=== PATIENT | female | born 1965 | race Caucasian/White ===

== ENCOUNTER 2019-01-26 13:10 | Emergency (ER) | payer OTHER ==
[~2019-01-26] VITALS: Ht 167.6 cm; Wt 56.7 kg
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
--- OUTSIDE RECORDS SUMMARY | ~2019-01-26 | XMS | Encounter Summary ---
Demographics + + + | Address | [address] | | | [place] [address] | + + + | Home Phone | | + + + | Preferred Language | Unknown | + + + | Marital Status | Single | + + + | Yarsani Affiliation | EPI | + + + | Race | White | + + + | Ethnic Group | Not or | + + + Author + + + | Author | [facility] | + + + | Organization | [facility] | + + + | Address | Unknown | + + + | Phone | Unavailable | + + + Support + + + + + | Name | Relationship | Address | Phone | + + + + + | Nurys Florse | ECON | [address] | | | | | [place], | | | | | [place] [address] | | + + + + + Care Team Providers + +------+ + | Care Press Technician Name | Role | Phone | + +------+ + | Juanjo Ro MD | PCP | | + +------+ + Encounter Details +--------+ + + + + | Date | Type | Department | Care Team | Description | +--------+ + + + + | 08/12/ | Document-Sc | UNKNOWN DEPARTMENT | Radiologist, | | | 2009 | anned | [address] | General Phillip | | | | | [address] | | | | | | [place], [place] | | | | | | [address] | | | +--------+ + + + + Social History + + [...] + + documented as of this encounter Plan of Treatment Not on filedocumented as of this encounter Visit Diagnoses Not on filedocumented in this encounter"
--- OUTSIDE RECORDS SUMMARY | ~2019-01-26 | XMS | Encounter Summary ---
Demographics + + + | Address | [address] | | | [place] [address] | + + + | Home Phone | | + + + | Preferred Language | Unknown | + + + | Marital Status | Single | + + + | Shinto Affiliation | EPI | + + + | Race | White | + + + | Ethnic Group | Not or | + + + Author + + + | Author | [facility] | + + + | Organization | [facility] | + + + | Address | Unknown | + + + | Phone | Unavailable | + + + Support + + + + + | Name | Relationship | Address | Phone | + + + + + | Nurys Flores | ECON | [address] | | | | | [place], | | | | | [place] [address] | | + + + + + Care Team Providers + +------+ + | Care Client Server Developer Name | Role | Phone | + +------+ + | Juanjo Ro MD | PCP | | + +------+ + Encounter Details +--------+ + + + + | Date | Type | Department | Care Team | Description | +--------+ + + + + | 01/20/ | Ancillary | Registration [id number] | Victor Mnauel Crowley MD | | | 2006 | Registratio | [address] | | | | | n | Alex Mailcode: [id number] | | | | | | [place], [place] | | | | | | [address] | | | | | | [phone] | | | +--------+ + + + [...]
--- OUTSIDE RECORDS SUMMARY | ~2019-01-26 | XMS | Encounter Summary ---
Demographics + + + | Address | [address] | | | [place] [address] | + + + | Home Phone | | + + + | Preferred Language | Unknown | + + + | Marital Status | Single | + + + | Advent Affiliation | EPI | + + + | Race | White | + + + | Ethnic Group | Not or | + + + Author + + + | Author | [facility] | + + + | Organization | [facility] | + + + | Address | Unknown | + + + | Phone | Unavailable | + + + Support + + + + + | Name | Relationship | Address | Phone | + + + + + | Nurys Flores | ECON | [address] | | | | | [place], | | | | | [place] [address] | | + + + + + Care Team Providers + +------+ + | Care Division Chair Name | Role | Phone | + +------+ + | Juanjo Ro MD | PCP | | + +------+ + Reason for Visit + + + | Reason | Comments | + + + | Pre-op evaluation | L clavicle | + + + Consult to [place] (Routine) +--------+--------+ + + + + | Status | Reason | Specialty | Diagnoses / | Referred By | Referred To | | | | | Procedures | Contact | Contact | +--------+--------+ + + + + | Closed | | Orthopedics | Diagnoses | Keo | [facility] | | | | | Other | MD Victor Manuel | [facility] [address] | | | | | complication | [address] | [address] | | | | | s due to | [address] | | | | | other | Rd | Mailcode: | | | | | internal | [place], [place] | [id number] | | | | | orthopedic | [address] | [facility] | | | | | device, | | [facility] | | | | | implant, and | | [place], [place] | | | | | graft s/p | | [address] | | | | | left | | Phone: | | | | | Artis | | [phone] | | | | | cc ligament | | Fax: | | | | | reconstructi | | [phone] | | | | | on | | | | | | | Painful | | | | | | | hardware | | | | | | | Procedures | | | | | | | AL REMOVAL | | | | | | | DEEP IMPLANT | | | | | | | hardware | | | | | | | removal left | | | | | | | clavicle | | | +--------+--------+ + + + + Encounter Details +--------+---------+ + + + | Date | Type | Department | Care Team | Description | +--------+---------+ + + + | 07/12/ | Office | Orthopaedics at | Victor Manuel Crowley MD | Other Specified | | 2008 | Visit | [facility] [address] | | Pre-Operative | | | | [address] | | Examination (Primary | | | | Mail[address]: [id number] | | Dx) | | | | [facility] | | | | | | [place], [place] | | | | | | [address] | | | | | | [phone] | | | +--------+---------+ + + + Social History [...] + + + | Blood Pressure | 106/79 | 07/12/2008 2:23 PM | | | | | PDT | | + + + + + | Pulse | 86 | 07/12/2008 2:23 PM | | | | | PDT | | + + + + + | Temperature | 36.9 C (98.4 F) | 07/12/2008 2:23 PM | | | | | PDT | | + + + + + | Respiratory Rate | 17 | 07/12/2008 2:23 PM | | | | | PDT | | + + + + + | Oxygen Saturation | - | - | | + + + + + | Inhaled Oxygen | - | - | | | Concentration | | | | + + + + + | Weight | - | - | | + + + + + | Height | - | - | | + + + + + | Body Mass Index | - | - | | + + + + + documented in this encounter Patient Instructions Patient Instructions Jacquelyn Milton - 06/29/2008 4:46 PM PDTRegistration Locations (please ch easton in at one of the following registration desks prior to surgery) For surgeries scheduled to take place on the [place] at the [facility]: Surgeries scheduled in the [facility] ([address] [place] [address]): registration is located on the 4th floor of [facility] (Day Surgery). Surgeries scheduled in the [facility]: registration is located on the 9th floor. Surgeries scheduled in [facility]: registration is located on the 6th floor. Surgeries scheduled in the [facility]: registration is located i n the [facility] on the first floor. For surgeries scheduled to take place at the [facility]: registration is l ocated on the 4th floor (Surgery Center). Important Information Due to the increased prevalence of pests in our community, we are asking patients to partne r with us to keep our hospital clean. If you have noticed bugs or other pests in your home, on your belongings or on your body, please contact your doctor's office prior to your admis trace. For your safety and protection, please limit what you bring to the hospital. All valuables should be left at home. This includes pillows, blankets, clothing, purses, wallets, money an d jewelry. Patients may not bring personal electronics into the hospital, including hairdry ers, electric eric, radios and CD players. If you use specialized medical equipment at [facility], please check with your provider before bringing it with you into the hospital. Registration Process for all Admissions/Surgeries Please bring your insurance card(s) with you and be prepared to pay any co-payment, co-insu naveen or deposit that may be required. Once you arrive at the registration desk, you will be interviewed by a Patient Access Servi ce Specialist (ASPEN). Demographics will be verified (example: name, date of , Social Se curity Number, address, insurance). You will be asked to sign some paperwork: Terms and Conditions of Service, Notice of Privac y Practices Acknowledgement and Genetic Testing Opt Out. You will be given some paperwork: copies of any forms signed by you, Patient Rights, Respon sibilities and Safety, Understanding Advance Directives, and Smoking Cessation Brochure. Registration Locations (please check in at one of the following registration desks prior to surgery) For surgeries scheduled to take place on the north [place] at the [facility]: Surgeries scheduled in the [facility] ( North): registration is located on the 4th floor of [facility] (Day Surgery). Surgeries scheduled in the [facility]: registration is located on the 9th floor. Surgeries scheduled in [facility]: registration is located on the 6th floor. Surgeries scheduled in the [facility]: registration is located i n the [facility] on the first floor. For surgeries scheduled to take place at the [facility]: registration is l ocated on the 4th floor (Surgery Center). Important Information Due to the increased prevalence of pests in our community, we are asking patients to partne r with us to keep our hospital clean. If you have noticed bugs or other pests in your home, on your belongings or on your body, please contact your doctor's office prior to your admis trace. For your safety and protection, please limit what you bring to the hospital. All valuables should be left at home. This includes pillows, blankets, clothing, purses, wallets, money an d jewelry. Patients may not bring personal electronics into the hospital, including hairdry ers, electric eric, radios and CD players. If you use specialized medical equipment at [facility], please check with your provider before bringing it with you into the hospital. Registration Process for all Admissions/Surgeries Please bring your insurance card(s) with you and be prepared to pay any co-payment, co-insu naveen or deposit that may be required. Once you arrive at the registration desk, you will be interviewed by a Patient Access Servi ce Specialist (ASPEN). Demographics will be verified (example: name, date of , Social Se curity Number, address, insurance). You will be asked to sign some paperwork: Terms and Conditions of Service, Notice of Privac y Practices Acknowledgement and Genetic Testing Opt Out. You will be given some paperwork: copies of any forms signed by you, Patient Rights, Respon sibilities and Safety, Understanding Advance Directives, and Smoking Cessation Brochure. documented in this encounter Progress Notes Victor Manuel Crowley MD - 07/12/2008 3:51 PM PDTI saw and evaluated the patient. I agree with the findings and the plan of care as documented in the resident s note. Victor Manuel Crowley M.D. Infection Control Specialist General Orthopaedics, Trauma oque Santana MD - 07/12/2008 2:48 PM PDT Neeta Leong presents today for preoperative evaluation Diagnosis: Encounter Diagnoses Code Name Primary? Qualifier V72.83 Other Specified Pre-Operative Examination Planned Procedure: Removal of L coracoclavicular screw History of Present Illness: S/p modified Serrano-Kwan procedure after trauma; now with L sh oulder pain after fall with relatively painless ROM. Indicated for removal of hardware. Incidentally, she has some intermittent numbness and tingling in bilateral hands; occurring with resting on elbow and with waking up at night needing to "wring out" hands No past medical history on file. Past Surgical History Procedure Date Hx tonsillectomy 1969 Hx tubal ligation 1996 Hx knee surgery Right Knee Allergies: Amoxicillin No family history on file. Current outpatient prescriptions Medication Sig Dispense Refill CALCIUM ORAL twice a day MULTIVITAMINS OR Take by mouth once daily. oxycodone (immediate release) 15 mg Oral Tablet 1 tab po q4-6 hr prn pain oxycodone (immediate release) 5 mg Oral Capsule Take 5 mg by mouth every six hours as n eeded STOOL SOFTENER OR Take by mouth once daily. VITAMIN D OR one pill in the morning Review of systems: Negative for shortness of breath, chest pain, abdominal pain, fevers or chills. Physical Examination: Gen: NAD No increased work of breathing; no wheezes RRR LUE: AROM/PROM FF110, Ab 160, IR T7, ER 80 SILT m/r/u distribution distally; decreased sensation over deltoid 5/5 delt/biceps/triceps/wrist flex/ex/fing abd/add Positive Daren's on R; bilateral mild Tinels at ulnar groove and carpal tunnel Slight 1st lumbrical wasting on R Imaging: Not done yet today Past films show slight screw lucency with elevation of head from clavicle without increased distraction of clavicle from coracoid After a PARQ conference was held, the patient freely signed the consent form. She will fol low up in clinic in approximately 1 week post-operatively. Should she have any questions o r concerns prior to her next visit, she will contact the clinic. Will discuss further tx of R shoulder and possible carpal tunnel vs ulnar neuropathy and wo rkup at next visit. documented in this en counter Plan of Treatment Not on filedocumented as of this encounter Visit Diagnoses + + | Diagnosis | + + | Other specified pre-operative examination - Primary | + + documented in this encounter
--- OUTSIDE RECORDS SUMMARY | ~2019-01-26 | XMS | Encounter Summary ---
Demographics + + + | Address | [address] | | | [place] [address] | + + + | Home Phone | | + + + | Preferred Language | Unknown | + + + | Marital Status | Single | + + + | Cheondoism Affiliation | EPI | + + + | Race | White | + + + | Ethnic Group | Not or | + + + Author + + + | Author | [facility] | + + + | Organization | [facility] | + + + | Address | Unknown | + + + | Phone | Unavailable | + + + Support + + + + + | Name | Relationship | Address | Phone | + + + + + | Nurys Flores | ECON | [address] | | | | | [place], | | | | | [place] [address] | | + + + + + Care Team Providers + +------+ + | Care Card Lacer Jacquard Name | Role | Phone | + +------+ + | Svetlana Cedillo | PCP | | | MD | | | + +------+ + Reason for Visit + + + | Reason | Comments | + + + | Pre-op evaluation | | + + + Encounter Details +--------+---------+ + + + | Date | Type | Department | Care Team | Description | +--------+---------+ + + + | 02/08/ | Office | Preoperative | Charo Spears, | Clavicle Fracture; | | 2007 | Visit | Medicine Clinic at | [facility] [address] [facility] [facility] | Closed Fracture of | | | | M[facility] 4th Floor Day | [address] | Proximal End of | | | | Stay [address] | [place], [place] | Humerus; Closed | | | | [address] | [address] | Fracture of Sacrum | | | | Mailcode: [id number] | [phone] | and Coccyx ([facility]); | | | | [facility] | | Other Specified | | | | [address] [place], [place] | | Pre-Operative | | | | [address] | | Examination | | | | [phone] | | | +--------+---------+ + + + [...] + + + | Blood Pressure | 108/72 | 02/09/2008 1:10 PM | | | | | PDT | | + + + + + | Pulse | 88 | 02/09/2008 1:10 PM | | | | | PDT | | + + + + + | Temperature | 36.3 C (97.3 F) | 02/09/2008 1:10 PM | | | | | PDT | | + + + + + | Respiratory Rate | 14 | 02/09/2008 1:10 PM | | | | | PDT | | + + + + + | Oxygen Saturation | 100% | 02/09/2008 1:10 PM | | | | | PDT | | + + + + + | Inhaled Oxygen | - | - | | | Concentration | | | | + + + + + | Weight | 59.9 kg (132 lb) | 02/09/2008 1:10 PM | | | | | PDT | | + + + + + | Height | 167.6 cm (5' 6") | 02/09/2008 1:10 PM | | | | | PDT | | + + + + + | Body Mass Index | 21.31 | 02/09/2008 1:10 PM | | | | | PDT | | + + + + + documented in this encounter Progress Charo Perla - 02/09/2008 1:34 PM PDTSee Scanned H&P. documented in this enco unter Plan of Treatment + + +--------+ + + | Name | Type | Priori | Associated Diagnoses | Order Schedule | | | | ty | | | + + +--------+ + + | MA COLLECTION VENOUS | Procedures | Routin | Clavicle Fracture | Ordered: 02/09/2008 | | BLOOD,VENIPUNCTURE | | e | Closed Fracture of | | | | | | Proximal End of | | | | | | Humerus Closed | | | | | | Fracture of Sacrum | | | | | | and Coccyx (HCC) | | | | | | Other Specified | | | | | | Pre-Operative | | | | | | Examination | | + + +--------+ + + documented as of this encounter Procedures + +--------+ + + + | Procedure Name | Priori | Date/Time | Associated Diagnosis | Comments | | | ty | | | | + +--------+ + + + | CAPILLARY BLOOD | Routin | 02/09/2008 | Clavicle Fracture | Results for this | | GLUCOSE (NO CHG), | e | 2:17 PM | Closed Fracture of | procedure are in the | | POC | | PDT | Proximal End of | results section. | | | | | Humerus Closed | | | | | | Fracture of Sacrum | | | | | | and Coccyx ([facility]) | | | | | | Other Specified | | | | | | Pre-Operative | | | | | | Examination | | + +--------+ + + + | TYPE AND SCREEN | Routin | 02/09/2008 | Clavicle Fracture | Results for this | | | e | 1:42 PM | Closed Fracture of | procedure are in the | | | | PDT | Proximal End of | results section. | | | | | Humerus Closed | | | | | | Fracture of Sacrum | | | | | | and Coccyx ([facility]) | | | | | | Other Specified | | | | | | Pre-Operative | | | | | | Examination | | + +--------+ + + + documented in this encounter Results CAPILLARY BLOOD GLUCOSE, POC (02/09/2008 2:17 PM PDT) + + + + + + | Component | Value | Ref Range | Performed | Pathologist | | | | | At | Signature | + + + + + + | BLOOD | 130 (A)Comment: fasting | 60 - 110 mg/dL | [facility] | | | GLUCOSE BY | | | OF CARE | | | MONITOR | | | TESTS | | + + + + + + + + + + + | Performing | Address | City/State/Zipcode | Phone Number | | Organization | | | | + + + + + | [facility] | [address] | [place], [place] | | | [facility] | [address] | [address] | | | TESTS | | | | + + + + + | [facility] | [address] | [place], [place] | | | TESTS | [address] | [address] | | + + + + + TYPE AND SCREEN (02/09/2008 1:42 PM PDT) + + + + + + | Component | Value | Ref Range | Performed | Pathologist | | | | | At | Signature | + + + + + + | ABO GROUP | A | | [facility] | | | | | | DEPARTMENT | | | | | | OF | | | | | | PATHOLOGY | | + + + + + + | RH TYPE | Positive | | [facility] | | | | | | DEPARTMENT | | | | | | OF | | | | | | PATHOLOGY | | + + + + + + | Antibody | Negative | | [facility] | | | Screen | | | DEPARTMENT | | | | | | OF | | | | | | PATHOLOGY | | + + + + + + + + | Specimen | + + | Blood - Blood | + + + + + + + | Performing | Address | City/State/Zipcode | Phone Number | | Organization | | | | + + + + + | [facility] DEPARTMENT [facility] | [address] | [place] [address] | | | PATHOLOGY | [address] | | | + + + + + | [facility] | [address] | [place] [address] | | | PATHOLOGY | [address] | | | + + + + + documented in this encounter Visit Diagnoses + + | Diagnosis | + + | Clavicle fracture Unspecified part of closed fracture of clavicle | + + | Closed fracture of proximal end of humerus Closed fracture of unspecified part of | | upper end of humerus | + + | Closed fracture of sacrum and coccyx (HCC) Closed fracture of sacrum and coccyx | | without mention of spinal cord injury | + + | Other specified pre-operative examination | + + documented in this encounter
--- OUTSIDE RECORDS SUMMARY | ~2019-01-26 | XMS | Encounter Summary ---
Demographics + + + | Address | [address] | | | [place] [address] | + + + | Home Phone | | + + + | Preferred Language | Unknown | + + + | Marital Status | Single | + + + | Confucianism Affiliation | EPI | + + + | Race | White | + + + | Ethnic Group | Not or | + + + Author + + + | Author | [facility] | + + + | Organization | [facility] | + + + | Address | Unknown | + + + | Phone | Unavailable | + + + Support + + + + + | Name | Relationship | Address | Phone | + + + + + | Nurys Flores | ECON | [address] | | | | | [place], | | | | | [place] [address] | | + + + + + Care Team Providers + +------+ + | Care Cloud Engagement Partner Name | Role | Phone | + [...] Description | +--------+---------+ + + + | 04/02/ | Office | Preoperative | Dinesh, | Preop Examination | | 2008 | Visit | Medicine Clinic at | [facility] | (Primary Dx) | | | | M[facility] 4th Day | | | | | | Stay [address] [facility] | | | | | | [address] | | | | | | Mailcode: [id number] | | | | | | Shira Jose | | | | | | [address] [place], [place] | | | | | | [address] | | | | | | [phone] | | | +--------+---------+ + + + [...] + + documented as of this encounter Progress Shelley Armstrong - 07/12/2008 3:15 PM PDTSee scanned phone visit documentation. documented in this e ncounter Plan of Treatment Not on filedocumented as of this encounter Visit Diagnoses + + | Diagnosis | + + | Preop examination - Primary Preoperative examination, unspecified | + + documented in this encounter"
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
--- OUTSIDE RECORDS SUMMARY | ~2019-01-26 | XMS | Encounter Summary ---
Demographics + + + | Address | [address] | | | [place] [address] | + + + | Home Phone | | + + + | Preferred Language | Unknown | + + + | Marital Status | Single | + + + | Sikhism Affiliation | EPI | + + + | Race | White | + + + | Ethnic Group | Not or | + + + Author + + + | Author | [facility] | + + + | Organization | [facility] | + + + | Address | Unknown | + + + | Phone | Unavailable | + + + Support + + + + + | Name | Relationship | Address | Phone | + + + + + | Nurys Flores | ECON | [address] | | | | | [place], | | | | | [place] [address] | | + + + + + Care Team Providers + +------+ + | Care Greeting Card Editor Name | Role | Phone | + [...] + + | 07/12/ | Office | Preoperative | [facility], [facility] [address] | Preop Examination | | 2008 | Visit | Medicine Clinic at | [address] | (Primary Dx) | | | | [facility] 4th Floor Day | [place] [address] | | | | | Stay [address] [facility] | | | | | | [address] | | | | | | Mailcode: [id number] | | | | | | [place] | | | | | | [address] [place], [place] | | | | | | [address] | | | | | | [phone] | | | +--------+---------+ + + + [...] this encounter Progress Shelley Armstrong - 07/12/2008 3:14 PM PDTSee scanned phone visit documentation. documented in this e ncounter Plan of Treatment Not on filedocumented as of this encounter Visit Diagnoses + + | Diagnosis | + + | Preop examination - Primary Preoperative examination, unspecified | + + documented in this encounter"
--- OUTSIDE RECORDS SUMMARY | ~2019-01-26 | XMS | Encounter Summary ---
Demographics + + + | Address | [address] | | | [place] [address] | + + + | Home Phone | | + + + | Preferred Language | Unknown | + + + | Marital Status | Single | + + + | Orthodoxy Affiliation | EPI | + + + | Race | White | + + + | Ethnic Group | Not or | + + + Author + + + | Author | [facility] | + + + | Organization | [facility] | + + + | Address | Unknown | + + + | Phone | Unavailable | + + + Support + + + + + | Name | Relationship | Address | Phone | + + + + + | Nurys Flores | ECON | [address] | | | | | [place], | | | | | [place] [address] | | + + + + + Care Team Providers + +------+ + | Care Fire Captain Name | Role | Phone | + +------+ + | Juanjo Ro MD | PCP | | + +------+ + Reason for Visit +--------+ + | Reason | Comments | +--------+ + | Other | | +--------+ + Encounter Details +--------+ + + + + | Date | Type | Department | Care Team | Description | +--------+ + + + + | 09/18/ | Telephone | Orthopaedics at | Victor Manuel Crowley MD | Other | | 2008 | | [facility] [address] | | | | | | [address] | | | | | | Mailcode: [id number] | | | | | | [place] | | | | | | [place], [place] | | | | | | [address] | | | | | | [phone] | | | +--------+ + + + [...] as of this encounter Plan of Treatment + +---------+--------+ + + | Name | Type | Priori | Associated Diagnoses | Order Schedule | | | | ty | | | + +---------+--------+ + + | X-RAY CLAVICLE | Imaging | Routin | Clavicle Fracture | Ordered: 09/22/2007 | | COMPLETE | | e | | | + +---------+--------+ + + documented as of this encounter Visit Diagnoses + + | Diagnosis | + + | Clavicle fracture Unspecified part of closed fracture of clavicle | + + | Closed fracture of proximal end of humerus Closed fracture of unspecified part of | | upper end of humerus | + + documented in this encounter"
--- OUTSIDE RECORDS SUMMARY | ~2019-01-26 | XMS | Encounter Summary ---
Demographics + + + | Address | [address] | | | [place] [address] | + + + | Home Phone | | + + + | Preferred Language | Unknown | + + + | Marital Status | Single | + + + | Judaism Affiliation | EPI | + + + | Race | White | + + + | Ethnic Group | Not or | + + + Author + + + | Author | [facility] | + + + | Organization | [facility] | + + + | Address | Unknown | + + + | Phone | Unavailable | + + + Support + + + + + | Name | Relationship | Address | Phone | + + + + + | Nurys Flores | ECON | [address] | | | | | [place], | | | | | [place] [address] | | + + + + + Care Team Providers + +------+ + | Care Art Class Model Name | Role | Phone | + [...] | | | | | Stay [address] [facility] | | | | | | [address] | | | | | | Mailcode: [id number] | | | | | | [place] | | | | | | [address] [place], [place] | | | | | | [address] | | | | | | [phone] | | | +--------+---------+ + + + [...]
--- OUTSIDE RECORDS SUMMARY | ~2019-01-26 | XMS | Encounter Summary ---
Demographics + + + | Address | [address] | | | [place] [address] | + + + | Home Phone | | + + + | Preferred Language | Unknown | + + + | Marital Status | Single | + + + | Scientologist Affiliation | EPI | + + + | Race | White | + + + | Ethnic Group | Not or | + + + Author + + + | Author | [facility] | + + + | Organization | [facility] | + + + | Address | Unknown | + + + | Phone | Unavailable | + + + Support + + + + + | Name | Relationship | Address | Phone | + + + + + | Nurys Flores | ECON | [address] | | | | | [place], | | | | | [place] [address] | | + + + + + Care Team Providers + +------+ + | Care University Controller Name | Role | Phone | + +------+ + PCP | Unavailable | + +------+ + Encounter Details +--------+ + + + + | Date | Type | Department | Care Team | Description | +--------+ + + + + | 12/10/ | Results | Registration 1 | Juancarlos, | | | 2006 | Only | [address] | Rm Moreno MD [place] | | | | | Alex Mail[address]: [id number] | [facility] | | | | | [place] [address] | | | | | [address] | [address] | | | | | [phone] | [place] [address] | | +--------+ + + + + Social History + +-------+ +--------+------+ | Tobacco Use | Types | Packs/Day | Years | Date | | | | | Used | | + +-------+ +--------+------+ | Never Assessed | | | | | + +-------+ +--------+------+ + + + | Sex Assigned at [...] Not on filedocumented as of this encounter Procedures + +--------+ + + + | Procedure Name | Priori | Date/Time | Associated Diagnosis | Comments | | | ty | | | | + +--------+ + + + | X-RAY ABDOMEN 1 VIEW | Routin | 12/10/2006 | | Results for this | | | e | 12:15 PM | | procedure are in the | | | | PDT | | results section. | + +--------+ + + + documented in this encounter Results ABDOMEN 1 VIEW (12/10/2006 12:15 PM PDT) + + + + + + | Component | Value | Ref Range | Performed | Pathologist | | | | | At | Signature | + + + + + + | ABDOMEN, 1 | Radiologist 1: TAMARA, | | | | | VIEW (JARED) | Fede TEJADAEXAM: AP | | | | | | view of lower chest and | | | | | | upper abdomen for | | | | | | feeding tube. | | | | | | COMPARISON: None | | | | | | FINDINGS: Feeding tube | | | | | | has been placed with | | | | | | tip projecting in | | | | | | thegastric body. | | | | | | Evaluation of lungs | | | | | | limited as technique | | | | | | wastailored for feeding | | | | | | tube | | | | | | placement.IMPRESSION: 1. | | | | | | Feeding tube tip | | | | | | projecting in the | | | | | | gastric body. | | | | + + + + + + + + | Specimen | + + | | + + + +---------+ + + | Performing | Address | City/State/Zipcode | Phone Number | | Organization | | | | + +---------+ + + | [facility] | | | | | RADIOLOGY | | | | + +---------+ + + documented in this encounter Visit Diagnoses Not on filedocumented in this encounter"
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
--- OUTSIDE RECORDS SUMMARY | ~2019-01-26 | XMS | Encounter Summary ---
Demographics + + + | Address | [address] | | | [place] [address] | + + + | Home Phone | | + + + | Preferred Language | Unknown | + + + | Marital Status | Single | + + + | Sikh Affiliation | EPI | + + + | Race | White | + + + | Ethnic Group | Not or | + + + Author + + + | Author | [facility] | + + + | Organization | [facility] | + + + | Address | Unknown | + + + | Phone | Unavailable | + + + Support + + + + + | Name | Relationship | Address | Phone | + + + + + | Nurys Flores | ECON | [address] | | | | | [place], | | | | | [place] [address] | | + + + + + Care Team Providers + +------+ + | Care Pump Room Operator Name | Role | Phone | + +------+ + PCP | Unavailable | + +------+ + Encounter Details +--------+ + + + + | Date | Type | Department | Care Team | Description | +--------+ + + + + | 12/09/ | Respiratory | Respiratory | Marilee Cuevas | | | 2006 | Therapy | Therapy [address] [facility] | [phone] | | | | | [address] | | | | | | Mailcode: [id number] | | | | | | [place], [place] | | | | | | [address] | | | | | | [phone] | | | +--------+ + + + [...] | + +--------+ + + + | RESP CARE THERAPY | Routin | 12/10/2006 | | Results for this | | | e | 1:45 AM | | procedure are in the | | | | PDT | | results section. | + +--------+ + + + | RESP CARE THERAPY | Routin | 12/09/2006 | | Results for this | | | e | 1:00 PM | | procedure are in the | | | | PDT | | results section. | + +--------+ + + + | RESP CARE THERAPY | Routin | 12/09/2006 | | Results for this | | | e | 2:33 AM | | procedure are in the | | | | PDT | | results section. | + +--------+ + + + documented in this encounter Results RESP CARE THERAPY (12/10/2006 1:45 AM PDT) + + + + + + | Component | Value | Ref Range | Performed | Pathologist | | | | | At | Signature | + + + + + + | RESPIRATORY | Pain Assessment:Patients | | [facility] | | | CARE | pain assessed and was a | | RESPIRATORY | | | | 0 on a scale of | | THERAPY | | | | 0-10.Interventions:Patie | | | | | | nt suctioned to | | | | | | facilitate secretion | | | | | | clearance.Assessment:Sharonda | | | | | | ath Sounds: rhonchi | | | | | | bilateral .Cough/Sputum: | | | | | | The patient required | | | | | | deep suction. Secretions | | | | | | obtained: thickyellow | | | | | | .Outcome after therapy: | | | | | | Patient's breath sounds | | | | | | improved after | | | | | | therapy.Treatment | | | | | | Plan:No changes in | | | | | | therapy are | | | | | | indicated.Nasal cannula | | | | | | at 3 LPM.Electronically | | | | | | Signed by: Salazar Morris, | | | | | | POULTRY HUSBANDRY TEACHER | | | | + + + + + + + + | Specimen | + + | | + + + + + | Narrative | Performed At | + + + | Ordered by an unspecified provider. | [facility] | | | RESPIRATORY | | | THERAPY | + + + + + + + + | Performing | Address | City/[facility]/Zipcode | Phone Number | | Organization | | | | + + + + + | [facility] | [address] | [place], [place] | | | THERAPY | [address] | [address] | | + + + + + | [facility] | [address] | [place], [place] | | | THERAPY | [address] | [address] | | + + + + + RESP CARE THERAPY (12/09/2006 1:00 PM PDT) + + + + + + | Component | Value | Ref Range | Performed | Pathologist | | | | | At | Signature | + + + + + + | RESPIRATORY | Pain Assessment:Patients | | [facility] | | | CARE | pain assessed and was a | | RESPIRATORY | | | | 0 on a scale of | | THERAPY | | | | 0-10.Interventions:Patie | | | | | | nt suctioned to | | | | | | facilitate secretion | | | | | | clearance.Assessment:Sharonda | | | | | | ath Sounds: rhonchi | | | | | | .Cough/Sputum: Patient | | | | | | had a productive cough. | | | | | | Secretions obtained: | | | | | | thinwhite .Outcome after | | | | | | therapy: Patient's | | | | | | breath sounds improved | | | | | | after therapy.Treatment | | | | | | Plan:No changes in | | | | | | therapy are | | | | | | indicated.Electronically | | | | | | Signed by: Alta | | | | | | Zainab, | | | | + + + + + + + + | Specimen | + + | | + + + + + | Narrative | Performed At | + + + | Ordered by an unspecified provider. | [facility] | | | RESPIRATORY | | | THERAPY | + + + + + + + + | Performing | Address | City/State/Zipcode | Phone Number | | Organization | | | | + + + + + | [facility] | [address] | [place], [place] | | | THERAPY | [address] | [address] | | + + + + + | [facility] | [address] | [place], [place] | | | THERAPY | [facility] | [address] | | + + + + + RESP CARE THERAPY (12/09/2006 2:33 AM PDT) + + + + + + | Component | Value | Ref Range | Performed | Pathologist | | | | | At | Signature | + + + + + + | RESPIRATORY | Nasal cannula at 3 | | [facility] | | | CARE | LPM.Electronically | | RESPIRATORY | | | | Signed by: Salazar Morris, | | THERAPY | | | | POULTRY HUSBANDRY TEACHER | | | | + + + + + + + + | Specimen | + + | | + + + + + | Narrative | Performed At | + + + | Ordered by an unspecified provider. | [facility] | | | RESPIRATORY | | | THERAPY | + + + + + + + + | Performing | Address | City/State/Zipcode | Phone Number | | Organization | | | | + + + + + | [facility] | [address] | [place], [place] | | | THERAPY | [address] | [address] | | + + + + + | [facility] | [address] | [place], [place] | | | THERAPY | [facility] | [address] | | + + + + + documented in this encounter Visit Diagnoses Not on filedocumented in this encounter"
--- OUTSIDE RECORDS SUMMARY | ~2019-01-26 | XMS | Encounter Summary ---
Demographics + + + | Address | [address] | | | [place] [address] | + + + | Home Phone | | + + + | Preferred Language | Unknown | + + + | Marital Status | Single | + + + | Taoist Affiliation | EPI | + + + [...] + | Nurys Flores | ECON | [address] | | | | | [place], | | | | | [place] [address] | | + + + + + Care Team Providers + +------+ + | Care Zipper Setter Lockstitch Name | Role | Phone | + +------+ + | Juanjo Ro MD | PCP | | + +------+ + Encounter Details +--------+ + + + + | Date | Type | Department | Care Team | Description | +--------+ + + + + | 07/12/ | Senior Account Executive | Orthopaedics at | Victor Manuel Crowley MD | Clavicle Fracture | | 2008 | | [facility] [address] | | (Primary Dx) | | | | [address] | | | | | | Mailcode: [id number] | | | | | | [facility] | | | | | | [place] | | | | | | [address] | | | | | | [phone] | | | +--------+ + + + [...] on filedocumented as of this encounter Results X-RAY CLAVICLE COMPLETE (07/12/2008 3:23 PM PDT) + + + + + + | Component | Value | Ref Range | Performed | Pathologist | | | | | At | Signature | + + + + + + | CLAVICLE | COMPLETE CLAVICLE: | | | | | BILAT | 07/12/2008 Dictated | | | | | | 07/12/2008COMPARISON: | | | | | | 05/03/2008.FINDINGS: | | | | | | There is | | | | | | redemonstration of | | | | | | resection of the distal | | | | | | leftclavicle. | | | | | | Coracoclavicular screw | | | | | | shows increased lucency | | | | | | around itsclavicular | | | | | | and acromial portions, | | | | | | with the lucency | | | | | | measuring up to 4mm. | | | | | | Up to 2 mm distance | | | | | | between the washer and | | | | | | adjacent clavicle | | | | | | isunchanged.The | | | | | | glenohumeral joint is | | | | | | maintained.IMPRESSION:In | | | | | | creased loosening around | | | | | | the coracoclavicular | | | | | | screw. No change | | | | | | inalignment.END | | | | | | IMPRESSIONI have | | | | | | personally viewed this | | | | | | procedure/exam and | | | | | | reviewed this | | | | | | report.Author: MARIA | | | | | | Fede BOTELLOReviewer: MARIA | | | | | | Fede BOTELLOSTATUS FINAL | | | | | | / Dr. MARIA PEREZ | | | | | | PRELIMINARY - UNSIGNED / | | | | | | Dr. MARIA BOTELLO | | | | + + + + + + + + | Specimen | + + | | + + + +---------+ + + | Performing | Address | City/State/Zipcode | Phone Number | | Organization | | | | + +---------+ + + | [facility] | | | | [facility] | | | | + +---------+ + + documented in this encounter Visit Diagnoses + + | Diagnosis | + + | Clavicle fracture - Primary Unspecified part of closed fracture of clavicle | + + documented in this encounter"
--- OUTSIDE RECORDS SUMMARY | ~2019-01-26 | XMS | Clinical Summary ---
Demographics + + + | Address | [address] | | | [place] [address] | + + + | Home Phone | | + + + | Preferred Language | Unknown | + + + | Marital Status | Single | + + + | Holiness Affiliation | EPI | + + + | Race | White | + + + | Ethnic Group | Not or | + + + Author + + + | Author | [facility] | + + + | Organization | [facility] | + + + | Address | Unknown | + + + | Phone | Unavailable | + + + Support + + + + + | Name | Relationship | Address | Phone | + + + + + | Nurys Flores | ECON | [phone] | | | | | [place], | | | | | [place] [address] | | + + + + + Care Team Providers + +------+ + | Care Sign Language Interpreter Name | Role | Phone | + +------+ + PCP | Unavailable | + +------+ + Source Comments ROSIE is fully live on both [facility] and [facility] Allergies + + + + + + | Active Allergy | Reactions | Severity | Noted | Comments | | | | | Date | | + + + + + + | Amoxicillin | Hives | | 12/18/19 | | | | | | 07 | | + + + + + + Medications + + + +---------+------+------+-------+ | Medication | Sig | Dispensed | Refills | Star | End | Statu | | | | | | t | Date | s | | | | | | Date | | | + + + +---------+------+------+-------+ | CALCIUM ORAL | twice a day | | 0 | | | Activ | | | | | | | | e | + + + +---------+------+------+-------+ | VITAMIN D OR | one pill in the | | 0 | | | Activ | | | morning | | | | | e | + + + +---------+------+------+-------+ | MULTIVITAMINS OR | Take by mouth once | | 0 | | | Activ | | | daily. | | | | | e | + + + +---------+------+------+-------+ | STOOL SOFTENER OR | Take by mouth once | | 0 | | | Activ | | | daily. | | | | | e | + + + +---------+------+------+-------+ | | Take 1 Tab by mouth | | 0 | | | Activ | | oxycodone-acetaminop | every four hours as | | | | | e | | hen 5-325 mg Oral | needed Not to exceed | | | | | | | Tablet | 12 tablets per any | | | | | | | | 24 hour period. | | | | | | + + + +---------+------+------+-------+ Active Problems + + + | Problem | Noted Date | + + + | Impingement syndrome of shoulder | 08/10/2008 | + + + | shoulder | 05/04/2008 | + + + | Clavicle fracture | 01/20/2007 | + + + | Closed fracture of proximal end of humerus | 01/20/2007 | + + + | Closed fracture of sacrum and coccyx | 01/20/2007 | + + + Social History + + [...] recent travel history available. | + + Last Filed Vital Signs + + + [...] + | Respiratory Rate | 16 | 07/13/2008 4:00 PM | | | | | PDT | | + + + + + | Oxygen Saturation | 97% | 07/13/2008 4:00 PM | | | | | PDT [...] | | + + + + + Plan of Treatment + + + + + | Health Maintenance | Due Date | Last Done | Comments | + + + + + | Pneumococcal | | | | | vaccination (1 of 1 | 0 | | | | - PPSV23) | | | | + + + + + | Influenza (Flu) | | | | | vaccination (#1) | 9 | | | + + + + + Results Not on filefrom Last 3 Months
--- OUTSIDE RECORDS SUMMARY | ~2019-01-26 | XMS | Encounter Summary ---
Demographics + + + | Address | [address] | | | [place] [address] | + + + | Home Phone [...] Author + + + | Author | [facility] | + + + | Organization | [facility] | + + + | Address | Unknown | + + + | Phone | Unavailable | + + + Support + + + + + | Name | Relationship | Address | Phone | + + + + + | Nurys Flores | ECON | [phone] | | | | | [place], | | | | | [place] [address] | | + + + + + Care Team Providers + +------+ + | Care Branch Library Clerk Name | Role | Phone | + [...] | Medicine Clinic at | [facility] [address] | Closed Fracture of | | | | [facility] 4th Floor Day | [address] | Proximal End of | | | | Stay [address] | [place], [place] | Humerus; Closed | | | | [address] | [address] | Fracture of Sacrum | | | | Mailcode: [id number] | [phone] | and Coccyx ([facility]); | | | | [facility] | | Other Specified | | | | [address], [place] | | Pre-Operative | | | | [address] | | Examination | | | | [phone] | | | +--------+---------+ + + + [...] | + + +--------+ + + | [place] COLLECTION VENOUS | Procedures | Routin | [...] | | | | | and Coccyx ([facility]) | | | | | | Other [...] | | | | | and Coccyx ([facility]) | | | | | | Other [...] [facility] | [address] | [place], [place] | | | [facility] | [address] | [address] | | | TESTS | | | | + + + + + | [facility] | [address] | [place], [place] | | | TESTS | [address] | [address] | | + + + + + [...] | + + + + + | [facility] | [address] | [place] [address] | | | PATHOLOGY | [address] | | | + + + + + | [facility] | [address] | [place] [address] | | | PATHOLOGY | [address] [...]
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
--- OUTSIDE RECORDS SUMMARY | ~2019-01-26 | XMS | Encounter Summary ---
Demographics + + + | Address | [address] | | | [place] [address] | + + + | Home Phone | | + + + | Preferred Language | Unknown | + + + | Marital Status | Single | + + + | Buddhism Affiliation | EPI | + + + | Race | White | + + + | Ethnic Group | Not or | + + + Author + + + | Author | [facility] | + + + | Organization | [facility] | + + + | Address | Unknown | + + + | Phone | Unavailable | + + + Support + + + + + | Name | Relationship | Address | Phone | + + + + + | Nurys Flores | ECON | [phone] | | | | | [place], | | | | | [place] [address] | | + + + + + Care Team Providers + +------+ + | Care Shake Backboard Notcher Name | Role | Phone | + [...] | | | | Sprain and | [address] | [address] | | | | | strain of | Rd | Mailcode: | | | | | other | [place], [place] | [id number] | | | | | specified | [address] | [facility]ician[facility] | | | | | sites of | | [facility] | | | | | shoulder and | | [place], [place] | | | | | upper arm | | [address] | | | | | left distal | | Phone: | | | | | clavicle | | [phone] | | | | | nonuion wiht | | Fax: | | | | | medial | | [phone] | | | | | coracoclavic | | | | | | | ular | | | | | | | ligament | | | | | | | rupture | | | | | | | Procedures | | | | | | | TX PART | | | | | | | EXCIS | | | | | | | CLAVICLE [place] | | | | | | | PARTIAL | | | | | | | REMOVAL, | | | | | | | CLA[place]LE [place] | | | | | | | [...] | | Fracture | | | | [place], [place] | | | | | | [address] | | | | | | [phone] | | | +--------+---------+ + + + [...] surgeries scheduled to take place on the andover at the [facility]: Surgeries scheduled in the [facility] ([address] [place] [address]): registration is located on the 4th floor of [facility] (Day Surgery). Surgeries scheduled in the [facility]: registration is located on the 9th floor. Surgeries scheduled in [facility]: registration is located on the 6th floor. Surgeries scheduled in the [facility]: registration is located i n the [facility] on the first floor. For surgeries scheduled to take place at the [facility]: registration is l ocated on the 4th [...]
--- OUTSIDE RECORDS SUMMARY | ~2019-01-26 | XMS | Encounter Summary ---
Demographics + + + | Address | [address] | | | [place] [address] | + + + | Home Phone | | + + + | Preferred Language | Unknown | + + + | Marital Status | Single | + + + | Yazdanism Affiliation | EPI | + + + | Race | White | + + + | Ethnic Group | Not or | + + + Author + + + | Author | [facility] | + + + | Organization | [facility] | + + + | Address | Unknown | + + + | Phone | Unavailable | + + + Support + + + + + | Name | Relationship | Address | Phone | + + + + + | Nurys Flores | ECON | [address] | | | | | [place], | | | | | [place] [address] | | + + + + + Care Team Providers + +------+ + | Care Supervisor [employer] Name | Role | Phone | + [...] | upper end | REFERRING | [address] [place], | | | | | of humerus | PROVIDER PER | [place] | | | | | Closed | PT | [address] | | | | | fracture of [...] End of Humerus; | | | | [place], [place] | | Impingement Syndrome | | | | [address] | | of Shoulder Region | | | | [phone] | | | +--------+---------+ + + + [...]
--- OUTSIDE RECORDS SUMMARY | ~2019-01-26 | XMS | Encounter Summary ---
Demographics + + + | Address | [address] | | | [place] [address] | + + + | Home Phone | | + + + | Preferred Language | Unknown | + + + | Marital Status | Single | + + + | [employer]aritan Affiliation | EPI | + + + | Race | White | + + + | Ethnic Group | Not or | + + + Author + + + | Author | [facility] | + + + | Organization | [facility] | + + + | Address | Unknown | + + + | Phone | Unavailable | + + + Support + + + + + | Name | Relationship | Address | Phone | + + + + + | Nurys Flores | ECON | [address] | | | | | [place], | | | | | [place] [address] | | + + + + + Care Team Providers + +------+ + | Care Receptionist Clerk Name | Role | Phone | + +------+ + | Juanjo Ro MD | PCP | | + +------+ + Encounter Details +--------+ + + + + | Date | Type | Department | Care Team | Description | +--------+ + + + + | 12/07/ | Hospital | Registration 3181 | Sam Mata MD | | | 2006 | Activity | [address] | [address] | | | | | Alex Mailcode: [id number] | [place], | | | | | [place], [place] | [place] [address] | | | | | [address] | [phone] | | | | | [phone] | | | +--------+ + + + [...] | + +--------+ + + + | AMMONIA, PLASMA | Routin | 12/13/2006 | | Results for this | | | e | 8:02 AM | | procedure are in the | | | | PDT | | results section. | + +--------+ + + + | COMPLETE METABOLIC | Routin | 12/12/2006 | | Results for this | | SET | e | 3:10 PM | | procedure are in the | | (NA,K,CL,CO2,BUN,CRE | | PDT | | results section. | | AT,GLUC,CA,AST,ALT,B | | | | | | JORDEN TOTAL,ALK | | | | | | PHOS,ALB,PROT TOTAL) | | | | | + +--------+ + + + | CBC ONLY | Routin | 12/12/2006 | | Results for this | | | e | 3:10 PM | | procedure are in the | | | | PDT | | results section. | + +--------+ + + + | AMMONIA, PLASMA | Routin | 12/12/2006 | | Results for this | | | e | 3:10 PM | | procedure are in the | | | | PDT | | results section. | + +--------+ + + + | BASIC METABOLIC SET | Routin | 12/11/2006 | | Results for this | | (NA, K, CL, TCO2, | e | 12:42 PM | | procedure are in the | | BUN, CR, GLU, CA) | | PDT | | results section. | + +--------+ + + + | CBC ONLY | Routin | 12/11/2006 | | Results for this | | | e | 12:42 PM | | procedure are in the | | | | PDT | | results section. | + +--------+ + + + | BASIC METABOLIC SET | Routin | 12/11/2006 | | Results for this | | (NA, K, CL, TCO2, | e | 8:50 AM | | procedure are in the | | BUN, CR, GLU, CA) | | PDT | | results section. | + +--------+ + + + | CBC ONLY | Routin | 12/11/2006 | | Results for this | | | e | 8:50 AM | | procedure are in the | | | | PDT | | results section. | + +--------+ + + + | PHOSPHORUS, PLASMA | Routin | 12/11/2006 | | Results for this | | | e | 8:50 AM | | procedure are in the | | | | PDT | | results section. | + +--------+ + + + | MAGNESIUM, PLASMA | Routin | 12/11/2006 | | Results for this | | | e | 8:50 AM | | procedure are in the | | | | PDT | | results section. | + +--------+ + + + | LIVER SET | Routin | 12/11/2006 | | Results for this | | (AST,ALT,BILI | e | 12:01 AM | | procedure are in the | | TOTAL,BILI | | PDT | | results section. | | DIRECT,ALK | | | | | | PHOS,ALB,PROT TOTAL) | | | | | + +--------+ + + + | DIFFERENTIAL | Urgent | 12/10/2006 | | Results for this | | | | 5:05 AM | | procedure are in the | | | | PDT | | results section. | + +--------+ + + + | CBC, WITH | Urgent | 12/10/2006 | | Results for this | | DIFFERENTIAL | | 5:05 AM | | procedure are in the | | | | PDT | | results section. | + +--------+ + + + | BASIC METABOLIC SET | Urgent | 12/10/2006 | | Results for this | | (NA, K, CL, TCO2, | | 5:05 AM | | procedure are in the | | BUN, CR, GLU, CA) | | PDT | | results section. | + +--------+ + + + | DIFFERENTIAL | Urgent | 12/10/2006 | | Results for this | | | | 4:45 AM | | procedure are in the | | | | PDT | | results section. | + +--------+ + + + | CBC, WITH | Urgent | 12/10/2006 | | Results for this | | DIFFERENTIAL | | 4:45 AM | | procedure are in the | | | | PDT | | results section. | + +--------+ + + + | BASIC METABOLIC SET | Urgent | 12/10/2006 | | Results for this | | (NA, K, CL, TCO2, | | 4:45 AM | | procedure are in the | | BUN, CR, GLU, CA) | | PDT | | results section. | + +--------+ + + + | INR | Urgent | 12/09/2006 | | Results for this | | | | 4:10 AM | | procedure are in the | | | | PDT | | results section. | + +--------+ + + + | BASIC METABOLIC SET | Urgent | 12/09/2006 | | Results for this | | (NA, K, CL, TCO2, | | 4:10 AM | | procedure are in the | | BUN, CR, GLU, CA) | | PDT | | results section. | + +--------+ + + + | CBC ONLY | Urgent | 12/09/2006 | | Results for this | | | | 4:10 AM | | procedure are in the | | | | PDT | | results section. | + +--------+ + + + | APTT (ACT. PART. | Urgent | 12/09/2006 | | Results for this | | THROMBO TIME) | | 4:10 AM | | procedure are in the | | | | PDT | | results section. | + +--------+ + + + | PHOSPHORUS, PLASMA | Urgent | 12/09/2006 | | Results for this | | | | 4:10 AM | | procedure are in the | | | | PDT | | results section. | + +--------+ + + + | MAGNESIUM, PLASMA | Urgent | 12/09/2006 | | Results for this | | | | 4:10 AM | | procedure are in the | | | | PDT | | results section. | + +--------+ + + + | BLOOD GASES, | Urgent | 12/08/2006 | | Results for this | | ARTERIAL - LAB | | 6:30 PM | | procedure are in the | | | | PDT | | results section. | + +--------+ + + + | HEMATOCRIT | Urgent | 12/08/2006 | | Results for this | | | | 11:30 AM | | procedure are in the | | | | PDT | | results section. | + +--------+ + + + | CALCIUM, IONIZED, | Urgent | 12/08/2006 | | Results for this | | WHOLE BLOOD | | 11:30 AM | | procedure are in the | | | | PDT | | results section. | + +--------+ + + + | INR | Urgent | 12/08/2006 | | Results for this | | | | 4:30 AM | | procedure are in the | | | | PDT | | results section. | + +--------+ + + + | BASIC METABOLIC SET | Urgent | 12/08/2006 | | Results for this | | (NA, K, CL, TCO2, | | 4:30 AM | | procedure are in the | | BUN, CR, GLU, CA) | | PDT | | results section. | + +--------+ + + + | CBC ONLY | Urgent | 12/08/2006 | | Results for this | | | | 4:30 AM | | procedure are in the | | | | PDT | | results section. | + +--------+ + + + | APTT (ACT. PART. | Urgent | 12/08/2006 | | Results for this | | THROMBO TIME) | | 4:30 AM | | procedure are in the | | | | PDT | | results section. | + +--------+ + + + | PHOSPHORUS, PLASMA | Urgent | 12/08/2006 | | Results for this | | | | 4:30 AM | | procedure are in the | | | | PDT | | results section. | + +--------+ + + + | MAGNESIUM, PLASMA | Urgent | 12/08/2006 | | Results for this | | | | 4:30 AM | | procedure are in the | | | | PDT | | results section. | + +--------+ + + + | CK, PLASMA | Urgent | 12/08/2006 | | Results for this | | | | 4:30 AM | | procedure are in the | | | | PDT | | results section. | + +--------+ + + + | BASIC METABOLIC SET | Urgent | 12/07/2006 | | Results for this | | (NA, K, CL, TCO2, | | 2:55 PM | | procedure are in the | | BUN, CR, GLU, CA) | | PDT | | results section. | + +--------+ + + + | CBC ONLY | Urgent | 12/07/2006 | | Results for this | | | | 2:55 PM | | procedure are in the | | | | PDT | | results section. | + +--------+ + + + | PHOSPHORUS, PLASMA | Urgent | 12/07/2006 | | Results for this | | | | 2:55 PM | | procedure are in the | | | | PDT | | results section. | + +--------+ + + + | MAGNESIUM, PLASMA | Urgent | 12/07/2006 | | Results for this | | | | 2:55 PM | | procedure are in the | | | | PDT | | results section. | + +--------+ + + + | CK, PLASMA | Urgent | 12/07/2006 | | Results for this | | | | 2:55 PM | | procedure are in the | | | | PDT | | results section. | + +--------+ + + + | BASIC METABOLIC SET | Urgent | 12/07/2006 | | Results for this | | (NA, K, CL, TCO2, | | 10:00 AM | | procedure are in the | | BUN, CR, GLU, CA) | | PDT | | results section. | + +--------+ + + + | PHOSPHORUS, PLASMA | Urgent | 12/07/2006 | | Results for this | | | | 10:00 AM | | procedure are in the | | | | PDT | | results section. | + +--------+ + + + | BLOOD GASES, | Urgent | 12/07/2006 | | Results for this | | ARTERIAL - LAB | | 10:00 AM | | procedure are in the | | | | PDT | | results section. | + +--------+ + + + | MAGNESIUM, PLASMA | Urgent | 12/07/2006 | | Results for this | | | | 10:00 AM | | procedure are in the | | | | PDT | | results section. | + +--------+ + + + | PHOSPHORUS, PLASMA | Urgent | 12/07/2006 | | Results for this | | | | 8:05 AM | | procedure are in the | | | | PDT | | results section. | + +--------+ + + + | MAGNESIUM, PLASMA | Urgent | 12/07/2006 | | Results for this | | | | 8:05 AM | | procedure are in the | | | | PDT | | results section. | + +--------+ + + + | 12 LEAD ECG | Routin | 12/07/2006 | | Results for this | | | e | 8:00 AM | | procedure are in the | | | | PDT | | results section. | + +--------+ + + + | INR | Urgent | 12/07/2006 | | Results for this | | | | 6:03 AM | | procedure are in the | | | | PDT | | results section. | + +--------+ + + + | TROPONIN I, PLASMA | Urgent | 12/07/2006 | | Results for this | | | | 6:03 AM | | procedure are in the | | | | PDT | | results section. | + +--------+ + + + | BASIC METABOLIC SET | Urgent | 12/07/2006 | | Results for this | | (NA, K, CL, TCO2, | | 6:03 AM | | procedure are in the | | BUN, CR, GLU, CA) | | PDT | | results section. | + +--------+ + + + | CBC ONLY | Urgent | 12/07/2006 | | Results for this | | | | 6:03 AM | | procedure are in the | | | | PDT | | results section. | + +--------+ + + + | APTT (ACT. PART. | Urgent | 12/07/2006 | | Results for this | | THROMBO TIME) | | 6:03 AM | | procedure are in the | | | | PDT | | results section. | + +--------+ + + + | ETHANOL (ALCOHOL), | Urgent | 12/07/2006 | | Results for this | | BLOOD | | 6:03 AM | | procedure are in the | | | | PDT | | results section. | + +--------+ + + + | CK, PLASMA | Urgent | 12/07/2006 | | Results for this | | | | 6:03 AM | | procedure are in the | | | | PDT | | results section. | + +--------+ + + + documented in this encounter Results AMMONIA (12/13/2006 8:02 AM PDT) + +--------+ + + + | Component | Value | Ref Range | Performed | Pathologist | | | | | At | Signature | + +--------+ + + + | AMMONIA | 39 (H) | 11 - 35 umol/L | [facility] | | | (LAB) | | | DEPARTMENT | | | | | | OF | | | | | | PATHOLOGY | | + +--------+ + + + + + | Specimen | + + | | + + + + + + + | Performing | Address | City/State/Zipcode | Phone Number | | Organization | | | | + + + + + | [facility] | [address] [place] [address] | [place] [address] | | | PATHOLOGY | [address] | | | + + + + + | [facility] | [address] [place] [address] | [place] [address] | | | PATHOLOGY | [address] | | | + + + + + CBC ONLY WITH PLATELET (12/12/2006 3:10 PM PDT) + + + + + + | Component | Value | Ref Range | Performed | Pathologist | | | | | At | Signature | + + + + + + | WHITE CELL | 3.5 (L) | 4.4 - 11.0 K/cu | [facility] | | | COUNT | | mm | DEPARTMENT | | | | | | OF | | | | | | PATHOLOGY | | + + + + + + | RED CELL | 2.43 (L) | 4.00 - 5.20 | [facility] | | | COUNT | | M/cu mm | DEPARTMENT | | | | | | OF | | | | | | PATHOLOGY | | + + + + + + | HEMOGLOBIN | 8.2 (L) | 12.0 - 16.0 | [facility] | | | | | g/dL | DEPARTMENT | | | | | | OF | | | | | | PATHOLOGY | | + + + + + + | HEMATOCRIT | 23.9 (L) | 36.0 - 46.0 % | [facility] | | | | | | DEPARTMENT | | | | | | OF | | | | | | PATHOLOGY | | + + + + + + | MCV | 98.3 (H) | 80.0 - 96.0 fL | [facility] | | | | | | DEPARTMENT | | | | | | OF | | | | | | PATHOLOGY | | + + + + + + | MCHC | 34.4 | 33.4 - 35.5 | [facility] | | | | | g/dL | DEPARTMENT | | | | | | OF | | | | | | PATHOLOGY | | + + + + + + | RDW | 13.8 | 11.5 - 15.0 % | [facility] | | | | | | DEPARTMENT | | | | | | OF | | | | | | PATHOLOGY | | + + + + + + | PLATELET | 338 | 150 - 400 K/cu | [facility] | | | COUNT | | mm | DEPARTMENT | | | | | [...] + | [facility] DEPARTMENT [facility] | [address] | [place] [address] | | | PATHOLOGY | [address] | | | + + + + + | [facility]MENT [facility] | [address] | [place] [address] | | | PATHOLOGY | [address] | | | + + + + + AMMONIA (12/12/2006 3:10 PM PDT) + +--------+ + + + | Component | Value | Ref Range | Performed | Pathologist | | | | | At | Signature | + +--------+ + + + | AMMONIA | 40 (H) | 11 - 35 umol/L | [facility] | | | (LAB) | | | DEPARTMENT | | | | | | OF | | | | | | PATHOLOGY | | + +--------+ + + + + + | Specimen | + + | | + + + + + + + | Performing | Address | City/State/Zipcode | Phone Number | | Organization | | | | + + + + + | [facility] DE[facility] | [address] | [place] [address] | | | PATHOLOGY | [address] | | | + + + + + | [facility] | [address] | [place] [address] | | | PATHOLOGY | [address] | | | + + + + + COMP METABOLIC SET (BASIC+ALB,ALKP,TBIL,AST,TPRO,ALT) (12/12/2006 3:10 PM PDT) + +---------+ + + + | Component | Value | Ref Range | Performed | Pathologist | | | | | At | Signature | + +---------+ + + + | GLUCOSE, | 135 (H) | 60 - 99 mg/dL | [facility] | | | PLASMA | | | DEPARTMENT | | | (LAB) | | | OF | | | | | | PATHOLOGY | | + +---------+ + + + | BUN, PLASMA | 7 | 6 - 20 mg/dL | [facility] | | | (LAB) | | | DEPARTMENT | | | | | | OF | | | | | | PATHOLOGY | | + +---------+ + + + | CREATININE | 0.6 | 0.6 - 1.1 mg/dL | [facility] | | | PLASMA | | | DEPARTMENT | | | (LAB) | | | OF | | | | | | PATHOLOGY | | + +---------+ + + + | TOTAL | 5.5 (L) | 6.1 - 7.9 g/dL | [facility] | | | PROTEIN, | | | DEPARTMENT | | | PLASMA | | | OF | | | (LAB) | | | PATHOLOGY | | + +---------+ + + + | ALBUMIN, | 2.3 (L) | 3.5 - 4.7 g/dL | [facility] | | | PLASMA | | | DEPARTMENT | | | (LAB) | | | OF | | | | | | PATHOLOGY | | + +---------+ + + + | CALCIUM, | 8.4 (L) | 8.5 - 10.5 | [facility] | | | PLASMA | | mg/dL | DEPARTMENT | | | (LAB) | | | OF | | | | | | PATHOLOGY | | + +---------+ + + + | BILIRUBIN | 0.7 | 0.3 - 1.2 mg/dL | [facility] | | | TOTAL | | | DEPARTMENT | | | | | | OF | | | | | | PATHOLOGY | | + +---------+ + + + | ALK PHOS | 49 | 42 - 98 U/L | [facility] | | | | | | DEPARTMENT | | | | | | OF | | | | | | PATHOLOGY | | + +---------+ + + + | AST(SGOT) | 34 | 15 - 41 U/L | [facility] | | | | | | DEPARTMENT | | | | | | OF | | | | | | PATHOLOGY | | + +---------+ + + + | SODIUM, | 138 | 136 - 145 | [facility] | | | PLASMA | | mmol/L | DEPARTMENT | | | (LAB) | | | OF | | | | | | PATHOLOGY | | + +---------+ + + + | POTASSIUM, | 3.6 | 3.5 - 5.1 | [facility] | | | PLASMA | | mmol/L | DEPARTMENT | | | (LAB) | | | OF | | | | | | PATHOLOGY | | + +---------+ + + + | CHLORIDE, | 104 | 98 - 107 mmol/L | [facility] | | | PLASMA | | | DEPARTMENT | | | (LAB) | | | OF | | | | | | PATHOLOGY | | + +---------+ + + + | TOTAL CO2, | 26 | 23 - 29 mmol/L | [facility] | | | PLASMA | | | DEPARTMENT | | | (LAB) | | | OF | | | | | | PATHOLOGY | | + +---------+ + + + | ALT (SGPT) | 23 | 13 - 48 U/L | [facility] | | | | | | DEPARTMENT | | | | | | OF | | | | | | PATHOLOGY | | + +---------+ + + + + + | Specimen | + + | | + + + + + + + | Performing | Address | City/State/Zipcode | Phone Number | | Organization | | | | + + + + + | [facility] DE[facility]MENT [facility] | [address] | [place] [address] | | | PATHOLOGY | [address] | | | + + + + + | [facility] | [address] | [place] [address] | | | PATHOLOGY | [address] | | | + + + + + BASIC METABOLIC SET (NA,K,CL,BUN,CR,GLU,CO2,CA) (12/11/2006 12:42 PM PDT) + +---------+ + + + | Component | Value | Ref Range | Performed | Pathologist | | | | | At | Signature | + +---------+ + + + | GLUCOSE, | 174 (H) | 60 - 99 mg/dL | [facility] | | | PLASMA | | | DEPARTMENT | | | (LAB) | | | OF | | | | | | PATHOLOGY | | + +---------+ + + + | BUN, PLASMA | 5 (L) | 6 - 20 mg/dL | [facility] | | | (LAB) | | | DEPARTMENT | | | | | | OF | | | | | | PATHOLOGY | | + +---------+ + + + | CREATININE | 0.6 | 0.6 - 1.1 mg/dL | [facility] | | | PLASMA | | | DEPARTMENT | | | (LAB) | | | OF | | | | | | PATHOLOGY | | + +---------+ + + + | SODIUM, | 132 (L) | 136 - 145 | [facility] | | | PLASMA | | mmol/L | DEPARTMENT | | | (LAB) | | | OF | | | | | | PATHOLOGY | | + +---------+ + + + | POTASSIUM, | 3.3 (L) | 3.5 - 5.1 | [facility] | | | PLASMA | | mmol/L | DEPARTMENT | | | (LAB) | | | OF | | | | | | PATHOLOGY | | + +---------+ + + + | CHLORIDE, | 99 | 98 - 107 mmol/L | [facility] | | | PLASMA | | | DEPARTMENT | | | (LAB) | | | OF | | | | | | PATHOLOGY | | + +---------+ + + + | TOTAL CO2, | 24 | 23 - 29 mmol/L | [facility] | | | PLASMA | | | DEPARTMENT | | | (LAB) | | | OF | | | | | | PATHOLOGY | | + +---------+ + + + | CALCIUM, | 8.0 (L) | 8.5 - 10.5 | [facility] | | | PLASMA | | mg/dL | DEPARTMENT | | | (LAB) | | | OF | | | | | | PATHOLOGY | | + +---------+ + + + + + | Specimen | + + | | + + + + + + + | Performing | Address | City/State/Zipcode | Phone Number | | Organization | | | | + + + + + | [facility] DE[facility]MENT [facility] | [address] | [place] [address] | | | PATHOLOGY | [address] | | | + + + + + | [facility]MENT [facility] | [address] | [place] [address] | | | PATHOLOGY | [address] | | | + + + + + CBC ONLY WITH PLATELET (12/11/2006 12:42 PM PDT) + + + + + + | Component | Value | Ref Range | Performed | Pathologist | | | | | At | Signature | + + + + + + | WHITE CELL | 5.0 | 4.4 - 11.0 K/cu | [facility] | | | COUNT | | mm | DEPARTMENT | | | | | | OF | | | | | | PATHOLOGY | | + + + + + + | RED CELL | 2.40 (L) | 4.00 - 5.20 | [facility] | | | COUNT | | M/cu mm | DEPARTMENT | | | | | | OF | | | | | | PATHOLOGY | | + + + + + + | HEMOGLOBIN | 8.1 (L) | 12.0 - 16.0 | [facility] | | | | | g/dL | DEPARTMENT | | | | | | OF | | | | | | PATHOLOGY | | + + + + + + | HEMATOCRIT | 22.9 (L) | 36.0 - 46.0 % | [facility] | | | | | | DEPARTMENT | | | | | | OF | | | | | | PATHOLOGY | | + + + + + + | MCV | 95.6 | 80.0 - 96.0 fL | [facility] | | | | | | DEPARTMENT | | | | | | OF | | | | | | PATHOLOGY | | + + + + + + | MCHC | 35.4 | 33.4 - 35.5 | [facility] | | | | | g/dL | DEPARTMENT | | | | | | OF | | | | | | PATHOLOGY | | + + + + + + | RDW | 13.6 | 11.5 - 15.0 % | [facility] | | | | | | DEPARTMENT | | | | | | OF | | | | | | PATHOLOGY | | + + + + + + | PLATELET | 279 | 150 - 400 K/cu | [facility] | | | COUNT | | mm | DEPARTMENT | | | | | | OF | | | | | | PATHOLOGY | | + + + + + + + + | Specimen | + + | | + + + + + + + | Performing | Address | City/State/Zipcode | Phone Number | | Organization | | | | + + + + + | [facility] | [address] | [place] [address] | | | PATHOLOGY | [address] | | | + + + + + | [facility] | [address] | [place] [address] | | | PATHOLOGY | [address] | | | + + + + + PHOSPHORUS, PLASMA (12/11/2006 8:50 AM PDT) + +-------+ + + + | Component | Value | Ref Range | Performed | Pathologist | | | | | At | Signature | + +-------+ + + + | PHOSPHORUS, | 3.1 | 2.4 - 4.7 mg/dL | [facility] | | | PLASMA | | | DEPARTMENT | | | (LAB) | | | OF | | | | | | PATHOLOGY | | + +-------+ + + + + + | Specimen | + + | | + + + + + + + | Performing | Address | City/State/Zipcode | Phone Number | | Organization | | | | + + + + + | [facility] DE[facility]MENT [facility] | [address] | [place] [address] | | | PATHOLOGY | [address] | | | + + + + + | [facility] | [address] | [place] [address] | | | PATHOLOGY | [address] | | | + + + + + MAGNESIUM, PLASMA (12/11/2006 8:50 AM PDT) + +---------+ + + + | Component | Value | Ref Range | Performed | Pathologist | | | | | At | Signature | + +---------+ + + + | MAGNESIUM,P | 1.7 (L) | 1.8 - 2.5 mg/dL | [facility] | | | LASMA | | | DEPARTMENT | | | | | | OF | | | | | | PATHOLOGY | | + +---------+ + + + + + | Specimen | + + | | + + + + + + + | Performing | Address | City/State/Zipcode | Phone Number | | Organization | | | | + + + + + | [facility] | [address] | [place] [address] | | | PATHOLOGY | [address] | | | + + + + + | [facility] | [address] | [place] [address] | | | PATHOLOGY | [address] | | | + + + + + CBC ONLY WITH PLATELET (12/11/2006 8:50 AM PDT) + + + + + + | Component | Value | Ref Range | Performed | Pathologist | | | | | At | Signature | + + + + + + | WHITE CELL | 3.5 (L) | 4.4 - 11.0 K/cu | [facility] | | | COUNT | | mm | DEPARTMENT | | | | | | OF | | | | | | PATHOLOGY | | + + + + + + | RED CELL | 2.42 (L) | 4.00 - 5.20 | [facility] | | | COUNT | | M/cu mm | DEPARTMENT | | | | | | OF | | | | | | PATHOLOGY | | + + + + + + | HEMOGLOBIN | 8.1 (L) | 12.0 - 16.0 | [facility] | | | | | g/dL | DEPARTMENT | | | | | | OF | | | | | | PATHOLOGY | | + + + + + + | HEMATOCRIT | 23.1 (L) | 36.0 - 46.0 % | [facility] | | | | | | DEPARTMENT | | | | | | OF | | | | | | PATHOLOGY | | + + + + + + | MCV | 95.6 | 80.0 - 96.0 fL | [facility] | | | | | | DEPARTMENT | | | | | | OF | | | | | | PATHOLOGY | | + + + + + + | MCHC | 35.2 | 33.4 - 35.5 | [facility] | | | | | g/dL | DEPARTMENT | | | | | | OF | | | | | | PATHOLOGY | | + + + + + + | RDW | 13.7 | 11.5 - 15.0 % | [facility] | | | | | | DEPARTMENT | | | | | | OF | | | | | | PATHOLOGY | | + + + + + + | PLATELET | 259 | 150 - 400 K/cu | [facility] | | | COUNT | | mm | DEPARTMENT | | | | | | OF | | | | | | PATHOLOGY | | + + + + + + + + | Specimen | + + | | + + + + + + + | Performing | Address | City/State/Zipcode | Phone Number | | Organization | | | | + + + + + | [facility] | [address] | [place] [address] | | | PATHOLOGY | [address] | | | + + + + + | [facility] | [address] | [place] [address] | | | PATHOLOGY | [address] | | | + + + + + BASIC METABOLIC SET (NA,K,CL,BUN,CR,GLU,CO2,CA) (12/11/2006 8:50 AM PDT) + +---------+ + + + | Component | Value | Ref Range | Performed | Pathologist | | | | | At | Signature | + +---------+ + + + | GLUCOSE, | 141 (H) | 60 - 99 mg/dL | [facility] | | | PLASMA | | | DEPARTMENT | | | (LAB) | | | OF | | | | | | PATHOLOGY | | + +---------+ + + + | BUN, PLASMA | 6 | 6 - 20 mg/dL | [facility] | | | (LAB) | | | DEPARTMENT | | | | | | OF | | | | | | PATHOLOGY | | + +---------+ + + + | CREATININE | 0.7 | 0.6 - 1.1 mg/dL | [facility] | | | PLASMA | | | DEPARTMENT | | | (LAB) | | | OF | | | | | | PATHOLOGY | | + +---------+ + + + | SODIUM, | 134 (L) | 136 - 145 | [facility] | | | PLASMA | | mmol/L | DEPARTMENT | | | (LAB) | | | OF | | | | | | PATHOLOGY | | + +---------+ + + + | POTASSIUM, | 3.6 | 3.5 - 5.1 | [facility] | | | PLASMA | | mmol/L | DEPARTMENT | | | (LAB) | | | OF | | | | | | PATHOLOGY | | + +---------+ + + + | CHLORIDE, | 103 | 98 - 107 mmol/L | [facility] | | | PLASMA | | | DEPARTMENT | | | (LAB) | | | OF | | | | | | PATHOLOGY | | + +---------+ + + + | TOTAL CO2, | 23 | 23 - 29 mmol/L | [facility] | | | PLASMA | | | DEPARTMENT | | | (LAB) | | | OF | | | | | | PATHOLOGY | | + +---------+ + + + | CALCIUM, | 8.0 (L) | 8.5 - 10.5 | [facility] | | | PLASMA | | mg/dL | DEPARTMENT | | | (LAB) | | | OF | | | | | | PATHOLOGY | | + +---------+ + + + + + | Specimen | + + | | + + + + + + + | Performing | Address | City/State/Zipcode | Phone Number | | Organization | | | | + + + + + | [facility] DEPARTMENT OF | [facility] | [place] [address] | | | PATHOLOGY | [address] | | | + + + + + | [facility] DEPARTMENT OF | [facility] | [place] [address] | | | PATHOLOGY | [address] | | | + + + + + LIVER SET (ALB,ALP,T-DBIL,AST,ALT,TPR) (12/11/2006 12:01 AM PDT) + +---------+ + + + | Component | Value | Ref Range | Performed | Pathologist | | | | | At | Signature | + +---------+ + + + | ALBUMIN, | 2.2 (L) | 3.5 - 4.7 g/dL | [facility] | | | PLASMA | | | DEPARTMENT | | | (LAB) | | | OF | | | | | | PATHOLOGY | | + +---------+ + + + | BILIRUBIN | 1.4 (H) | 0.3 - 1.2 mg/dL | [facility] | | | TOTAL | | | DEPARTMENT | | | | | | OF | | | | | | PATHOLOGY | | + +---------+ + + + | BILIRUBIN | 0.2 | <0.4 mg/dL | [facility] | | | DIRECT | | | DEPARTMENT | | | | | | OF | | | | | | PATHOLOGY | | + +---------+ + + + | ALK PHOS | 52 | 42 - 98 U/L | [facility] | | | | | | DEPARTMENT | | | | | | OF | | | | | | PATHOLOGY | | + +---------+ + + + | AST(SGOT) | 43 (H) | 15 - 41 U/L | [facility] | | | | | | DEPARTMENT | | | | | | OF | | | | | | PATHOLOGY | | + +---------+ + + + | ALT (SGPT) | 26 | 13 - 48 U/L | [facility] | | | | | | DEPARTMENT | | | | | | OF | | | | | | PATHOLOGY | | + +---------+ + + + | TOTAL | 5.3 (L) | 6.1 - 7.9 g/dL | [facility] | | | PROTEIN, | | | DEPARTMENT | | | PLASMA | | | OF | | | (LAB) | | | PATHOLOGY | | + +---------+ + + + + + | Specimen | + + | | + + + + + + + | Performing | Address | City/State/Zipcode | Phone Number | | Organization | | | | + + + + + | [facility] | [address] | [place] [address] | | | PATHOLOGY | [address] | | | + + + + + | [facility] | [address] | [place] [address] | | | PATHOLOGY | [address] | | | + + + + + BASIC METABOLIC SET (NA,K,CL,BUN,CR,GLU,CO2,CA) (12/10/2006 5:05 AM PDT) + +---------+ + + + | Component | Value | Ref Range | Performed | Pathologist | | | | | At | Signature | + +---------+ + + + | GLUCOSE, | 104 (H) | 60 - 99 mg/dL | [facility] | | | PLASMA | | | DEPARTMENT | | | (LAB) | | | OF | | | | | | PATHOLOGY | | + +---------+ + + + | BUN, PLASMA | 3 (L) | 6 - 20 mg/dL | [facility] | | | (LAB) | | | DEPARTMENT | | | | | | OF | | | | | | PATHOLOGY | | + +---------+ + + + | CREATININE | 0.7 | 0.6 - 1.1 mg/dL | [facility] | | | PLASMA | | | DEPARTMENT | | | (LAB) | | | OF | | | | | | PATHOLOGY | | + +---------+ + + + | SODIUM, | 136 | 136 - 145 | [facility] | | | PLASMA | | mmol/L | DEPARTMENT | | | (LAB) | | | OF | | | | | | PATHOLOGY | | + +---------+ + + + | POTASSIUM, | 3.8 | 3.5 - 5.1 | [facility] | | | PLASMA | | mmol/L | DEPARTMENT | | | (LAB) | | | OF | | | | | | PATHOLOGY | | + +---------+ + + + | CHLORIDE, | 102 | 98 - 107 mmol/L | [facility] | | | PLASMA | | | DEPARTMENT | | | (LAB) | | | OF | | | | | | PATHOLOGY | | + +---------+ + + + | TOTAL CO2, | 26 | 23 - 29 mmol/L | [facility] | | | PLASMA | | | DEPARTMENT | | | (LAB) | | | OF | | | | | | PATHOLOGY | | + +---------+ + + + | CALCIUM, | 8.0 (L) | 8.5 - 10.5 | [facility] | | | PLASMA | | mg/dL | DEPARTMENT | | | (LAB) | | | OF | | | | | | PATHOLOGY | | + +---------+ + + + + + | Specimen | + + | | + + + + + + + | Performing | Address | City/State/Zipcode | Phone Number | | Organization | | | | + + + + + | [facility] DE[facility]MENT [facility] | [address] | [place] [address] | | | PATHOLOGY | [address] | | | + + + + + | [facility] | [address] | [place] [address] | | | PATHOLOGY | [address] | | | + + + + + CBC, WITH DIFFERENTIAL (12/10/2006 5:05 AM PDT) + + + + + + | Component | Value | Ref Range | Performed | Pathologist | | | | | At | Signature | + + + + + + | WHITE CELL | 5.1 | 4.4 - 11.0 K/cu | [facility] | | | COUNT | | mm | DEPARTMENT | | | | | | OF | | | | | | PATHOLOGY | | + + + + + + | RED CELL | 2.68 (L) | 4.00 - 5.20 | [facility] | | | COUNT | | M/cu mm | DEPARTMENT | | | | | | OF | | | | | | PATHOLOGY | | + + + + + + | HEMOGLOBIN | 9.1 (L) | 12.0 - 16.0 | [facility] | | | | | g/dL | DEPARTMENT | | | | | | OF | | | | | | PATHOLOGY | | + + + + + + | HEMATOCRIT | 25.7 (L) | 36.0 - 46.0 % | [facility] | | | | | | DEPARTMENT | | | | | | OF | | | | | | PATHOLOGY | | + + + + + + | MCV | 95.7 | 80.0 - 96.0 fL | [facility] | | | | | | DEPARTMENT | | | | | | OF | | | | | | PATHOLOGY | | + + + + + + | MCHC | 35.5 | 33.4 - 35.5 | [facility] | | | | | g/dL | DEPARTMENT | | | | | | OF | | | | | | PATHOLOGY | | + + + + + + | RDW | 13.4 | 11.5 - 15.0 % | [facility] | | | | | | DEPARTMENT | | | | | | OF | | | | | | PATHOLOGY | | + + + + + + | PLATELET | 235 | 150 - 400 K/cu | [facility] | | | COUNT | | mm | DEPARTMENT | | | | | [...] + | [facility] DEPARTMENT OF | [address] | [place] [address] | | | PATHOLOGY | [address] | | | + + + + + | [facility] DE[facility]MENT [facility] | [address] | [place] [address] | | | PATHOLOGY | [address] | | | + + + + + DIFFERENTIAL (12/10/2006 5:05 AM PDT) + +---------+ + + + | Component | Value | Ref Range | Performed | Pathologist | | | | | At | Signature | + +---------+ + + + | NEUTROPHIL | 78 (H) | 50 - 70 % | [facility] | | | % | | | DEPARTMENT | | | | | | OF | | | | | | PATHOLOGY | | + +---------+ + + + | LYMPHOCYTE | 11 (L) | 18 - 42 % | [facility] | | | % | | | DEPARTMENT | | | | | | OF | | | | | | PATHOLOGY | | + +---------+ + + + | MONOCYTE % | 10 (H) | 2 - 8 % | [facility] | | | | | | DEPARTMENT | | | | | | OF | | | | | | PATHOLOGY | | + +---------+ + + + | EOS % | 1 | 1 - 3 % | [facility] | | | | | | DEPARTMENT | | | | | | OF | | | | | | PATHOLOGY | | + +---------+ + + + | BASO % | 0 | <3 % | [facility] | | | | | | DEPARTMENT | | | | | | OF | | | | | | PATHOLOGY | | + +---------+ + + + | NEUTROPHIL | 4.0 | 1.8 - 7.7 K/cu | [facility] | | | # | | mm | DEPARTMENT | | | | | | OF | | | | | | PATHOLOGY | | + +---------+ + + + | LYMPHOCYTE | 0.6 (L) | 1.0 - 4.8 K/cu | [facility] | | | # | | mm | DEPARTMENT | | | | | | OF | | | | | | PATHOLOGY | | + +---------+ + + + | MONOCYTE # | 0.5 | <0.9 K/cu mm | [facility] | | | | | | DEPARTMENT | | | | | | OF | | | | | | PATHOLOGY | | + +---------+ + + + | EOS # | 0.1 | <0.6 K/cu mm | [facility] | | | | | | DEPARTMENT | | | | | | OF | | | | | | PATHOLOGY | | + +---------+ + + + | BASO # | 0.0 | <0.3 | [facility] | | | | | | DEPARTMENT | | | | | | OF | | | | | | PATHOLOGY | | + +---------+ + + + + + | Specimen | + + | | + + + + + + + | Performing | Address | City/State/Zipcode | Phone Number | | Organization | | | | + + + + + | [facility] | [address] | [place] [address] | | | PATHOLOGY | [address] | | | + + + + + | [facility] | [address] | [place] [address] | | | PATHOLOGY | [address] | | | + + + + + BASIC METABOLIC SET (NA,K,CL,BUN,CR,GLU,CO2,CA) (12/10/2006 4:45 AM PDT) + + + + + + | Component | Value | Ref Range | Performed | Pathologist | | | | | At | Signature | + + + + + + | GLUCOSE, | Un/mislbl | 60 - 99 mg/dL | [facility] | | | PLASMA | | | DEPARTMENT | | | (LAB) | | | OF | | | | | | PATHOLOGY | | + + + + + + | BUN, PLASMA | Un/mislbl | 6 - 20 mg/dL | [facility] | | | (LAB) | | | DEPARTMENT | | | | | | OF | | | | | | PATHOLOGY | | + + + + + + | CREATININE | Un/mislbl | 0.6 - 1.1 mg/dL | [facility] | | | PLASMA | | | DEPARTMENT | | | (LAB) | | | OF | | | | | | PATHOLOGY | | + + + + + + | SODIUM, | Un/mislbl | 136 - 145 | [facility] | | | PLASMA | | mmol/L | DEPARTMENT | | | (LAB) | | | OF | | | | | | PATHOLOGY | | + + + + + + | POTASSIUM, | Un/mislbl | 3.5 - 5.1 | [facility] | | | PLASMA | | mmol/L | DEPARTMENT | | | (LAB) | | | OF | | | | | | PATHOLOGY | | + + + + + + | CHLORIDE, | Un/mislbl | 98 - 107 mmol/L | [facility] | | | PLASMA | | | DEPARTMENT | | | (LAB) | | | OF | | | | | | PATHOLOGY | | + + + + + + | TOTAL CO2, | Un/mislbl | 23 - 29 mmol/L | [facility] | | | PLASMA | | | DEPARTMENT | | | (LAB) | | | OF | | | | | | PATHOLOGY | | + + + + + + | CALCIUM, | Un/mislbl | 8.5 - 10.5 | [facility] | | | PLASMA | | mg/dL | DEPARTMENT | | | (LAB) | | | OF | | | | | | PATHOLOGY | | + + + + + + | POTASSIUM | Un/mislbl | | [facility] | | | CMNT | | | DEPARTMENT | | | [...] + | [facility] DEPARTMENT OF | [address] | [place] [address] | | | PATHOLOGY | [address] | | | + + + + + | [facility] DEPARTMENT OF | [address] | [place] [address] | | | PATHOLOGY | [address] | | | + + + + + CBC, WITH DIFFERENTIAL (12/10/2006 4:45 AM PDT) + + + + + + | Component | Value | Ref Range | Performed | Pathologist | | | | | At | Signature | + + + + + + | WHITE CELL | Un/mislbl | 4.4 - 11.0 K/cu | [facility] | | | COUNT | | mm | DEPARTMENT | | | | | | OF | | | | | | PATHOLOGY | | + + + + + + | RED CELL | Un/mislbl | 4.00 - 5.20 | [facility] | | | COUNT | | M/cu mm | DEPARTMENT | | | | | | OF | | | | | | PATHOLOGY | | + + + + + + | HEMOGLOBIN | Un/mislbl | 12.0 - 16.0 | [facility] | | | | | g/dL | DEPARTMENT | | | | | | OF | | | | | | PATHOLOGY | | + + + + + + | HEMATOCRIT | Un/mislbl | 36.0 - 46.0 % | [facility] | | | | | | DEPARTMENT | | | | | | OF | | | | | | PATHOLOGY | | + + + + + + | MCV | Un/mislbl | 80.0 - 96.0 fL | [facility] | | | | | | DEPARTMENT | | | | | | OF | | | | | | PATHOLOGY | | + + + + + + | MCHC | Un/mislbl | 33.4 - 35.5 | [facility] | | | | | g/dL | DEPARTMENT | | | | | | OF | | | | | | PATHOLOGY | | + + + + + + | RDW | Un/mislbl | 11.5 - 15.0 % | [facility] | | | | | | DEPARTMENT | | | | | | OF | | | | | | PATHOLOGY | | + + + + + + | PLATELET | Un/mislbl | 150 - 400 K/cu | [facility] | | | COUNT | | mm | DEPARTMENT | | | | | [...] + | [facility] DEPARTMENT OF | [address] | [place] [address] | | | PATHOLOGY | [address] | | | + + + + + | [facility] DEPARTMENT OF | [address] | [place] [address] | | | PATHOLOGY | [address] | | | + + + + + DIFFERENTIAL (12/10/2006 4:45 AM PDT) + + + + + + | Component | Value | Ref Range | Performed | Pathologist | | | | | At | Signature | + + + + + + | NEUTROPHIL | Un/mislbl | 50 - 70 % | [facility] | | | % | | | DEPARTMENT | | | | | | OF | | | | | | PATHOLOGY | | + + + + + + | LYMPHOCYTE | Un/mislbl | 18 - 42 % | [facility] | | | % | | | DEPARTMENT | | | | | | OF | | | | | | PATHOLOGY | | + + + + + + | MONOCYTE % | Un/mislbl | 2 - 8 % | [facility] | | | | | | DEPARTMENT | | | | | | OF | | | | | | PATHOLOGY | | + + + + + + | EOS % | Un/mislbl | 1 - 3 % | [facility] | | | | | | DEPARTMENT | | | | | | OF | | | | | | PATHOLOGY | | + + + + + + | BASO % | Un/mislbl | <3 % | [facility] | | | | | [...] | + + + + + | [facility] DEPARTMENT OF | [address] | [place] [address] | | | PATHOLOGY | [address] | | | + + + + + | [facility] | [address] | [place] [address] | | | PATHOLOGY | [address] | | | + + + + + MAGNESIUM, PLASMA (12/09/2006 4:10 AM PDT) + +-------+ + + + | Component | Value | Ref Range | Performed | Pathologist | | | | | At | Signature | + +-------+ + + + | MAGNESIUM,P | 2.2 | 1.8 - 2.5 mg/dL | [facility] | | | LASMA | | | DEPARTMENT | | | | | | OF | | | | | | PATHOLOGY | | + +-------+ + + + + + | Specimen | + + | | + + + + + + + | Performing | Address | City/State/Zipcode | Phone Number | | Organization | | | | + + + + + | [facility] DEPARTMENT OF | [address] | [place] [address] | | | PATHOLOGY | [address] | | | + + + + + | [facility] DEPARTMENT OF | [address] | [place] [address] | | | PATHOLOGY | [address] | | | + + + + + PHOSPHORUS, PLASMA (12/09/2006 4:10 AM PDT) + +-------+ + + + | Component | Value | Ref Range | Performed | Pathologist | | | | | At | Signature | + +-------+ + + + | PHOSPHORUS, | 2.4 | 2.4 - 4.7 mg/dL | [facility] | | | PLASMA | | | DEPARTMENT | | | (LAB) | | | OF | | | | | | PATHOLOGY | | + +-------+ + + + + + | Specimen | + + | | + + + + + + + | Performing | Address | City/State/Zipcode | Phone Number | | Organization | | | | + + + + + | [facility] | [address] | [place] [address] | | | PATHOLOGY | [address] | | | + + + + + | [facility] | [facility] | [place] [address] | | | PATHOLOGY | [address] | | | + + + + + BASIC METABOLIC SET (NA,K,CL,BUN,CR,GLU,CO2,CA) (12/09/2006 4:10 AM PDT) + +---------+ + + + | Component | Value | Ref Range | Performed | Pathologist | | | | | At | Signature | + +---------+ + + + | GLUCOSE, | 98 | 60 - 99 mg/dL | [facility] | | | PLASMA | | | DEPARTMENT | | | (LAB) | | | OF | | | | | | PATHOLOGY | | + +---------+ + + + | BUN, PLASMA | 2 (L) | 6 - 20 mg/dL | [facility] | | | (LAB) | | | DEPARTMENT | | | | | | OF | | | | | | PATHOLOGY | | + +---------+ + + + | CREATININE | 0.5 (L) | 0.6 - 1.1 mg/dL | [facility] | | | PLASMA | | | DEPARTMENT | | | (LAB) | | | OF | | | | | | PATHOLOGY | | + +---------+ + + + | SODIUM, | 139 | 136 - 145 | [facility] | | | PLASMA | | mmol/L | DEPARTMENT | | | (LAB) | | | OF | | | | | | PATHOLOGY | | + +---------+ + + + | POTASSIUM, | 4.9 | 3.5 - 5.1 | [facility] | | | PLASMA | | mmol/L | DEPARTMENT | | | (LAB) | | | OF | | | | | | PATHOLOGY | | + +---------+ + + + | CHLORIDE, | 112 (H) | 98 - 107 mmol/L | [facility] | | | PLASMA | | | DEPARTMENT | | | (LAB) | | | OF | | | | | | PATHOLOGY | | + +---------+ + + + | TOTAL CO2, | 27 | 23 - 29 mmol/L | [facility] | | | PLASMA | | | DEPARTMENT | | | (LAB) | | | OF | | | | | | PATHOLOGY | | + +---------+ + + + | CALCIUM, | 7.1 (L) | 8.5 - 10.5 | [facility] | | | PLASMA | | mg/dL | DEPARTMENT | | | (LAB) | | | OF | | | | | | PATHOLOGY | | + +---------+ + + + + + | Specimen | + + | | + + + + + + + | Performing | Address | City/State/Zipcode | Phone Number | | Organization | | | | + + + + + | [facility] DEPARTMENT OF | [address] | [place] [address] | | | PATHOLOGY | [address] | | | + + + + + | [facility] DEPARTMENT OF | [address] [place] [address] | [place] [address] | | | PATHOLOGY | [address] | | | + + + + + PROTHROMBIN TIME (12/09/2006 4:10 AM PDT) + + + + + + | Component | Value | Ref Range | Performed | Pathologist | | | | | At | Signature | + + + + + + | INR | 1.15Comment: | 0.90 - 1.20 INR | [facility] | | | | PT INR Therapeutic | | DEPARTMENT | | | | ranges for full | | OF | | | | anticoagulation: | | PATHOLOGY | | | | INR for | | | | | | Venous Thromboembolism | | | | | | | | | | | | (2.0-3.0)INR | | | | | | INR for most | | | | | | patients with mech. | | | | | | valves (2.5-3.5)INR | | | | + + + + + + + + | Specimen | + + | | + + + + + + + | Performing | Address | City/State/Zipcode | Phone Number | | Organization | | | | + + + + + | [facility] DEPARTMENT | [address] | [place] [address] | | | PATHOLOGY | [address] | | | + + + + + | [facility] | [address] | [place] [address] | | | PATHOLOGY | [address] | | | + + + + + CBC ONLY WITH PLATELET (12/09/2006 4:10 AM PDT) + + + + + + | Component | Value | Ref Range | Performed | Pathologist | | | | | At | Signature | + + + + + + | WHITE CELL | 3.7 (L) | 4.4 - 11.0 K/cu | [facility] | | | COUNT | | mm | DEPARTMENT | | | | | | OF | | | | | | PATHOLOGY | | + + + + + + | RED CELL | 2.32 (L) | 4.00 - 5.20 | [facility] | | | COUNT | | M/cu mm | DEPARTMENT | | | | | | OF | | | | | | PATHOLOGY | | + + + + + + | HEMOGLOBIN | 7.8 (L) | 12.0 - 16.0 | [facility] | | | | | g/dL | DEPARTMENT | | | | | | OF | | | | | | PATHOLOGY | | + + + + + + | HEMATOCRIT | 22.4 (L) | 36.0 - 46.0 % | [facility] | | | | | | DEPARTMENT | | | | | | OF | | | | | | PATHOLOGY | | + + + + + + | MCV | 96.5 (H) | 80.0 - 96.0 fL | [facility] | | | | | | DEPARTMENT | | | | | | OF | | | | | | PATHOLOGY | | + + + + + + | MCHC | 34.8 | 33.4 - 35.5 | [facility] | | | | | g/dL | DEPARTMENT | | | | | | OF | | | | | | PATHOLOGY | | + + + + + + | RDW | 14.3 | 11.5 - 15.0 % | [facility] | | | | | | DEPARTMENT | | | | | | OF | | | | | | PATHOLOGY | | + + + + + + | PLATELET | 152 | 150 - 400 K/cu | [facility] | | | COUNT | | mm | DEPARTMENT | | | | | | OF | | | | | | PATHOLOGY | | + + + + + + + + | Specimen | + + | | + + + + + + + | Performing | Address | City/State/Zipcode | Phone Number | | Organization | | | | + + + + + | [facility] DEPARTMENT | [address] | [place] [address] | | | PATHOLOGY | [address] | | | + + + + + | [facility] | [facility] | [place] [address] | | | PATHOLOGY | [address] | | | + + + + + APTT (ACT. PART. THROMBO TIME) (12/09/2006 4:10 AM PDT) + + + + + + | Component | Value | Ref Range | Performed | Pathologist | | | | | At | Signature | + + + + + + | APTT | 26.9Comment: | 26.0 - 36.0 | [facility] | | | | APTT Therapeutic Range | seconds | DEPARTMENT | | | | | | OF | | | | | | PATHOLOGY | | | | (75-120)sec | | | | | | Heparin levels | | | | | | of 0.35-0.7 U/mL | | | | + + + + + + + + | Specimen | + + | | + + + + + + + | Performing | Address | City/State/Zipcode | Phone Number | | Organization | | | | + + + + + | [facility] | [address] | [place] [address] | | | PATHOLOGY | [address] | | | + + + + + | [facility] DEPARTMENT OF | [address] | [place] [address] | | | PATHOLOGY | [address] | | | + + + + + BLOOD GASES, ARTERIAL (12/08/2006 6:30 PM PDT) + + + + + + | Component | Value | Ref Range | Performed | Pathologist | | | | | At | Signature | + + + + + + | PAT TEMP | 37.4 | Degree C | [facility] | | | ARTERIAL | | | DEPARTMENT | | | | | | OF | | | | | | PATHOLOGY | | + + + + + + | FIO2 | 0.35 | | [facility] | | | ARTERIAL | | | DEPARTMENT | | | | | | OF | | | | | | PATHOLOGY | | + + + + + + | PH ARTERIAL | 7.37 | 7.37 - 7.44 | [facility] | | | | | | DEPARTMENT | | | | | | OF | | | | | | PATHOLOGY | | + + + + + + | PCO2 | 48 (H) | 32 - 43 mmHg | [facility] | | | ARTERIAL | | | DEPARTMENT | | | | | | OF | | | | | | PATHOLOGY | | + + + + + + | PO2 | 109 (H) | 72 - 104 mmHg | [facility] | | | ARTERIAL | | | DEPARTMENT | | | | | | OF | | | | | | PATHOLOGY | | + + + + + + | BASE EXCESS | 2.0 | | [facility] | | | ARTERIAL | | | DEPARTMENT | | | | | | OF | | | | | | PATHOLOGY | | + + + + + + | HCO3 | 27 | 21 - 27 mmol/L | [facility] | | | ARTERIAL | | | DEPARTMENT | | | | | | OF | | | | | | PATHOLOGY | | + + + + + + | TOTAL CO2 | 29 (H) | 22 - 28 mmol/L | [facility] | | | ARTERIAL | | | DEPARTMENT | | | | | | OF | | | | | | PATHOLOGY | | + + + + + + | O2 SAT, | 98.5 (H) | 92.0 - 98.0 % | [facility] | | | ARTERIAL | | | DEPARTMENT | | | | | | OF | | | | | | PATHOLOGY | | + + + + + + + + | Specimen | + + | | + + + + + | Narrative | Performed At | + + + | Arterial Blood Gas | [facility] | | | DEPARTMENT OF | | | PATHOLOGY | + + + + + + + + | Performing | Address | City/State/Zipcode | Phone Number | | Organization | | | | + + + + + | [facility] | [facility] [facility] [address] [address] | [place] [address] | | | PATHOLOGY | [address] | | | + + + + + | [facility] | [address] | [place] [address] | | | PATHOLOGY | [address] | | | + + + + + HEMATOCRIT (12/08/2006 11:30 AM PDT) + + + + + + | Component | Value | Ref Range | Performed | Pathologist | | | | | At | Signature | + + + + + + | HEMATOCRIT | 24.5 (L) | 36.0 - 46.0 % | [facility] | | | | | [...] | + + + + + | [facility] | [address] | [place] [address] | | | PATHOLOGY | [address] | | | + + + + + | [facility] | [address] | [place] [address] | | | PATHOLOGY | [address] | | | + + + + + CALCIUM, IONIZED, WHOLE BLOOD (12/08/2006 11:30 AM PDT) + + + + + + | Component | Value | Ref Range | Performed | Pathologist | | | | | At | Signature | + + + + + + | MAYNOR ICA, | 1.11 (L) | 1.14 - 1.32 | [facility] | | | WHOLE BLD | | mmol/L | DEPARTMENT | | | | | | OF | | | | | | PATHOLOGY | | + + + + + + | PH, WHOLE | 7.37 | | [facility] | | | BLOOD | | | DEPARTMENT | | | | | | OF | | | | | | PATHOLOGY | | + + + + + + | CALC ICA, | 1.09 (L) | 1.14 - 1.28 | [facility] | | | WHOLE BLD | | mmol/L | DEPARTMENT | | | | | | OF | | | | | | PATHOLOGY | | + + + + + + + + | Specimen | + + | | + + + + + | Narrative | Performed At | + + + | Ionized Calcium, Whole Blood | [facility] | | | DEPARTMENT OF | | | PATHOLOGY | + + + + + + + + | Performing | Address | City/State/Zipcode | Phone Number | | Organization | | | | + + + + + | [facility] DEPARTMENT OF | [address] | [place] [address] | | | PATHOLOGY | [address] | | | + + + + + | [facility] | [address] | [place] [address] | | | PATHOLOGY | [address] | | | + + + + + MAGNESIUM, PLASMA (12/08/2006 4:30 AM PDT) + +-------+ + + + | Component | Value | Ref Range | Performed | Pathologist | | | | | At | Signature | + +-------+ + + + | MAGNESIUM,P | 2.5 | 1.8 - 2.5 mg/dL | [facility] | | | LASMA | | | DEPARTMENT | | | | | | OF | | | | | | PATHOLOGY | | + +-------+ + + + + + | Specimen | + + | | + + + + + | Narrative | Performed At | + + + | Phoned [employer]. | [facility] | | | DEPARTMENT OF | | | PATHOLOGY | + + + + + + + + | Performing | Address | City/State/Zipcode | Phone Number | | Organization | | | | + + + + + | [facility] DE[facility] | [address] | [place] [address] | | | PATHOLOGY | [address] | | | + + + + + | [facility] | [address] | [place] [address] | | | PATHOLOGY | [address] | | | + + + + + CK (12/08/2006 4:30 AM PDT) + + + + + + | Component | Value | Ref Range | Performed | Pathologist | | | | | At | Signature | + + + + + + | CK | 1657 (H) | 38 - 234 U/L | [facility] | | | | | | DEPARTMENT | | | | | | OF | | | | | | PATHOLOGY | | + + + + + + + + | Specimen | + + | | + + + + + | Narrative | Performed At | + + + | Phoned CAReadback. | [facility] | | | DEPARTMENT OF | | | PATHOLOGY | + + + + + + + + | Performing | Address | City/State/Zipcode | Phone Number | | Organization | | | | + + + + + | [facility] | [address] | [place] [address] | | | PATHOLOGY | [address] | | | + + + + + | [facility] | [address] | [place] [address] | | | PATHOLOGY | [address] | | | + + + + + PHOSPHORUS, PLASMA (12/08/2006 4:30 AM PDT) + +-------+ + + + | Component | Value | Ref Range | Performed | Pathologist | | | | | At | Signature | + +-------+ + + + | PHOSPHORUS, | 2.6 | 2.4 - 4.7 mg/dL | [facility] | | | PLASMA | | | DEPARTMENT | | | (LAB) | | | OF | | | | | | PATHOLOGY | | + +-------+ + + + + + | Specimen | + + | | + + + + + | Narrative | Performed At | + + + | Phoned CAReadback. | [facility] | | | DEPARTMENT OF | | | PATHOLOGY | + + + + + + + + | Performing | Address | City/State/Zipcode | Phone Number | | Organization | | | | + + + + + | [facility] DEPARTMENT OF | [address] | [place] [address] | | | PATHOLOGY | [address] | | | + + + + + | [facility] DEPARTMENT OF | [address] | [place] [address] | | | PATHOLOGY | [address] | | | + + + + + BASIC METABOLIC SET (NA,K,CL,BUN,CR,GLU,CO2,CA) (12/08/2006 4:30 AM PDT) + +---------+ + + + | Component | Value | Ref Range | Performed | Pathologist | | | | | At | Signature | + +---------+ + + + | GLUCOSE, | 97 | 60 - 99 mg/dL | [facility] | | | PLASMA | | | DEPARTMENT | | | (LAB) | | | OF | | | | | | PATHOLOGY | | + +---------+ + + + | BUN, PLASMA | 5 (L) | 6 - 20 mg/dL | [facility] | | | (LAB) | | | DEPARTMENT | | | | | | OF | | | | | | PATHOLOGY | | + +---------+ + + + | CREATININE | 0.6 | 0.6 - 1.1 mg/dL | [facility] | | | PLASMA | | | DEPARTMENT | | | (LAB) | | | OF | | | | | | PATHOLOGY | | + +---------+ + + + | SODIUM, | 139 | 136 - 145 | [facility] | | | PLASMA | | mmol/L | DEPARTMENT | | | (LAB) | | | OF | | | | | | PATHOLOGY | | + +---------+ + + + | POTASSIUM, | 5.0 | 3.5 - 5.1 | [facility] | | | PLASMA | | mmol/L | DEPARTMENT | | | (LAB) | | | OF | | | | | | PATHOLOGY | | + +---------+ + + + | CHLORIDE, | 109 (H) | 98 - 107 mmol/L | [facility] | | | PLASMA | | | DEPARTMENT | | | (LAB) | | | OF | | | | | | PATHOLOGY | | + +---------+ + + + | TOTAL CO2, | 28 | 23 - 29 mmol/L | [facility] | | | PLASMA | | | DEPARTMENT | | | (LAB) | | | OF | | | | | | PATHOLOGY | | + +---------+ + + + | CALCIUM, | 6.8 (*) | 8.5 - 10.5 | [facility] | | | PLASMA | | mg/dL | DEPARTMENT | | | (LAB) | | | OF | | | | | | PATHOLOGY | | + +---------+ + + + + + | Specimen | + + | | + + + + + | Narrative | Performed At | + + + | Phoned CAReadback. | [facility] | | | DEPARTMENT OF | | | PATHOLOGY | + + + + + + + + | Performing | Address | City/State/Zipcode | Phone Number | | Organization | | | | + + + + + | [facility] DEPARTMENT OF | [address] | [place] [address] | | | PATHOLOGY | [address] | | | + + + + + | [facility] DEPARTMENT OF | [facility] | [place] [address] | | | PATHOLOGY | [address] | | | + + + + + PROTHROMBIN TIME (12/08/2006 4:30 AM PDT) + + + + + + | Component | Value | Ref Range | Performed | Pathologist | | | | | At | Signature | + + + + + + | INR | 1.14Comment: | 0.90 - 1.20 INR | [facility] | | | | PT INR Therapeutic | | DEPARTMENT | | | | ranges for full | | OF | | | | anticoagulation: | | PATHOLOGY | | | | INR for | | | | | | Venous Thromboembolism | | | | | | | | | | | | (2.0-3.0)INR | | | | | | INR for most | | | | | | patients with mech. | | | | | | valves (2.5-3.5)INR | | | | + + + + + + + + | Specimen | + + | | + + + + + + + | Performing | Address | City/State/Zipcode | Phone Number | | Organization | | | | + + + + + | [facility] DEPARTMENT | [address] | [place] [address] | | | PATHOLOGY | [address] | | | + + + + + | [facility] | [address] | [place] [address] | | | PATHOLOGY | [address] | | | + + + + + CBC ONLY WITH PLATELET (12/08/2006 4:30 AM PDT) + + + + + + | Component | Value | Ref Range | Performed | Pathologist | | | | | At | Signature | + + + + + + | WHITE CELL | 4.3 (L) | 4.4 - 11.0 K/cu | [facility] | | | COUNT | | mm | DEPARTMENT | | | | | | OF | | | | | | PATHOLOGY | | + + + + + + | RED CELL | 1.96 (L) | 4.00 - 5.20 | [facility] | | | COUNT | | M/cu mm | DEPARTMENT | | | | | | OF | | | | | | PATHOLOGY | | + + + + + + | HEMOGLOBIN | 6.8 (L) | 12.0 - 16.0 | [facility] | | | | | g/dL | DEPARTMENT | | | | | | OF | | | | | | PATHOLOGY | | + + + + + + | HEMATOCRIT | 19.4 (*) | 36.0 - 46.0 % | [facility] | | | | | | DEPARTMENT | | | | | | OF | | | | | | PATHOLOGY | | + + + + + + | MCV | 98.8 (H) | 80.0 - 96.0 fL | [facility] | | | | | | DEPARTMENT | | | | | | OF | | | | | | PATHOLOGY | | + + + + + + | MCHC | 34.9 | 33.4 - 35.5 | [facility] | | | | | g/dL | DEPARTMENT | | | | | | OF | | | | | | PATHOLOGY | | + + + + + + | RDW | 13.6 | 11.5 - 15.0 % | [facility] | | | | | | DEPARTMENT | | | | | | OF | | | | | | PATHOLOGY | | + + + + + + | PLATELET | 140 (L) | 150 - 400 K/cu | [facility] | | | COUNT | | mm | DEPARTMENT | | | | | | OF | | | | | | PATHOLOGY | | + + + + + + | CBC | Hematocrit Phoned. | | [facility] | | | COMMENTS | Readback. | | DEPARTMENT | | | | | | OF | | | | | | PATHOLOGY | | + + + + + + + + | Specimen | + + | | + + + + + | Narrative | Performed At | + + + | * Corrected 12/09/06 06:34: DAVID ARDON, prev report: | [facility] | | Hematocrit Phoned. | DEPARTMENT OF | | | PATHOLOGY | + + + + + + + + | Performing | Address | City/State/Zipcode | Phone Number | | Organization | | | | + + + + + | [facility] | [address] [place] [address] | [place] [address] | | | PATHOLOGY | [address] | | | + + + + + | [facility] | [address] [place] [address] | [place] [address] | | | PATHOLOGY | [address] | | | + + + + + APTT (ACT. PART. THROMBO TIME) (12/08/2006 4:30 AM PDT) + + + + + + | Component | Value | Ref Range | Performed | Pathologist | | | | | At | Signature | + + + + + + | APTT | 24.7 (L)Comment: | 26.0 - 36.0 | [facility] | | | | APTT Therapeutic | seconds | DEPARTMENT | | | | Range | | OF | | | | | | PATHOLOGY | | | | (75-120)sec | | | | | | Heparin levels | | | | | | of 0.35-0.7 U/mL | | | | + + + + + + + + | Specimen | + + | | + + + + + + + | Performing | Address | City/State/Zipcode | Phone Number | | Organization | | | | + + + + + | [facility] | [address] | [place] [address] | | | PATHOLOGY | [address] | | | + + + + + | [facility] DE[facility]MENT [facility] | [address] | [place] [address] | | | PATHOLOGY | [address] | | | + + + + + PHOSPHORUS, PLASMA (12/07/2006 2:55 PM PDT) + +-------+ + + + | Component | Value | Ref Range | Performed | Pathologist | | | | | At | Signature | + +-------+ + + + | PHOSPHORUS, | 3.8 | 2.4 - 4.7 mg/dL | [facility] | | | PLASMA | | | DEPARTMENT | | | (LAB) | | | OF | | | | | | PATHOLOGY | | + +-------+ + + + + + | Specimen | + + | | + + + + + + + | Performing | Address | City/State/Zipcode | Phone Number | | Organization | | | | + + + + + | [facility] DEPARTMENT OF | [address] | [place] [address] | | | PATHOLOGY | [address] | | | + + + + + | [facility] DEPARTMENT OF | [address] | [place] [address] | | | PATHOLOGY | [address] | | | + + + + + CBC ONLY WITH PLATELET (12/07/2006 2:55 PM PDT) + + + + + + | Component | Value | Ref Range | Performed | Pathologist | | | | | At | Signature | + + + + + + | WHITE CELL | 5.4 | 4.4 - 11.0 K/cu | [facility] | | | COUNT | | mm | DEPARTMENT | | | | | | OF | | | | | | PATHOLOGY | | + + + + + + | RED CELL | 2.40 (L) | 4.00 - 5.20 | [facility] | | | COUNT | | M/cu mm | DEPARTMENT | | | | | | OF | | | | | | PATHOLOGY | | + + + + + + | HEMOGLOBIN | 8.1 (L) | 12.0 - 16.0 | [facility] | | | | | g/dL | DEPARTMENT | | | | | | OF | | | | | | PATHOLOGY | | + + + + + + | HEMATOCRIT | 23.4 (L) | 36.0 - 46.0 % | [facility] | | | | | | DEPARTMENT | | | | | | OF | | | | | | PATHOLOGY | | + + + + + + | MCV | 97.6 (H) | 80.0 - 96.0 fL | [facility] | | | | | | DEPARTMENT | | | | | | OF | | | | | | PATHOLOGY | | + + + + + + | MCHC | 34.8 | 33.4 - 35.5 | [facility] | | | | | g/dL | DEPARTMENT | | | | | | OF | | | | | | PATHOLOGY | | + + + + + + | RDW | 13.3 | 11.5 - 15.0 % | [facility] | | | | | | DEPARTMENT | | | | | | OF | | | | | | PATHOLOGY | | + + + + + + | PLATELET | 166 | 150 - 400 K/cu | [facility] | | | COUNT | | mm | DEPARTMENT | | | | | [...] + | [facility] DEPARTMENT OF | [address] | [place] [address] | | | PATHOLOGY | [address] | | | + + + + + | [facility] DEPARTMENT OF | [address] | [place] [address] | | | PATHOLOGY | [address] | | | + + + + + MAGNESIUM, PLASMA (12/07/2006 2:55 PM PDT) + +-------+ + + + | Component | Value | Ref Range | Performed | Pathologist | | | | | At | Signature | + +-------+ + + + | MAGNESIUM,P | 2.4 | 1.8 - 2.5 mg/dL | [facility] | | | LASMA | | | DEPARTMENT | | | | | | OF | | | | | | PATHOLOGY | | + +-------+ + + + + + | Specimen | + + | | + + + + + + + | Performing | Address | City/State/Zipcode | Phone Number | | Organization | | | | + + + + + | [facility] DEPARTMENT OF | [address] | [place] [address] | | | PATHOLOGY | [address] | | | + + + + + | [facility] DEPARTMENT OF | [address] | [place] [address] | | | PATHOLOGY | [address] | | | + + + + + CK (12/07/2006 2:55 PM PDT) + + + + + + | Component | Value | Ref Range | Performed | Pathologist | | | | | At | Signature | + + + + + + | CK | 2366 (H) | 38 - 234 U/L | [facility] | | | | | [...] + | [facility] DEPARTMENT OF | [address] | [place] [address] | | | PATHOLOGY | [address] | | | + + + + + | [facility] DEPARTMENT OF | [address] | [place] [address] | | | PATHOLOGY | [address] | | | + + + + + BASIC METABOLIC SET (NA,K,CL,BUN,CR,GLU,CO2,CA) (12/07/2006 2:55 PM PDT) + +---------+ + + + | Component | Value | Ref Range | Performed | Pathologist | | | | | At | Signature | + +---------+ + + + | GLUCOSE, | 112 (H) | 60 - 99 mg/dL | [facility] | | | PLASMA | | | DEPARTMENT | | | (LAB) | | | OF | | | | | | PATHOLOGY | | + +---------+ + + + | BUN, PLASMA | 6 | 6 - 20 mg/dL | [facility] | | | (LAB) | | | DEPARTMENT | | | | | | OF | | | | | | PATHOLOGY | | + +---------+ + + + | CREATININE | 0.6 | 0.6 - 1.1 mg/dL | [facility] | | | PLASMA | | | DEPARTMENT | | | (LAB) | | | OF | | | | | | PATHOLOGY | | + +---------+ + + + | SODIUM, | 132 (L) | 136 - 145 | [facility] | | | PLASMA | | mmol/L | DEPARTMENT | | | (LAB) | | | OF | | | | | | PATHOLOGY | | + +---------+ + + + | POTASSIUM, | 4.4 | 3.5 - 5.1 | [facility] | | | PLASMA | | mmol/L | DEPARTMENT | | | (LAB) | | | OF | | | | | | PATHOLOGY | | + +---------+ + + + | CHLORIDE, | 101 | 98 - 107 mmol/L | [facility] | | | PLASMA | | | DEPARTMENT | | | (LAB) | | | OF | | | | | | PATHOLOGY | | + +---------+ + + + | TOTAL CO2, | 26 | 23 - 29 mmol/L | [facility] | | | PLASMA | | | DEPARTMENT | | | (LAB) | | | OF | | | | | | PATHOLOGY | | + +---------+ + + + | CALCIUM, | 7.3 (L) | 8.5 - 10.5 | [facility] | | | PLASMA | | mg/dL | DEPARTMENT | | | (LAB) | | | OF | | | | | | PATHOLOGY | | + +---------+ + + + + + | Specimen | + + | | + + + + + + + | Performing | Address | City/State/Zipcode | Phone Number | | Organization | | | | + + + + + | [facility] DEPARTMENT OF | [address] | [place] [address] | | | PATHOLOGY | [address] | | | + + + + + | [facility] DEPARTMENT | [address] | [place] [address] | | | PATHOLOGY | [address] | | | + + + + + PHOSPHORUS, PLASMA (12/07/2006 10:00 AM PDT) + +-------+ + + + | Component | Value | Ref Range | Performed | Pathologist | | | | | At | Signature | + +-------+ + + + | PHOSPHORUS, | 4.0 | 2.4 - 4.7 mg/dL | [facility] | | | PLASMA | | | DEPARTMENT | | | (LAB) | | | OF | | | | | | PATHOLOGY | | + +-------+ + + + + + | Specimen | + + | | + + + + + | Narrative | Performed At | + + + | CALC Phoned Readback. | [facility] | | | DEPARTMENT OF | | | PATHOLOGY | + + + + + + + + | Performing | Address | City/State/Zipcode | Phone Number | | Organization | | | | + + + + + | [facility] DEPARTMENT OF | [address] | [place] [address] | | | PATHOLOGY | [address] | | | + + + + + | [facility] DEPARTMENT OF | [address] | [place] [address] | | | PATHOLOGY | [address] | | | + + + + + MAGNESIUM, PLASMA (12/07/2006 10:00 AM PDT) + +---------+ + + + | Component | Value | Ref Range | Performed | Pathologist | | | | | At | Signature | + +---------+ + + + | MAGNESIUM,P | 1.6 (L) | 1.8 - 2.5 mg/dL | [facility] | | | LASMA | | | DEPARTMENT | | | | | | OF | | | | | | PATHOLOGY | | + +---------+ + + + + + | Specimen | + + | | + + + + + | Narrative | Performed At | + + + | CALC Phoned Readback. | [facility] | | | DEPARTMENT OF | | | PATHOLOGY | + + + + + + + + | Performing | Address | City/State/Zipcode | Phone Number | | Organization | | | | + + + + + | [facility] DEPARTMENT OF | [address] | [place] [address] | | | PATHOLOGY | [address] | | | + + + + + | [facility] DEPARTMENT OF | [address] | [place] [address] | | | PATHOLOGY | [address] | | | + + + + + BLOOD GASES, ARTERIAL (12/07/2006 10:00 AM PDT) + + + + + + | Component | Value | Ref Range | Performed | Pathologist | | | | | At | Signature | + + + + + + | PAT TEMP | 36.8 | Degree C | [facility] | | | ARTERIAL | | | DEPARTMENT | | | | | | OF | | | | | | PATHOLOGY | | + + + + + + | FIO2 | 40 | | [facility] | | | ARTERIAL | | | DEPARTMENT | | | | | | OF | | | | | | PATHOLOGY | | + + + + + + | PH ARTERIAL | 7.34 (L) | 7.37 - 7.44 | [facility] | | | | | | DEPARTMENT | | | | | | OF | | | | | | PATHOLOGY | | + + + + + + | PCO2 | 44 (H) | 32 - 43 mmHg | [facility] | | | ARTERIAL | | | DEPARTMENT | | | | | | OF | | | | | | PATHOLOGY | | + + + + + + | PO2 | 146 (H) | 72 - 104 mmHg | [facility] | | | ARTERIAL | | | DEPARTMENT | | | | | | OF | | | | | | PATHOLOGY | | + + + + + + | BASE EXCESS | -2.0 | | [facility] | | | ARTERIAL | | | DEPARTMENT | | | | | | OF | | | | | | PATHOLOGY | | + + + + + + | HCO3 | 23 | 21 - 27 mmol/L | [facility] | | | ARTERIAL | | | DEPARTMENT | | | | | | OF | | | | | | PATHOLOGY | | + + + + + + | TOTAL CO2 | 25 | 22 - 28 mmol/L | [facility] | | | ARTERIAL | | | DEPARTMENT | | | | | | OF | | | | | | PATHOLOGY | | + + + + + + | O2 SAT, | 99.3 (H) | 92.0 - 98.0 % | [facility] | | | ARTERIAL | | | DEPARTMENT | | | | | | OF | | | | | | PATHOLOGY | | + + + + + + + + | Specimen | + + | | + + + + + | Narrative | Performed At | + + + | Arterial Blood Gas | [facility] | | | DEPARTMENT OF | | | PATHOLOGY | + + + + + + + + | Performing | Address | City/State/Zipcode | Phone Number | | Organization | | | | + + + + + | [facility] | [address] | [place] [address] | | | PATHOLOGY | [address] | | | + + + + + | [facility] | [address] | [place] [address] | | | PATHOLOGY | [address] | | | + + + + + BASIC METABOLIC SET (NA,K,CL,BUN,CR,GLU,CO2,CA) (12/07/2006 10:00 AM PDT) + +---------+ + + + | Component | Value | Ref Range | Performed | Pathologist | | | | | At | Signature | + +---------+ + + + | GLUCOSE, | 116 (H) | 60 - 99 mg/dL | [facility] | | | PLASMA | | | DEPARTMENT | | | (LAB) | | | OF | | | | | | PATHOLOGY | | + +---------+ + + + | BUN, PLASMA | 5 (L) | 6 - 20 mg/dL | [facility] | | | (LAB) | | | DEPARTMENT | | | | | | OF | | | | | | PATHOLOGY | | + +---------+ + + + | CREATININE | 0.6 | 0.6 - 1.1 mg/dL | [facility] | | | PLASMA | | | DEPARTMENT | | | (LAB) | | | OF | | | | | | PATHOLOGY | | + +---------+ + + + | SODIUM, | 128 (L) | 136 - 145 | [facility] | | | PLASMA | | mmol/L | DEPARTMENT | | | (LAB) | | | OF | | | | | | PATHOLOGY | | + +---------+ + + + | POTASSIUM, | 5.9 (H) | 3.5 - 5.1 | [facility] | | | PLASMA | | mmol/L | DEPARTMENT | | | (LAB) | | | OF | | | | | | PATHOLOGY | | + +---------+ + + + | CHLORIDE, | 99 | 98 - 107 mmol/L | [facility] | | | PLASMA | | | DEPARTMENT | | | (LAB) | | | OF | | | | | | PATHOLOGY | | + +---------+ + + + | TOTAL CO2, | 25 | 23 - 29 mmol/L | [facility] | | | PLASMA | | | DEPARTMENT | | | (LAB) | | | OF | | | | | | PATHOLOGY | | + +---------+ + + + | CALCIUM, | 7.0 (*) | 8.5 - 10.5 | [facility] | | | PLASMA | | mg/dL | DEPARTMENT | | | (LAB) | | | OF | | | | | | PATHOLOGY | | + +---------+ + + + + + | Specimen | + + | | + + + + + | Narrative | Performed At | + + + | CALC Phoned Readback. | [facility] | | | DEPARTMENT OF | | | PATHOLOGY | + + + + + + + + | Performing | Address | City/State/Zipcode | Phone Number | | Organization | | | | + + + + + | [facility] DEPARTMENT OF | [address] | [place] [address] | | | PATHOLOGY | [address] | | | + + + + + | [facility] DEPARTMENT OF | [address] | [place] [address] | | | PATHOLOGY | [address] | | | + + + + + PHOSPHORUS, PLASMA (12/07/2006 8:05 AM PDT) + + + + + + | Component | Value | Ref Range | Performed | Pathologist | | | | | At | Signature | + + + + + + | PHOSPHORUS, | 11.5 (H) | 2.4 - 4.7 mg/dL | [facility] | | | PLASMA | | | DEPARTMENT | | | (LAB) | | | OF | | | | | | PATHOLOGY | | + + + + + + + + | Specimen | + + | | + + + + + | Narrative | Performed At | + + + | Specimen lipemic; lipids removed by ultracentrifugation prior to | [facility] | | analysis. | DEPARTMENT OF | | | PATHOLOGY | + + + + + + + + | Performing | Address | City/State/Zipcode | Phone Number | | Organization | | | | + + + + + | [facility] DEPARTMENT OF | [address] | [place] [address] | | | PATHOLOGY | [address] | | | + + + + + | [facility] | [address] | [place] [address] | | | PATHOLOGY | [address] | | | + + + + + MAGNESIUM, PLASMA (12/07/2006 8:05 AM PDT) + +---------+ + + + | Component | Value | Ref Range | Performed | Pathologist | | | | | At | Signature | + +---------+ + + + | MAGNESIUM,P | 1.2 (L) | 1.8 - 2.5 mg/dL | [facility] | | | LASMA | | | DEPARTMENT | | | | | | OF | | | | | | PATHOLOGY | | + +---------+ + + + + + | Specimen | + + | | + + + + + | Narrative | Performed At | + + + | Specimen lipemic; lipids removed by ultracentrifugation prior to | [facility] | | analysis. | DEPARTMENT OF | | | PATHOLOGY | + + + + + + + + | Performing | Address | City/State/Zipcode | Phone Number | | Organization | | | | + + + + + | [facility] DEPARTMENT OF | [address] | [place] [address] | | | PATHOLOGY | [address] | | | + + + + + | [facility] DEPARTMENT OF | [address] | [place] [address] | | | PATHOLOGY | [address] | | | + + + + + 12 LEAD ECG (12/07/2006 8:00 AM PDT) + + + + + + | Component | Value | Ref Range | Performed | Pathologist | | | | | At | Signature | + + + + + + | VENTRICULAR | 80 | BPM | [facility] | | | RATE | | | OF | | | | | | CARDIOLOGY | | + + + + + + | ATRIAL RATE | 80 | BPM | [facility] | | | | | | OF | | | | | | CARDIOLOGY | | + + + + + + | P-R | 138 | ms | [facility] | | | INTERVAL | | | OF | | | | | | CARDIOLOGY | | + + + + + + | QRS | 70 | ms | [facility] | | | DURATION | | | OF | | | | | | CARDIOLOGY | | + + + + + + | QT | 410 | ms | [facility] | | | | | | OF | | | | | | CARDIOLOGY | | + + + + + + | QTC | 473 | ms | [facility] | | | | | | OF | | | | | | CARDIOLOGY | | + + + + + + | P AXIS | 79 | degrees | [facility] | | | | | | OF | | | | | | CARDIOLOGY | | + + + + + + | R AXIS | 72 | degrees | [facility] | | | | | | OF | | | | | | CARDIOLOGY | | + + + + + + | T AXIS | 75 | degrees | [facility] | | | | | | OF | | | | | | CARDIOLOGY | | + + + + + + | EKG | Normal sinus | | [facility] | | | DIAGNOSIS | rhythmNormal ECG"I have | | OF | | | | personally interpreted | | CARDIOLOGY | | | | this report, either | | | | | | alone or with a | | | | | | trainee."Confirmed by | | | | | | SARABJIT OCONNELL ([id number]) on | | | | | | 07-Dec-2006 11:56:43 | | | | + + + + + + | LINK TO | | | [facility] | | | [facility] | | | OF | | | (ECG | | | CARDIOLOGY | | | VIEWER) | | | | | + + + + + + + + | Specimen | + + | | + + + + + | Narrative | Performed At | + + + | | | + + + + + + + + | Performing | Address | City/State/Zipcode | Phone Number | | Organization | | | | + + + + + | [facility] | [address] | [place], [place] | | | CARDIOLOGY | [address] | [address] | | + + + + + | [facility] | [address] | [place], [place] | | | CARDIOLOGY | [address] | [address] | | + + + + + BASIC METABOLIC SET (NA,K,CL,BUN,CR,GLU,CO2,CA) (12/07/2006 6:03 AM PDT) + +---------+ + + + | Component | Value | Ref Range | Performed | Pathologist | | | | | At | Signature | + +---------+ + + + | GLUCOSE, | 116 (H) | 60 - 99 mg/dL | [facility] | | | PLASMA | | | DEPARTMENT | | | (LAB) | | | OF | | | | | | PATHOLOGY | | + +---------+ + + + | BUN, PLASMA | 7 | 6 - 20 mg/dL | [facility] | | | (LAB) | | | DEPARTMENT | | | | | | OF | | | | | | PATHOLOGY | | + +---------+ + + + | CREATININE | 0.6 | 0.6 - 1.1 mg/dL | [facility] | | | PLASMA | | | DEPARTMENT | | | (LAB) | | | OF | | | | | | PATHOLOGY | | + +---------+ + + + | SODIUM, | 128 (L) | 136 - 145 | [facility] | | | PLASMA | | mmol/L | DEPARTMENT | | | (LAB) | | | OF | | | | | | PATHOLOGY | | + +---------+ + + + | POTASSIUM, | 3.5 | 3.5 - 5.1 | [facility] | | | PLASMA | | mmol/L | DEPARTMENT | | | (LAB) | | | OF | | | | | | PATHOLOGY | | + +---------+ + + + | CHLORIDE, | 99 | 98 - 107 mmol/L | [facility] | | | PLASMA | | | DEPARTMENT | | | (LAB) | | | OF | | | | | | PATHOLOGY | | + +---------+ + + + | TOTAL CO2, | 22 (L) | 23 - 29 mmol/L | [facility] | | | PLASMA | | | DEPARTMENT | | | (LAB) | | | OF | | | | | | PATHOLOGY | | + +---------+ + + + | CALCIUM, | 7.2 (L) | 8.5 - 10.5 | [facility] | | | PLASMA | | mg/dL | DEPARTMENT | | | (LAB) | | | OF | | | | | | PATHOLOGY | | + +---------+ + + + + + | Specimen | + + | | + + + + + | Narrative | Performed At | + + + | Ordered by an unspecified provider. | [facility] | | | DEPARTMENT OF | | | PATHOLOGY | + + + + + + + + | Performing | Address | City/State/Zipcode | Phone Number | | Organization | | | | + + + + + | [facility] DEPARTMENT OF | [address] | [place] [address] | | | PATHOLOGY | [address] | | | + + + + + | [facility] DE[facility]MENT OF | [address] | [place] [address] | | | PATHOLOGY | [address] | | | + + + + + CK (12/07/2006 6:03 AM PDT) + + + + + + | Component | Value | Ref Range | Performed | Pathologist | | | | | At | Signature | + + + + + + | CK | 2513 (H) | 38 - 234 U/L | [facility] | | | | | [...] unspecified provider. | [facility] | | | DEPARTMENT OF | | | PATHOLOGY | + + + + + + + + | Performing | Address | City/State/Zipcode | Phone Number | | Organization | | | | + + + + + | [facility] DEPARTMENT OF | [address] | [place] [address] | | | PATHOLOGY | [address] | | | + + + + + | [facility] DEPARTMENT | [address] | [place] [address] | | | PATHOLOGY | [address] | | | + + + + + TROPONIN I (12/07/2006 6:03 AM PDT) + +--------+ + + + | Component | Value | Ref Range | Performed | Pathologist | | | | | At | Signature | + +--------+ + + + | TROPONIN I | < 0.01 | <0.50 ng/mL | [facility] | | | | | | DEPARTMENT | | | | | | OF | | | | | | PATHOLOGY | | + +--------+ + + + + + | Specimen | + + | | + + + + + | Narrative | Performed At | + + + | Ordered by an unspecified provider. | [facility] | | | DEPARTMENT OF | | | PATHOLOGY | + + + + + + + + | Performing | Address | City/State/Zipcode | Phone Number | | Organization | | | | + + + + + | [facility] DEPARTMENT OF | [address] | [place] [address] | | | PATHOLOGY | [address] | | | + + + + + | [facility] DEPARTMENT OF | [address] | [place] [address] | | | PATHOLOGY | [address] | | | + + + + + PROTHROMBIN TIME (12/07/2006 6:03 AM PDT) + + + + + + | Component | Value | Ref Range | Performed | Pathologist | | | | | At | Signature | + + + + + + | INR | 1.27 (H)Comment: | 0.90 - 1.20 INR | [facility] | | | | PT INR Therapeutic | | DEPARTMENT | | | | ranges for full | | OF | | | | anticoagulation: | | PATHOLOGY | | | | INR for | | | | | | Venous Thromboembolism | | | | | | | | | | | | (2.0-3.0)INR | | | | | | INR for most | | | | | | patients with mech. | | | | | | valves (2.5-3.5)INR | | | | + + + + + + + + | Specimen | + + | | + + + + + | Narrative | Performed At | + + + | Ordered by an unspecified provider. | [facility] | | | DEPARTMENT OF | | | PATHOLOGY | + + + + + + + + | Performing | Address | City/State/Zipcode | Phone Number | | Organization | | | | + + + + + | [facility] DEPARTMENT OF | [address] | [place] [address] | | | PATHOLOGY | [address] | | | + + + + + | [facility] DEPARTMENT OF | [address] | [place] [address] | | | PATHOLOGY | [address] | | | + + + + + CBC ONLY WITH PLATELET (12/07/2006 6:03 AM PDT) + + + + + + | Component | Value | Ref Range | Performed | Pathologist | | | | | At | Signature | + + + + + + | WHITE CELL | 8.5 | 4.4 - 11.0 K/cu | [facility] | | | COUNT | | mm | DEPARTMENT | | | | | | OF | | | | | | PATHOLOGY | | + + + + + + | RED CELL | 2.93 (L) | 4.00 - 5.20 | [facility] | | | COUNT | | M/cu mm | DEPARTMENT | | | | | | OF | | | | | | PATHOLOGY | | + + + + + + | HEMOGLOBIN | 9.8 (L) | 12.0 - 16.0 | [facility] | | | | | g/dL | DEPARTMENT | | | | | | OF | | | | | | PATHOLOGY | | + + + + + + | HEMATOCRIT | 28.6 (L) | 36.0 - 46.0 % | [facility] | | | | | | DEPARTMENT | | | | | | OF | | | | | | PATHOLOGY | | + + + + + + | MCV | 97.6 (H) | 80.0 - 96.0 fL | [facility] | | | | | | DEPARTMENT | | | | | | OF | | | | | | PATHOLOGY | | + + + + + + | MCHC | 34.2 | 33.4 - 35.5 | [facility] | | | | | g/dL | DEPARTMENT | | | | | | OF | | | | | | PATHOLOGY | | + + + + + + | RDW | 13.7 | 11.5 - 15.0 % | [facility] | | | | | | DEPARTMENT | | | | | | OF | | | | | | PATHOLOGY | | + + + + + + | PLATELET | 196 | 150 - 400 K/cu | [facility] | | | COUNT | | mm | DEPARTMENT | | | | | | OF | | | | | | PATHOLOGY | | + + + + + + + + | Specimen | + + | | + + + + + | Narrative | Performed At | + + + | Ordered by an unspecified provider. | [facility] | | | DEPARTMENT OF | | | PATHOLOGY | + + + + + + + + | Performing | Address | City/State/Zipcode | Phone Number | | Organization | | | | + + + + + | [facility] | [facility] | [place] [address] | | | PATHOLOGY | [address] | | | + + + + + | [facility] | [address] | [place] [address] | | | PATHOLOGY | [address] | | | + + + + + APTT (ACT. PART. THROMBO TIME) (12/07/2006 6:03 AM PDT) + + + + + + | Component | Value | Ref Range | Performed | Pathologist | | | | | At | Signature | + + + + + + | APTT | 28.0Comment: | 26.0 - 36.0 | [facility] | | | | APTT Therapeutic Range | seconds | DEPARTMENT | | | | | | OF | | | | | | PATHOLOGY | | | | (75-120)sec | | | | | | Heparin levels | | | | | | of 0.35-0.7 U/mL | | | | + + + + + + + + | Specimen | + + | | + + + + + | Narrative | Performed At | + + + | Ordered by an unspecified provider. | [facility] | | | DEPARTMENT OF | | | PATHOLOGY | + + + + + + + + | Performing | Address | City/State/Zipcode | Phone Number | | Organization | | | | + + + + + | [facility] | [address] [place] [address] | [place] [address] | | | PATHOLOGY | [address] | | | + + + + + | [facility] | [address] [facility] | [place] [address] | | | PATHOLOGY | [address] | | | + + + + + ALCOHOL SCRN, SERUM (12/07/2006 6:03 AM PDT) + +-------+ + + + | Component | Value | Ref Range | Performed | Pathologist | | | | | At | Signature | + +-------+ + + + | ETHANOL | 44 | mg/dL | [facility] | | | (ALCOHOL) | | | DEPARTMENT | | | | | | OF | | | | | | PATHOLOGY | | + +-------+ + + + + + | Specimen | + + | | + + + + + | Narrative | Performed At | + + + | Ordered by an unspecified provider. | [facility] | | | DEPARTMENT OF | | | PATHOLOGY | + + + + + + + + | Performing | Address | City/State/Zipcode | Phone Number | | Organization | | | | + + + + + | [facility] | [address] | [place] [address] | | | PATHOLOGY | [address] | | | + + + + + | [facility] | [address] | [place] [address] | | | PATHOLOGY | [address] | | | + + + + + documented in this encounter Visit Diagnoses Not on filedocumented in this encounter
--- OUTSIDE RECORDS SUMMARY | ~2019-01-26 | XMS | Encounter Summary ---
Demographics + + + | Address | [address] | | | [place] [address] | + + + | Home Phone | | + + + | Preferred Language | Unknown | + + + | Marital Status | Single | + + + | Catholic Affiliation | EPI | + + + | Race | White | + + + | Ethnic Group | Not or | + + + Author + + + | Author | [facility] | + + + | Organization | [facility] | + + + | Address | Unknown | + + + | Phone | Unavailable | + + + Support + + + + + | Name | Relationship | Address | Phone | + + + + + | Nurys Flores | ECON | [address] | | | | | [place], | | | | | [place] [address] | | + + + + + Care Team Providers + +------+ + | Care Bleacher Lard Name | Role | Phone | + +------+ + | Svetlana Cedillo | PCP | | | MD | | | + +------+ + Encounter Details +--------+ + + + + | Date | Type | Department | Care Team | Description | +--------+ + + + + | 01/03/ | Physical Therapy Nurse | Orthopaedics at | Victor Manuel Crowley MD | Clavicle Fracture | | 2007 | | [facility] [address] | | (Primary Dx) | | | | Rosemary Mailcode: CH12A | | | | | | [facility] | | | | | | and Healing, | | | | | | [facility] | | | | | | Floor [place], [place] | | | | | | [address] | | | | | | [phone] | | | +--------+ + + + [...] + +--------+ + + + | X-RAY CLAVICLE | Routin | 01/05/2008 | Clavicle Fracture | Results for this | | BILATERAL | e | 11:33 AM | | procedure are in the | | | | PDT | | results section. | + +--------+ + + + documented in this encounter Results X-RAY CLAVICLE COMPLETE (01/05/2008 11:33 AM PDT) + + + + + + | Component | Value | Ref Range | Performed | Pathologist | | | | | At | Signature | + + + + + + | CLAVICLE | STUDY: CLAVICLE COMPLETE | | | | | BILAT | 01/05/08 | | | | | | 12:11:00HISTORY: | | | | | | Follow-up clavicle | | | | | | fractureCOMPARISON: | | | | | | 06/09/07FINDINGS:Comminut | | | | | | ed distal left clavicle | | | | | | fracture is again | | | | | | demonstrated.There is | | | | | | new superior | | | | | | displacement of the | | | | | | proximal fragment | | | | | | withincreased | | | | | | coracoclavicular | | | | | | interval, measuring 1.7 | | | | | | cm. There is | | | | | | nobridging ossification | | | | | | of the fracture. The | | | | | | clavicular | | | | | | andglenohumeral | | | | | | relationships are | | | | | | maintained. No new | | | | | | fractures areidentified. | | | | | | No soft tissue | | | | | | abnormality | | | | | | seen.IMPRESSION:Ununited | | | | | | distal clavicle | | | | | | fracture with new | | | | | | superior displacement | | | | | | ofthe proximal shaft.I | | | | | | have personally viewed | | | | | | this procedure/exam and | | | | | | reviewed this | | | | | | report.STATUS FINAL / | | | | | | Dr. AYAN INFANTE | | | | | | PENDING FINAL APPROVAL / | | | | | | Dr. NOAM Cooper | | | | | | [facility] | | | | | | - UNSIGNED / Dr. SANTACRUZ | | | | | | G NOÉ | | | | + + + + + + + + | Specimen | + + | | + + + +---------+ + + | Performing | Address | City/State/Zipcode | Phone Number | | Organization | | | | + +---------+ + + | [facility] | | | | | RADIOLOGY | | | | + +---------+ + + documented in this encounter Visit Diagnoses + + | Diagnosis | + + | Clavicle fracture - Primary Unspecified part of closed fracture of clavicle | + + documented in this encounter"
--- OUTSIDE RECORDS SUMMARY | ~2019-01-26 | XMS | Encounter Summary ---
Demographics + + + | Address | [address] | | | [place] [address] | + + + | Home Phone [...] + | Nurys Flores | ECON | [address] | | | | | [place], | | | | | [place] [address] | | + + + + + Care Team Providers + +------+ + | Care Trust Manager Name | Role | Phone | + +------+ + PCP | Unavailable | + +------+ + Encounter Details +--------+ + + + + | Date | Type | Department | Care Team | Description | +--------+ + + + + | 12/07/ | Results | Registration [id number] | Delores Hung MD | | | 2006 | Only | [address] | | | | | | Alex Mailcode: [id number] | | | | | | [place], [place] | | | | | | [address] | | | | | | [phone] | | | +--------+ + + + [...] + +--------+ + + + | X-RAY CHEST 1 VIEW | Routin | 12/11/2006 | | Results for this | | | e | 7:20 AM | | procedure are in the | | | | PDT | | results section. | + +--------+ + + + | X-RAY HAND 3 VIEWS | Routin | 12/07/2006 | | Results for this | | RIGHT | e | 11:59 AM | | procedure are in the | | | | PDT | | results section. | + +--------+ + + + documented in this encounter Results CHEST 1 VIEW (12/11/2006 7:20 AM PDT) + + + + + + | Component | Value | Ref Range | Performed | Pathologist | | | | | At | Signature | + + + + + + | CHEST, 1 | Radiologist 1: SHMUEL, | | | | | VIEW | Fede SINHAEXAM: AP | | | | | | chest. COMPARISON: | | | | | | Yesterday FINDINGS: | | | | | | Left chest tube remains | | | | | | in place. Aeration of | | | | | | theleft lung base | | | | | | continues to improve. | | | | | | There is no | | | | | | pneumothorax. Asmall | | | | | | residual left | | | | | | extrapleural hematoma | | | | | | remains present. | | | | | | Theright lung is | | | | | | clear. Bilateral rib | | | | | | fractures, left | | | | | | clavicularfracture and | | | | | | comminuted right humeral | | | | | | neck fracture are | | | | | | againnoted.IMPRESSION: | | | | | | 1. Continued improvement | | | | | | in aeration of the left | | | | | | lung. Stablesmall | | | | | | left extrapleural | | | | | | hematoma. | | | | + + + + + + + + | Specimen | + + | | + + + +---------+ + + | Performing | Address | City/State/Zipcode | Phone Number | | Organization | | | | + +---------+ + + | [facility] DEPARTMENT OF | | | | | RADIOLOGY | | | | + +---------+ + + HAND 3 VIEWS RIGHT (12/07/2006 11:59 AM PDT) + + + + + + | Component | Value | Ref Range | Performed | Pathologist | | | | | At | Signature | + + + + + + | HAND 3 | Radiologist 1: KARLA, | | | | | VIEWS RIGHT | NADIRA ROSENTHAL HAND, | | | | | | THREE VIEWS: | | | | | | 12/07/2006 Dictated | | | | | | 12/07/2006 COMPARISON: | | | | | | None. FINDINGS: | | | | | | There is no acute | | | | | | fracture or focal | | | | | | osseousdestruction.Soft | | | | | | tissue swelling is noted | | | | | | over the dorsum of the | | | | | | hand at thelevelof the | | | | | | metatarsophalangeal | | | | | | joints. There is mild | | | | | | negative | | | | | | ulnarvariance.IMPRESSION | | | | | | : 1. No acute | | | | | | fracture. 2. Soft | | | | | | tissue swelling over | | | | | | dorsum of hand. 3. | | | | | | Mild negative ulnar | | | | | | variance. END | | | | | | IMPRESSION: | | | | | | | | | | | | | | | | + + + + + + + + | Specimen | + + | | + + + +---------+ + + | Performing | Address | City/State/Zipcode | Phone Number | | Organization | | | | + +---------+ + + | [facility] DEPARTMENT OF | | | | | RADIOLOGY | | | | + +---------+ + + documented in this encounter Visit Diagnoses Not on filedocumented in this encounter"
--- OUTSIDE RECORDS SUMMARY | ~2019-01-26 | XMS | Encounter Summary ---
Demographics + + + | Address | [address] | | | [place] [address] | + + + | Home Phone [...] + | Nurys Flores | ECON | [address] | | | | | [place], | | | | | [place] [address] | | + + + + + Care Team Providers + +------+ + | Care K [employer] Professional Name | Role | Phone | + +------+ + PCP | Unavailable | + +------+ + Encounter Details +--------+ + + + + | Date | Type | Department | Care Team | Description | +--------+ + + + + | 12/11/ | Respiratory | Respiratory | Marilee Cuevas | | | 2006 | Therapy | Therapy [address] [facility] | [phone] | | | | | [address] | | | | | | Mailcode: UHS13 | | | | | | [place], [place] | | | | | | [address] | | | | | | [phone] | | | +--------+ + + + [...] | RESP CARE THERAPY | Routin | 12/12/2006 | | Results for this | | | e | 5:26 AM | | procedure are in the | | | | PDT | | results section. | + +--------+ + + + | RESP CARE THERAPY | Routin | 12/11/2006 | | Results for this | | | e | 6:00 PM | | procedure are in the | | | | PDT | | results section. | + +--------+ + + + | RESP CARE THERAPY | Routin | 12/11/2006 | | Results for this | | | e | 1:00 AM | | procedure are in the | | | | PDT | | results section. | + +--------+ + + + documented in this encounter Results RESP CARE THERAPY (12/12/2006 5:26 AM PDT) + + + + + + | Component | Value | Ref Range | Performed | Pathologist | | | | | At | Signature | + + + + + + | RESPIRATORY | Nasal cannula at 1 | | [facility] | | | CARE | LPM.Electronically | | RESPIRATORY | | | | Signed by: Anu Martinez, | | THERAPY | | | | SALES INSPECTOR | | | | + + + [...] + + | [facility] RES[facility] | [address] | [place], [place] | | | THERAPY | [facility] | [address] | | + + + + + | [facility] | [address] | [place], [place] | | | THERAPY | [facility] | [address] | | + + + + + RESP CARE THERAPY (12/11/2006 6:00 PM PDT) + + + + + + | Component | Value | Ref Range | Performed | Pathologist | | | | | At | Signature | + + + + + + | RESPIRATORY | Order_O2 Hourly NC day | | [facility] | | | CARE | reminder only therapy | | RESPIRATORY | | | | omitted.Reason : | | THERAPY | | | | Aerosol supply exchange | | | | | | complete. - Time | | | | | | due:Electronically | | | | | | Signed by: Diane Damian, | | | | | | SALES INSPECTOR | | | | + + + [...] + + | [facility] RES[facility] | [address] [facility] | [place], [place] | | | THERAPY | [address] | [address] | | + + + + + | [facility] RES[facility] | [address] [facility] | [place], [place] | | | THERAPY | [address] | [address] | | + + + + + RESP CARE THERAPY (12/11/2006 1:00 AM PDT) + + + + + + | Component | Value | Ref Range | Performed | Pathologist | | | | | At | Signature | + + + + + + | RESPIRATORY | : History and | | [facility] | | | CARE | Assessment: MULTIPLE | | RESPIRATORY | | | | TRAUMA,FRACTURED | | THERAPY | | | | THORPulmonary problems: | | | | | | Current problems | | | | | | include, none .Smoking | | | | | | history: The patient is | | | | | | a non-smoker.Results of | | | | | | recent Chest X-ray: | | | | | | were not available. No | | | | | | CXR has been takenwithin | | | | | | the last 72 hours.Pain: | | | | | | Patients pain assessed | | | | | | and was a 3 on a scale | | | | | | of 0-10.Oxygen | | | | | | requirement: 3 LPM with | | | | | | an oxygen saturation of | | | | | | 96 %.Heart rate: 114 | | | | | | beats per | | | | | | minuteRespiratory rate: | | | | | | 26 breaths per | | | | | | minuteTemperature: 37.2 | | | | | | ? | | | | | | C.Breathsounds:crackles | | | | | | diminished .Cough and | | | | | | sputum | | | | | | production:Patient had | | | | | | no cough at this | | | | | | time.Treatments GivenNo | | | | | | therapy indicated at | | | | | | this time.Respiratory | | | | | | Acuity and Protocol | | | | | | PlanA respiratory | | | | | | evaluation has been | | | | | | completed. Based on this | | | | | | assesment Notherapy is | | | | | | indicated the protocol | | | | | | is | | | | | | discontinued.Electronica | | | | | | lly Signed by: Anu | | | | | | MAK Martinez | | | | + + + [...] [facility] | [address] | [place], [place] | | | THERAPY | [address] | [address] | | + + + + + | [facility] | [address] | [place], [place] | | | THERAPY | [address] | [address] | | + + + + + documented in this encounter Visit Diagnoses Not on filedocumented in this encounter"
--- OUTSIDE RECORDS SUMMARY | ~2019-01-26 | XMS | Encounter Summary ---
Demographics + + + | Address | [address] | | | [place] [address] | + + + | Home Phone | | + + + | Preferred Language | Unknown | + + + | Marital Status | Single | + + + | Congregational Affiliation | EPI | + + + | Race | White | + + + | Ethnic Group | Not or | + + + Author + + + | Author | [facility] | + + + | Organization | [facility] | + + + | Address | Unknown | + + + | Phone | Unavailable | + + + Support + + + + + | Name | Relationship | Address | Phone | + + + + + | Nurys Flores | ECON | [address] | | | | | [place], | | | | | [place] [address] | | + + + + + Care Team Providers + +------+ + | Care Beer Runner Name | Role | Phone | + [...] | +--------+ + + + + | 03/20/ | Telephone | Orthopaedics at | Herzberg, Victor Manuel, MD | Other | | 2007 | | [facility] [address] [facility] | | | | | | [address] | | | | | | Mailcode: [address] | | | | | | Physicianmanny Garcia | | | | | | [place], [place] | | | | | | [address] | | | | | | [phone] | | | +--------+ + + + [...]
--- OUTSIDE RECORDS SUMMARY | ~2019-01-26 | XMS | Encounter Summary ---
Demographics + + + | Address | [address] | | | [place] [address] | + + + | Home Phone | | + + + | Preferred Language | Unknown | + + + | Marital Status | Single | + + + | Episcopalian Affiliation | EPI | + + + | Race | White | + + + | Ethnic Group | Not or | + + + Author + + + | Author | [facility] | + + + | Organization | [facility] | + + + | Address | Unknown | + + + | Phone | Unavailable | + + + Support + + + + + | Name | Relationship | Address | Phone | + + + + + | Nurys Flores | ECON | [address] | | | | | [place], | | | | | [place] [address] | | + + + + + Care Team Providers + +------+ + | Care Sample Color Maker Name | Role | Phone | + +------+ + PCP | Unavailable | + +------+ + Encounter Details +--------+ + + + + | Date | Type | Department | Care Team | Description | +--------+ + + + + | 12/08/ | Results | Registration [address] | Stephanie Hart MD | | | 2006 | Only | [address] | [address] | | | | | [place] Mailcode: [id number] | [place], | | | | | [place], [place] | [place] [address] | | | | | [address] | | | | | | [phone] | | | +--------+ + + + [...] + | X-RAY CHEST 1 VIEW | Specif | 12/08/2006 | | Results for this | | | ic | 6:23 AM | | procedure are in the | | | (Rad | PDT | | results section. | | | orders | | | | | | only) | | | | + +--------+ + + + documented in this encounter Results CHEST 1 VIEW (12/08/2006 6:23 AM PDT) + + + + + + | Component | Value | Ref Range | Performed | Pathologist | | | | | At | Signature | + + + + + + | CHEST, 1 | Radiologist 1: SUMMER, | | | | | ALEJANDRINA | KAY Vela, | | | | | | M.D.-Radiologist 2: | | | | | | Shon GRANGER, | | | | | | M.D.EXAM: AP chest. | | | | | | COMPARISON: Yesterday | | | | | | HISTORY: Trauma | | | | | | FINDINGS: Support | | | | | | equipment is unchanged. | | | | | | Left distal | | | | | | displacedclavicular | | | | | | fracture, right proximal | | | | | | humeral metaphysis | | | | | | comminutedfracture, and | | | | | | bilateral rib fractures | | | | | | as previously noted. | | | | | | Leftapical fluid | | | | | | collection unchanged. | | | | | | The cardiac silhouette | | | | | | isnormal. Increased | | | | | | intravascular volume is | | | | | | present. | | | | | | Mediastinalcontour and | | | | | | density along the | | | | | | aortic arch is slightly | | | | | | improved,but does remain | | | | | | greater than | | | | | | normal.Mediastinal | | | | | | hematoma in the region | | | | | | of the aortic arch | | | | | | remains apossibility. | | | | | | Mild scattered | | | | | | atelectasis are present | | | | | | within thelower | | | | | | lobes.IMPRESSION: Mild | | | | | | worsening of bilateral | | | | | | dependent atelectasis. | | | | | | Possiblemediastinal | | | | | | hematoma in the region | | | | | | of the aortic arch. | | | | + + + + + + + + | Specimen | + + | | + + + +---------+ + + | Performing | Address | City/State/Zipcode | Phone Number | | Organization | | | | + +---------+ + + | [facility] DEPARTMENT OF | | | | | RADIOLOGY | | | | + +---------+ + + documented in this encounter Visit Diagnoses Not on filedocumented in this encounter"
--- OUTSIDE RECORDS SUMMARY | ~2019-01-26 | XMS | Encounter Summary ---
Demographics + + + | Address | [address] | | | [place] [address] | + + + | Home Phone | | + + + | Preferred Language | Unknown | + + + | Marital Status | Single | + + + | Latter Day Affiliation | EPI | + + + | Race | White | + + + | Ethnic Group | Not or | + + + Author + + + | Author | [facility] | + + + | Organization | [facility] | + + + | Address | Unknown | + + + | Phone | Unavailable | + + + Support + + + + + | Name | Relationship | Address | Phone | + + + + + | Nurys Flores | ECON | [address] | | | | | [place], | | | | | [place] [address] | | + + + + + Care Team Providers + +------+ + | Care Adult Basic Education Instructor Name | Role | Phone | + [...] | | | | | internal | [place], [place] | [address] | | | | | orthopedic | [address] | Physician's | | | | | device, | | Pavilion | | | | | implant, and | | [place], [place] | | | | | graft s/p | | [phone] | | | | | left | | Phone: | | | | | Artis | | [phone] | | | | | cc ligament | | Fax: | | | | | reconstructi | | [phone] | | | | | on | | | | | | | Painful | | | | | | | hardware | | | | | | | Procedures | | | | | | | MT REMOVAL | | | | | | [...] Seren[place] | | | | | | [place], [place] | | | | | | [address] | | | | | | [phone] | | | +--------+---------+ + + + [...] surgeries scheduled to take place on the [place] at the [facility]: Surgeries scheduled in the [facility] ([address] [place] [address]): registration is located on the 4th floor of [facility] (Day Surgery). Surgeries scheduled in the [facility]: registration is located on the 9th floor. Surgeries scheduled in [facility]: registration is located on the 6th floor. Surgeries scheduled in the [facility]: registration is located i n the [facility] on the first floor. For surgeries scheduled to take place at the [facility]: registration is l [...] If you use specialized medical equipment at [facility], please check with your provider before bringing [...] surgeries scheduled to take place on the [place] at the [facility]: Surgeries scheduled in the [facility] ( North): registration is located on the 4th floor of [facility] (Day Surgery). Surgeries scheduled in the [facility]: registration is located on the 9th floor. Surgeries scheduled in [facility]: registration is located on the 6th floor. Surgeries scheduled in the [facility]: registration is located i n the [facility] on the first floor. For surgeries scheduled to take place at the [facility]: registration is l [...] If you use specialized medical equipment at [facility], please check with your provider before bringing [...] resident s note. Victor Manuel Crowley M.D. [facility], Trauma oque Santana MD - [...]
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
--- OUTSIDE RECORDS SUMMARY | ~2019-01-26 | XMS | Encounter Summary ---
Demographics + + + | Address | [address] | | | [place] [address] | + + + | Home Phone | | + + + | Preferred Language | Unknown | + + + | Marital Status | Single | + + + | Tenriism Affiliation | EPI | + + + | Race | White | + + + | Ethnic Group | Not or | + + + Author + + + | Author | [facility] | + + + | Organization | [facility] | + + + | Address | Unknown | + + + | Phone | Unavailable | + + + Support + + + + + | Name | Relationship | Address | Phone | + + + + + | Nurys Flores | ECON | [address] | | | | | [place], | | | | | [place] [address] | | + + + + + Care Team Providers + +------+ + | Care Street Railway Line Installer Name | Role | Phone | + [...] | | | | | other | [place], [place] | [address] | | | | | specified | [address] | Physician's | | | | | sites of | | [facility] | | | | | shoulder and | | [place], [place] | | | | | upper arm | | [address] | | | | | left distal | | Phone: | | | | | clavicle | | [phone] | | | | | nonuion wiht | | Fax: | | | | | medial | | [phone] | | | | | coracoclavic | | | | | | | ular | | | | | | | ligament | | | | | | | rupture | | | | | | | Procedures | | | | | | | ND PART | | | | | | | EXCIS | | | | | | | CLAVICLE [place] | | | | | | | PARTIAL | | | | | | | REMOVAL, | | | | | | | CLAVICLE [place] | | | | | | | [...] Jose | | | | | | [place], [place] | | | | | | [address] | | | | | | [phone] | | | +--------+---------+ + + + [...] pack of cigarettes day and no melania rosanne on Chantix. She also sustained a 4 [...] injury. She is engaed and lives in [place]. Physical Examination: Patient is alert and oriented [...] + + | Performing | Address | City/State/[facility] | Phone Number | | Organization | | | | + +---------+ + + | [facility] DEPARTMENT OF | | | | | RADIOLOGY | | | | + +---------+ + + documented in this encounter Visit Diagnoses + + | Diagnosis | + + | Clavicle fracture - Primary Unspecified part of closed fracture of clavicle | + + documented in this encounter
--- OUTSIDE RECORDS SUMMARY | ~2019-01-26 | XMS | Encounter Summary ---
Demographics + + + | Address | [address] | | | [place] [address] | + + + | Home Phone | | + + + | Preferred Language | Unknown | + + + | Marital Status | Single | + + + | Yazidi Affiliation | EPI | + + + | Race | White | + + + | Ethnic Group | Not or | + + + Author + + + | Author | [facility] | + + + | Organization | [facility] | + + + | Address | Unknown | + + + | Phone | Unavailable | + + + Support + + + + + | Name | Relationship | Address | Phone | + + + + + | Nurys Flores | ECON | [phone] | | | | | [place], | | | | | [place] [address] | | + + + + + Care Team Providers + +------+ + | Care Management Analyst Name | Role | Phone | + +------+ + PCP | Unavailable | + +------+ + Encounter Details +--------+ + + + + | Date | Type | Department | Care Team | Description | +--------+ + + + + | 12/07/ | Results | Registration [id number] | Wilton Phelps MD | | | 2006 | Only | [address] | [address] | | | | | Alex Mailcode: [id number] | [address] | | | | | [place], [place] | [place] [address] | | | | | [address] | | | | | | [phone] | | | +--------+ + + + [...] X-RAY CHEST 1 VIEW | Routin | 12/07/2006 | | Results for this | | | e | 5:38 AM | | procedure are in the | | | | PDT | | results section. | + +--------+ + + + documented in this encounter Results CHEST 1 VIEW (12/07/2006 5:38 AM PDT) + + + + + + | Component | Value | Ref Range | Performed | Pathologist | | | | | At | Signature | + + + + + + | CHEST, 1 | Radiologist 1: JEFERSON, | | | | | VIEW | LOUANN Cruz M.D.ONE-VIEW | | | | | | CHEST: 12/07/2006, | | | | | | 0534 HOURS Dictated | | | | | | 12/07/2006 FINDINGS: | | | | | | AP portable | | | | | | examination without | | | | | | comparison shows | | | | | | alarge-bore tube in the | | | | | | left pleural space. | | | | | | There is widening of | | | | | | theupper mediastinum to | | | | | | the left with an | | | | | | epipleural cap | | | | | | suggestingsuperior | | | | | | mediastinal hemorrhage, | | | | | | probably venous. I | | | | | | cannot detect | | | | | | anypneumothorax. There | | | | | | is a minimal amount of | | | | | | air in the left | | | | | | lateralchest wall. An | | | | | | endotracheal tube | | | | | | extends to within 6 cm | | | | | | of the jose manuel. | | | | | | Anasogastric tube ends | | | | | | in the gastric fundus. | | | | | | The diaphragms are | | | | | | unremarkable. No | | | | | | displaced fractures of | | | | | | the left rib cage are | | | | | | identified, but thereare | | | | | | slightly displaced | | | | | | posterior fractures of | | | | | | the right 3rd and | | | | | | 4thribs. A comminuted | | | | | | fracture involves the | | | | | | very proximal right | | | | | | humerus, andthere is | | | | | | suggestion of comminuted | | | | | | fracturing of the outer | | | | | | leftclavicle. | | | | | | IMPRESSION: 1. Left | | | | | | upper mediastinal | | | | | | hemorrhage. 2. Support | | | | | | devices as described. | | | | | | 3. No demonstrable | | | | | | pneumothorax. 4. Right | | | | | | rib fractures and | | | | | | fracturing of the left | | | | | | clavicle and | | | | | | righthumerus as | | | | | | described. END | | | | | | IMPRESSION: | | | | + + + + + + + + | Specimen | + + | | + + + +---------+ + + | Performing | Address | City/State/Zipcode | Phone Number | | Organization | | | | + +---------+ + + | [facility] DEPARTMENT OF | | | | | RADIOLOGY | | | | + +---------+ + + documented in this encounter Visit Diagnoses Not on filedocumented in this encounter"
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
--- OUTSIDE RECORDS SUMMARY | ~2019-01-26 | XMS | Clinical Summary ---
Demographics + + + | Address | [address] | | | [place] [address] | + + + | Home Phone [...] + | Nurys Flores | ECON | [phone] | | | | | [place], | | | | | [place] [address] | | + + + + + Care Team Providers + +------+ + | Care Form Tamping Machine Operator Name | Role | Phone | + +------+ + PCP | Unavailable | + +------+ + Source Comments ROSIE is fully live on both [facility] Ambulatory and [facility] InPatient.[facility] Allergies + + + + + + [...]
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
--- OUTSIDE RECORDS SUMMARY | ~2019-01-26 | XMS | Encounter Summary ---
Demographics + + + | Address | [address] | | | [place] [address] | + + + | Home Phone | | + + + | Preferred Language | Unknown | + + + | Marital Status | Single | + + + | Jew Affiliation | EPI | + + + | Race | White | + + + | Ethnic Group | Not or | + + + Author + + + | Author | [facility] | + + + | Organization | [facility] | + + + | Address | Unknown | + + + | Phone | Unavailable | + + + Support + + + + + | Name | Relationship | Address | Phone | + + + + + | Nurys Flores | ECON | [address] | | | | | [place], | | | | | [place] [address] | | + + + + + Care Team Providers + +------+ + | Care Electronic Pagination System Operator Name | Role | Phone | + +------+ + PCP | Unavailable | + +------+ + Encounter Details +--------+ + + + + | Date | Type | Department | Care Team | Description | +--------+ + + + + | 12/10/ | Results | Registration 1 | Juancarlos, | | | 2006 | Only | [address] | Rm Moreno MD [place] | | | | | [address] Mailcode: [id number] | [facility] | | | | | [place] [address] | | | | | [address] | [address] | | | | | [phone] | [place] [address] | | +--------+ + + + + [...]
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
--- OUTSIDE RECORDS SUMMARY | ~2019-01-26 | XMS | Encounter Summary ---
Demographics + + + | Address | [address] | | | [place] [address] | + + + | Home Phone | | + + + | Preferred Language | Unknown | + + + | Marital Status | Single | + + + | Anabaptism Affiliation | EPI | + + + [...] + | Nurys Flores | ECON | [address] | | | | | [place], | | | | | [place] [address] | | + + + + + Care Team Providers + +------+ + | Care Clinical Nutritionist Name | Role | Phone | + [...] [address] | | | | | | [place], [place] | | | | | | [address] | | | | | | [phone] | | | +--------+ + + + [...]
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
--- OUTSIDE RECORDS SUMMARY | ~2019-01-26 | XMS | Encounter Summary ---
Demographics + + + | Address | [address] | | | [place] [address] | + + + | Home Phone [...] Author + + + | Author | [facility] | + + + | Organization | [facility] | + + + | Address | Unknown | + + + | Phone | Unavailable | + + + Support + + + + + | Name | Relationship | Address | Phone | + + + + + | Nurys Flores | ECON | [phone] | | | | | [place], | | | | | [place] [address] | | + + + + + Care Team Providers + +------+ + | Care Computer Game Programmer Name | Role | Phone | + +------+ + | Juanjo Ro MD | PCP | | + +------+ + Encounter Details +--------+ + + + + | Date | Type | Department | Care Team | Description | +--------+ + + + + | 08/02/ | Hospital | Diagnostic | | | | 2008 | Encounter | [facility] at [facility] | | | | | | [address] | | | | | | [place] Mailcode: | | | | | | [address] | | | | | | [place], | | | | | | [place] [address] | | | | | | [phone] | | | +--------+ + + + [...] + + documented as of this encounter Medications at Time of Discharge + + + +---------+--------+ + | Medication | Sig | Dispensed | Refills | Start | End Date | | | | | | Date | | + + + +---------+--------+ + | CALCIUM ORAL | twice a day | | 0 | | | + + + +---------+--------+ + | MULTIVITAMINS OR | Take by mouth once | | 0 | | | | | daily. | | | | | + + + +---------+--------+ + | | Take 1 Tab by mouth | | 0 | | | | oxycodone-acetaminop | every four hours as | | | | | | hen 5-325 mg Oral | needed Not to exceed | | | | | | Tablet | 12 tablets per any | | | | | | | 24 hour period. | | | | | + + + +---------+--------+ + | STOOL SOFTENER OR | Take by mouth once | | 0 | | | | | daily. | | | | | + + + +---------+--------+ + | VITAMIN D OR | one pill in the | | 0 | | | | | morning | | | | | + + + +---------+--------+ + documented as of this encounter Plan of Treatment Not on filedocumented as of this encounter Procedures + +--------+ + + + | Procedure Name | Priori | Date/Time | Associated Diagnosis | Comments | | | ty | | | | + +--------+ + + + | X-RAY SHOULDER 3+ | Routin | 08/02/2008 | Closed Fracture of | Results for this | | VIEWS RIGHT | e | 3:51 PM | Proximal End of | procedure are in the | | | | PDT | Humerus | results section. | + +--------+ + + + documented in this encounter Results X-RAY SHOULDER 3+ VIEWS RIGHT (08/02/2008 3:51 PM PDT) + + + + + + | Component | Value | Ref Range | Performed | Pathologist | | | | | At | Signature | + + + + + + | SHOULDER 3+ | Med Rec No: [id number] | | | | | VIEWS | Name: | | | | | RIGHT | FORTUNATO LEONG | | | | | | Birthday: 1965 | | | | | | Sex: F | | | | | | Alias:Patient Location: | | | | | | [id number]: Outpatient | | | | | | ActiveOrdering | | | | | | Physician: THOMAS | | | | | | Fede [id number] | | | | | | SHOULDER 3 VIEWS RIGHT | | | | | | completed on 08/02/2008 | | | | | | 3:51 PMAccession # | | | | | | [id number]:RIGHT | | | | | | SHOULDER, [...] ARCE | | | | | | SCHMABARRETTSTATUS | | | | | | PRELIMINARY [...] | | + +---------+ + + | [facility] DEPARTMENT OF | | | [...]
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
--- OUTSIDE RECORDS SUMMARY | ~2019-01-26 | XMS | Encounter Summary ---
Demographics + + + | Address | [address] | | | [place] [address] | + + + | Home Phone [...] Author + + + | Author | [facility] | + + + | Organization | [facility] | + + + | Address | Unknown | + + + | Phone | Unavailable | + + + Support + + + + + | Name | Relationship | Address | Phone | + + + + + | Nurys Flores | ECON | [id number] | | | | | [place], | | | | | [place] [address] | | + + + + + Care Team Providers + +------+ + | Care Finishing Range Operator Name | Role | Phone | + +------+ + PCP | Unavailable | + +------+ + Reason for Visit + + + | Reason | Comments | + + + | Erroneous Encounter | | | - Disregard | | + + + Encounter Details +--------+---------+ + + + | Date | Type | Department | Care Team | Description | +--------+---------+ + + + | 09/20/ | Office | Orthopaedics at | Victor Manuel Crowley MD | Shoulder Pain | | 2006 | Visit | [facility] [address] | | (Primary Dx); NO | | | | [address] | | DIAGNOSIS RECEIVED | | | | Mailcode: [id number] | | | | | | [facility] | | | | | | [place], [place] | | | | | | [address] | | | | | | [phone] | | | +--------+---------+ + + + Social History + + + +--------+ + | Tobacco Use | Types | Packs/Day | Years | Date | | | | | Used | | + + + +--------+ + | Former Smoker | Cigarettes | 1 | 25 | Quit: 12/09/2006 | + + + +--------+ + + + +---------+ + | Alcohol Use [...] + + documented as of this encounter Victor Manuel Noel - 12/31/2006 11:44 AM PDTThis encounter was opened in error. Please disrega rd this note. documented i n this encounter Plan of Treatment Not on filedocumented as of this encounter Visit Diagnoses + + | Diagnosis | + + | Shoulder pain - Primary Pain in joint, shoulder region | + + | NO DIAGNOSIS RECEIVED | + + documented in this encounter"
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
--- OUTSIDE RECORDS SUMMARY | ~2019-01-26 | XMS | Encounter Summary ---
Demographics + + + | Address | [address] | | | [place] [address] | + + + | Home Phone | | + + + | Preferred Language | Unknown | + + + | Marital Status | Single | + + + | Pentecostal Affiliation | EPI | + + + | Race | White | + + + | Ethnic Group | Not or | + + + Author + + + | Author | [facility] | + + + | Organization | [facility] | + + + | Address | Unknown | + + + | Phone | Unavailable | + + + Support + + + + + | Name | Relationship | Address | Phone | + + + + + | Nurys Flores | ECON | [id number] | | | | | [place], | | | | | [place] [address] | | + + + + + Care Team Providers + +------+ + | Care Short Piece Handler Name | Role | Phone | + +------+ + | Svetlana Cedillo | PCP | | | MD | | | + +------+ + Encounter Details +--------+ + + + + | Date | Type | Department | Care Team | Description | +--------+ + + + + | 05/02/ | Child Support Specialist | Orthopaedics at | Victor Manuel Crowley MD | Clavicle Fracture | | 2008 | | [facility] [address] | | (Primary Dx) | | | | [address] | | | | | | Mailcode: [id number] | | | | | | [facility] | | | | | | [place], [place] | | | | | | [address] | | | | | | [phone] | | | +--------+ + + + [...] + | X-RAY CLAVICLE | Routin | 05/03/2008 | Clavicle Fracture | Results for this | | BILATERAL | e | 1:10 PM | | procedure are in the | | | | PST | | results section. | + +--------+ + + + documented in this encounter Results X-RAY CLAVICLE COMPLETE (05/03/2008 1:10 PM PST) + + + + + + | Component | Value | Ref Range | Performed | Pathologist | | | | | At | Signature | + + + + + + | CLAVICLE | EXAM: AP | | | | | BILAT | clavicle.Comparison: | | | | | | 03/22/08.FINDINGS:Increa | | | | | | se the distal left | | | | | | clavicular fracture | | | | | | fragment | | | | | | andcoracoclavicular | | | | | | screw fixation is | | | | | | redemonstrated. There | | | | | | is up to 3mm lucency the | | | | | | coracoid around the | | | | | | threaded portion of the | | | | | | screw.The | | | | | | coracoclavicular | | | | | | distance remains | | | | | | unchanged. The 2 mm | | | | | | distancebetween the | | | | | | screw washer and | | | | | | adjacent clavicular | | | | | | cortex is unchanged. No | | | | | | hardware failure is | | | | | | identified. | | | | | | Visualized portions of | | | | | | thelungs are clear. | | | | | | Healed left anterior | | | | | | rib fractures are | | | | | | noted.IMPRESSION:Mild | | | | | | loosening around the | | | | | | threaded portion of the | | | | | | coracoclavicularfixation | | | | | | screw without change in | | | | | | alignment.I have | | | | | | personally viewed this | | | | | | procedure/exam and | | | | | | reviewed this | | | | | | report.Author: | | | | | | Fede JEANReviewer: | | | | | | MARIA BOTELLO M.D.STATUS | | | | | | FINAL / Dr. SIFUENTES | | | | | | AYANSTATUS PENDING FINAL | | | | | | APPROVAL / Dr. LEWIS | | | | | | MANDY PRELIMINARY - | | | | | | UNSIGNED / Dr. DEBBIE MARTINI | | | | + + + [...]
--- OUTSIDE RECORDS SUMMARY | ~2019-01-26 | XMS | Encounter Summary ---
Demographics + + + | Address | [address] | | | [place] [address] | + + + | Home Phone [...] + | Nurys Flores | ECON | [id number] | | | | | [place], | | | | | [place] [address] | | + + + + + Care Team Providers + +------+ + | Care Relationship Banker Name | Role | Phone | + [...] [address] | | | | | | [place], [place] | | | | | | [address] | | | +--------+ + + + [...]
--- OUTSIDE RECORDS SUMMARY | ~2019-01-26 | XMS | Encounter Summary ---
Demographics + + + | Address | [address] | | | [place] [address] | + + + | Home Phone [...] + + + | Author | [facility] | + + + | Organization | [facility] | + + + | Address | Unknown | + + + | Phone | Unavailable | + + + Support + + + + + | Name | Relationship | Address | Phone | + + + + + | Nurys Flores | ECON | [address] | | | | | [place], | | | | | [place] [address] | | + + + + + Care Team Providers + +------+ + | Care Purchase Request Editor Name | Role | Phone | + +------+ + PCP | Unavailable | + +------+ + Encounter Details +--------+ + + + + | Date | Type | Department | Care Team | Description | +--------+ + + + + | 12/07/ | Results | [facility] | Sandra Reddy MD | | | 2006 | Only | [facility] [address] | [address] | | | | | [address] | [address] | | | | | Mailcode: Center | [place], [place] | | | | | [facility] and | [address] | | | | | [facility] | [phone] | | | | | [place], [place] | | | | | | [address] | | | | | | [phone] | | | +--------+ + + + [...] + | X-RAY CHEST 1 VIEW | Priori | 12/12/2006 | | Results for this | | | ty | 6:40 AM | | procedure are in the | | | | PDT | | results section. | + +--------+ + + + | X-RAY CHEST 1 VIEW | Routin | 12/11/2006 | | Results for this | | | e | 9:58 PM | | procedure are in the | | | | PDT | | results section. | + +--------+ + + + | CTA CHEST WWO | Urgent | 12/09/2006 | | Results for this | | CONTRAST | | 5:05 PM | | procedure are in the | | | | PDT | | results section. | + +--------+ + + + | X-RAY CHEST 1 VIEW | Urgent | 12/09/2006 | | Results for this | | | | 6:10 AM | | procedure are in the | | | | PDT | | results section. | + +--------+ + + + | X-RAY CHEST 1 VIEW | Specif | 12/08/2006 | | Results for this | | | ic | 4:36 PM | | procedure are in the | | | (Rad | PDT | | results section. | | | orders | | | | | | only) | | | | + +--------+ + + + | X-RAY CHEST 1 VIEW | Specif | 12/08/2006 | | Results for this | | | ic | 9:02 AM | | procedure are in the | | | (Rad | PDT | | results section. | | | orders | | | | | | only) | | | | + +--------+ + + + | BLOOD BANK HOLD TUBE | Routin | 12/07/2006 | | Results for this | | - DON | e | 8:38 AM | | procedure are in the | | | | PDT | | results section. | | T PROCESS | | | | | + +--------+ + + + documented in this encounter Results CHEST 1 VIEW (12/12/2006 6:40 AM PDT) + + + + + [...] | | | | | | The lateral basilar | | | | | | portion of the left | | | | | | pneumothoraxis no longer | | | | | | visualized. There is | | | | | | a persistent small left | | | | | | apicalcomponent of the | | | | | | pneumothorax. Left | | | | | | apical pleural | | | | | | thickening oreffusion is | | | | | | unchanged. Bibasilar | | | | | | atelectasis is improved. | | | | | | Thereis no edema. | | | | | | Cardiac and | | | | | | mediastinal contours | | | | | | remain withinnormal | | | | | | limits. Left-sided rib | | | | | | fractures, left | | | | | | clavicular fractureand | | | | | | right humeral neck | | | | | | fracture are again | | | | | | noted.IMPRESSION: 1. | | | | | | Decrease in size of the | | | | | | left pneumothorax with a | | | | | | tiny apicalcomponent | | | | | | remaining. 2. | | | | | | Improving aeration of | | | | | | bilateral lung bases. | | | | | | | [...] | | | + +---------+ + + CHEST 1 VIEW (12/11/2006 9:58 PM PDT) + + + + + [...] COMPARISON: | | | | | | Earlier today FINDINGS: | | | | | | The left apical and | | | | | | lateral basilar | | | | | | pneumothorax isunchanged | | | | | | in size. Bibasilar | | | | | | atelectasis is | | | | | | unchanged. There areno | | | | | | new or developing areas | | | | | | of consolidation. | | | | | | There is no | | | | | | edema.Cardiac and | | | | | | mediastinal contours are | | | | | | stable. Multiple | | | | | | left-sidedrib fractures | | | | | | are again | | | | | | noted.IMPRESSION: 1. | | | | | | Stable left apical and | | | | | | lateral basilar | | | | | | pneumothorax. | | | | + + + + + + + + | Specimen | + + | | + + + +---------+ + + | Performing | Address | City/State/Zipcode | Phone Number | | Organization | | | | + +---------+ + + | [facility] OF | | | | | RADIOLOGY | | | | + +---------+ + + CT CTA CHEST WWO CONTRAST (12/09/2006 5:05 PM PDT) + + + + + + | Component | Value | Ref Range | Performed | Pathologist | | | | | At | Signature | + + + + + + | CT CTA | Radiologist 1: SUMMER, | | | | | CHEST WWO | KAY Vela | | | | | CONTRAST | M.DKaia-Radiologist 2: | | | | | | Shon GRANGER, | | | | | | M.DKaiaCOMPUTED TOMOGRAPHY | | | | | | ANGIOGRAPHY CHEST | | | | | | 12/09/06 INDICATION: | | | | | | Evaluate aortic injury, | | | | | | history of trauma. | | | | | | COMPARISON: Plain film | | | | | | same day TECHNIQUE: | | | | | | Overlapping 2 mm thick | | | | | | axial images were | | | | | | obtained fromthe | | | | | | thoracic inlet through | | | | | | the upper abdomen | | | | | | following the | | | | | | rapidintravenous bolus | | | | | | of contrast (100 mL | | | | | | Omnipaque). Imaging | | | | | | wastimed using bolus | | | | | | tracking for optimal | | | | | | enhancement of the | | | | | | aorta.Reconstructions | | | | | | were generated on an | | | | | | independent workstation | | | | | | andinterpreted as well. | | | | | | FINDINGS:There is no | | | | | | significant axillary, | | | | | | mediastinal, or | | | | | | hilarlymphadenopathy. | | | | | | The heart is normal in | | | | | | size. The aortic arch | | | | | | isleft-sided. There are | | | | | | bilateral pleural | | | | | | effusions right | | | | | | greaterthan left that | | | | | | measures zero [place] | | | | | | units. A left-sided | | | | | | chesttube is in place | | | | | | with the tip at the left | | | | | | apex, and there | | | | | | isassociated free air in | | | | | | the soft tissues. A | | | | | | tiny | | | | | | anteriorpneumothorax is | | | | | | present on the left as | | | | | | well. There | | | | | | areconsolidative | | | | | | opacities in the | | | | | | dependent areas of the | | | | | | left lungconsistent with | | | | | | atelectasis and | | | | | | contusion. There is | | | | | | nopericardial effusion. | | | | | | The pulmonary arteries | | | | | | are well-enhanced,and | | | | | | no filling defects are | | | | | | present to suggest | | | | | | pulmonary embolus.There | | | | | | are no irregularities of | | | | | | the visualized portions | | | | | | of thegreat vessels. | | | | | | There is a displaced | | | | | | fracture splitting the | | | | | | manubrium with theright | | | | | | half of the manubrium | | | | | | mildly displaced | | | | | | posteriorly. Thereis a | | | | | | sternal fracture is | | | | | | well that is | | | | | | nondisplaced. Left | | | | | | distalclavicular | | | | | | fracture is noted. | | | | | | There are multiple rib | | | | | | fracturesincluding: The | | | | | | right-sided posterior | | | | | | third and fourth, | | | | | | andleft-sided lateral | | | | | | the second, third, | | | | | | fourth and fifth. The | | | | | | firstleft rib has a | | | | | | complete fracture of the | | | | | | anterior portion and | | | | | | isdisplaced posteriorly | | | | | | very near the left | | | | | | subclavian artery. | | | | | | Thereis no free | | | | | | extravasation of | | | | | | contrast in the | | | | | | proximity of | | | | | | thesefractures, but | | | | | | there is a small | | | | | | superior mediastinum | | | | | | hematoma inrelation to | | | | | | these fractures which | | | | | | likely represents venous | | | | | | bloodas the great | | | | | | vessels are intact and | | | | | | there is no | | | | | | extravasation | | | | | | ofcontrast. There are | | | | | | no fractures noted | | | | | | within the thoracic | | | | | | andlumbar spine. Images | | | | | | of the upper abdomen | | | | | | were obtained in early | | | | | | arteriel phasebut show | | | | | | no abnormality of the | | | | | | visualized portions of | | | | | | the liver,spleen, or | | | | | | pancreas. The superior | | | | | | renal poles | | | | | | demonstratesymmetric | | | | | | cortical | | | | | | enhancement.IMPRESSION: | | | | | | 1. Multiple trauma | | | | | | related fractures as | | | | | | described. Proximity | | | | | | ofthe left first rib | | | | | | anterior fracture, | | | | | | manubrial fracture, | | | | | | andsuperior mediastinal | | | | | | hematoma are concerning | | | | | | for injury of theleft | | | | | | brachiocephalic | | | | | | vein/subclavian vein. | | | | | | No activeextravasation | | | | | | of contrast is | | | | | | appreciated. | | | | | | Left-sided chest | | | | | | tubeis in place. 2. | | | | | | Simple layering | | | | | | pleural fluid on the | | | | | | right. | | | | | | Dependent,enhancing | | | | | | left-sided pulmonary | | | | | | consolidation consistent | | | | | | withatelectasis. | | | | | | Results were reported to | | | | | | the [facility] resident on | | | | | | call at 9:14 a.m. | | | | + + + + + + + + | Specimen | + + | | + + + +---------+ + + | Performing | Address | City/State/Zipcode | Phone Number | | Organization | | | | + +---------+ + + | [facility] | | | | | RADIOLOGY | | | | + +---------+ + + CHEST 1 VIEW (12/09/2006 6:10 AM PDT) + + + + + + | Component | Value | Ref Range | Performed | Pathologist | | | | | At | Signature | + + + + + + | CHEST, 1 | Radiologist 1: DEEPALI, | | | | | VIEW | Fede WADDELL-Radiologist | | | | | | 2: ERNESTINE MI | | | | | | FedeEXAM: AP chest. | | | | | | COMPARISON: Yesterday | | | | | | FINDINGS: There is a | | | | | | new large collection of | | | | | | pleural fluid alongthe | | | | | | lateral costal pleura | | | | | | extending to the apex. | | | | | | The mediastinumappears | | | | | | widened and dense. | | | | | | Multiple left-sided | | | | | | rib fractures | | | | | | arepresent. There is | | | | | | minimal atelectasis in | | | | | | the right | | | | | | lung.IMPRESSION: Widened | | | | | | and dense mediastinum | | | | | | with new large pleural | | | | | | fluidcollection, likely | | | | | | hematoma. Concern is | | | | | | for mediastinal | | | | | | hematomaand pleural | | | | | | hematoma. Recommend CT | | | | | | for further evaluation. | | | | | | Thesefindings were | | | | | | called to the resident | | | | | | caring for the patient | | | | | | at thetime of dictation. | | | | | | | | | | + + + + + + + + | Specimen | + + | | + + + +---------+ + + | Performing | Address | City/State/Zipcode | Phone Number | | Organization | | | | + +---------+ + + | [facility] | | | | | RADIOLOGY | | | | + +---------+ + + CHEST 1 VIEW (12/08/2006 4:36 PM PDT) + + + + + + | Component | Value | Ref Range | Performed | Pathologist | | | | | At | Signature | + + + + + + | CHEST, 1 | Radiologist 1: SUMMER, | | | | | ALEJANDRINA | KAY Vela | | | | | | MGina-Radiologist 2: | | | | | | ERNESTINE MI, | | | | | | M.ZionEXAM: AP chest. | | | | | | COMPARISON: Earlier | | | | | | today FINDINGS: | | | | | | Life-support apparatus | | | | | | is unchanged. There | | | | | | isincreased atelectasis | | | | | | at bilateral lung bases. | | | | | | Cardiac | | | | | | andmediastinal contours | | | | | | remain within normal | | | | | | limits. There is | | | | | | noedema or pneumothorax. | | | | | | Left chest tube has | | | | | | been removed.IMPRESSION: | | | | | | 1. Increased | | | | | | atelectasis at bilateral | | | | | | lung bases. | | | | + + + + + + + + | Specimen | + + | | + + + +---------+ + + | Performing | Address | City/State/Zipcode | Phone Number | | Organization | | | | + +---------+ + + | [facility] | | | | | RADIOLOGY | | | | + +---------+ + + CHEST 1 VIEW (12/08/2006 9:02 AM PDT) + + + + + + | Component | Value | Ref Range | Performed | Pathologist | | | | | At | Signature | + + + + + + | CHEST, 1 | Radiologist 1: SUMMER, | | | | | VIEW | KAY Vela M.D.EXAM: AP | | | | | | chest. COMPARISON: | | | | | | 12/08/06 6 a.m. | | | | | | INDICATION: Trauma | | | | | | FINDINGS: The | | | | | | position of the | | | | | | patient's tubes and | | | | | | lines areunchanged. | | | | | | Cardiac silhouette is | | | | | | normal. Mediastinal | | | | | | structuredemonstrates | | | | | | decreasing density | | | | | | around the aortic arch | | | | | | as well isdecreasing | | | | | | intravascular fluid | | | | | | volume. Pleural | | | | | | effusion isdecreased on | | | | | | the left side. | | | | | | Atelectasis has | | | | | | improved. There isno | | | | | | pulmonary edema. | | | | | | Multiple right-sided | | | | | | rib fractures and | | | | | | rightcomminuted humeral | | | | | | fracture is again noted. | | | | | | There is | | | | | | nopneumothorax on the | | | | | | left side. Left-sided | | | | | | chest tube | | | | | | isunchanged.IMPRESSION: | | | | | | No recurrent | | | | | | pneumothorax on the | | | | | | left. Improved lung | | | | | | aeration. | | | | + + + + + + + + | Specimen | + + | | + + + +---------+ + + | Performing | Address | City/State/Zipcode | Phone Number | | Organization | | | | + +---------+ + + | [facility]MENT OF | | | | | RADIOLOGY | | | | + +---------+ + + SPECIMEN COLLECTED, HELD (12/07/2006 8:38 AM PDT) + + + + + + | Component | Value | Ref Range | Performed | Pathologist | | | | | At | Signature | + + + + + + | SPECIMEN | Sample received with | | [facility] | | | COLLECTED, | adeq label/volume to | | DEPARTMENT | | | HELD | process | | OF | | | | | | PATHOLOGY | | + + + + + + + + | Specimen | + + | | + + + + + + + | Performing | Address | City/State/Zipcode | Phone Number | | Organization | | | | + + + + + | [facility] | [address] | [place] [address] | | | PATHOLOGY | [address] | | | + + + + + | [facility] | [address] | [place] [address] | | | PATHOLOGY | [address] | | | + + + + + documented in this encounter Visit Diagnoses Not on filedocumented in this encounter"
--- OUTSIDE RECORDS SUMMARY | ~2019-01-26 | XMS | Encounter Summary ---
Demographics + + + | Address | [address] | | | [place] [address] | + + + | Home Phone [...] Author + + + | Author | [facility] | + + + | Organization | [facility] | + + + | Address | Unknown | + + + | Phone | Unavailable | + + + Support + + + + + | Name | Relationship | Address | Phone | + + + + + | Nurys Flores | ECON | [address] | | | | | [place], | | | | | [place] [address] | | + + + + + Care Team Providers + +------+ + | Care Re Examiner Name | Role | Phone | + +------+ + PCP | Unavailable | + +------+ + Encounter Details +--------+ + + + + | Date | Type | Department | Care Team | Description | +--------+ + + + + | 12/11/ | Results | Registration [id number] | Tosha Jensen MD | | | 2006 | Only | [address] | [address] | | | | | [address] Mailcode: [id number] | [address] | | | | | [place], [place] | [place] [address] | | | | | [address] | [phone] | | | | | [phone] | | | +--------+ + + + [...] | + +--------+ + + + | CT HEAD WO CONTRAST | Routin | 12/12/2006 | | Results for this | | | e | 5:15 PM | | procedure are in the | | | | PDT | | results section. | + +--------+ + + + | X-RAY CHEST 1 VIEW | Routin | 12/11/2006 | | Results for this | | | e | 6:05 PM | | procedure are in the | | | | PDT | | results section. | + +--------+ + + + documented in this encounter Results CT HEAD WO CONTRAST (12/12/2006 5:15 PM PDT) + + + + + + | Component | Value | Ref Range | Performed | Pathologist | | | | | At | Signature | + + + + + + | CT HEAD WO | Radiologist 1: | | | | | CONTRAST | NIMA LONG. | | | | | | M.DKaia-Radiologist 2: | | | | | | Cedric ABDALLA, | | | | | | M.ZionEXAM: Noncontrast CT | | | | | | Head HISTORY: Scalp | | | | | | laceration TECHNIQUE: | | | | | | Noncontrast enhanced | | | | | | axial CT of the head was | | | | | | obtained. COMPARISON: | | | | | | None. FINDINGS: Multiple | | | | | | surgical ld are | | | | | | identified overlying the | | | | | | rightparietal soft | | | | | | tissues. The ventricular | | | | | | system, basilar | | | | | | cisternsand sulci have a | | | | | | normal appearance. No | | | | | | acute territorial | | | | | | infarctis appreciated. | | | | | | No evidence of a | | | | | | midline shift, mass | | | | | | effect,intra or extra | | | | | | axial hemorrhage. No | | | | | | focal | | | | | | parenchymalabnormalities | | | | | | identified. Air-fluid | | | | | | levels are identified | | | | | | within the sphenoid | | | | | | sinus andscattered | | | | | | ethmoid air cells. The | | | | | | mastoid air cells are | | | | | | wellpneumatized. The | | | | | | globes, orbits, regional | | | | | | soft tissues | | | | | | andcalvarium are | | | | | | unremarkable.IMPRESSION: | | | | | | 1. Air-fluid levels in | | | | | | the sphenoid and | | | | | | scattered | | | | | | ethmoidsinuses.2. No | | | | | | acute intracranial | | | | | | abnormalities. END OF | | | | | | IMPRESSION | | | | + + + + + + + + | Specimen | + + | | + + + +---------+ + + | Performing | Address | City/State/Zipcode | Phone Number | | Organization | | | | + +---------+ + + | [facility] DEPARTMENT OF | | | | | RADIOLOGY | | | | + +---------+ + + CHEST 1 VIEW (12/11/2006 6:05 PM PDT) + + + + + + | Component | Value | Ref Range | Performed | Pathologist | | | | | At | Signature | + + + + + + | CHEST, 1 | Radiologist 1: SHMUEL | | | | | VIEW | Fede SINHAEXAM: AP | | | | | | chest. COMPARISON: | | | | | | Earlier today FINDINGS: | | | | | | The left chest tube | | | | | | has been removed. | | | | | | There is asmall apical | | | | | | and lateral basilar | | | | | | pneumothorax. Left | | | | | | basilaratelectasis is | | | | | | stable. Cardiac and | | | | | | mediastinal contours | | | | | | remainnormal. Numerous | | | | | | left-sided rib | | | | | | fractures are again | | | | | | noted.IMPRESSION: 1. | | | | | | Small left | | | | | | pneumothorax after chest | | | | | | tube removal. | | | | | | Thesefindings were | | | | | | called to the patient's | | | | | | nurse at the time | | | | | | ofdictation. | | | | + + + [...]
--- OUTSIDE RECORDS SUMMARY | ~2019-01-26 | XMS | Encounter Summary ---
Demographics + + + | Address | [address] | | | [place] [address] | + + + | Home Phone | | + + + | Preferred Language | Unknown | + + + | Marital Status | Single | + + + | Christianity Affiliation | EPI | + + + | Race | White | + + + | Ethnic Group | Not or | + + + Author + + + | Author | [facility] | + + + | Organization | [facility] | + + + | Address | Unknown | + + + | Phone | Unavailable | + + + Support + + + + + | Name | Relationship | Address | Phone | + + + + + | Nurys Flores | ECON | [address] | | | | | [place], | | | | | [place] [address] | | + + + + + Care Team Providers + +------+ + | Care Manufacturer Name | Role | Phone | + +------+ + | Juanjo Ro MD | PCP | | + +------+ + Encounter Details +--------+ + + + + | Date | Type | Department | Care Team | Description | +--------+ + + + + | 12/30/ | Results | Orthopaedics at | Victor Manuel Crowley MD | | | 2006 | Only | [facility] [address] | | | | | | [address] | | | | | | Mailcode: [id number] | | | | | | Physician's Jose | | | | | | [place], [place] | | | | | | [address] | | | | | | [phone] | | | +--------+ + + + [...] | | + +---------+--------+ + + | GENERAL OUTSIDE | Imaging | Routin | | 12/30/2006 12:00 AM | | FILMS | | e | | PDT | + +---------+--------+ + + | GENERAL OUTSIDE | Imaging | Routin | | 12/30/2006 12:00 AM | | FILMS | | e | | PDT | + +---------+--------+ + + | GENERAL OUTSIDE | Imaging | Routin | | 12/30/2006 12:00 AM | | FILMS | | e | | PDT | + +---------+--------+ + + | GENERAL OUTSIDE | Imaging | Routin | | 12/30/2006 12:00 AM | | FILMS | | e | | PDT | + +---------+--------+ + + | GENERAL OUTSIDE | Imaging | Routin | | 12/30/2006 12:00 AM | | FILMS | | e | | PDT | + +---------+--------+ + + | GENERAL OUTSIDE | Imaging | Routin | | 12/30/2006 12:00 AM | | FILMS | | e | | PDT | + +---------+--------+ + + | GENERAL OUTSIDE | Imaging | Routin | | 01/03/2007 12:00 AM | | FILMS | | e | | PDT | + +---------+--------+ + + | GENERAL OUTSIDE | Imaging | Routin | | 01/03/2007 12:00 AM | | FILMS | | e | | PDT | + +---------+--------+ + + documented as of this encounter Visit Diagnoses Not on filedocumented in this encounter"
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
--- OUTSIDE RECORDS SUMMARY | ~2019-01-26 | XMS | Encounter Summary ---
Demographics + + + | Address | [address] | | | [place] [address] | + + + | Home Phone [...] + | Nurys Flores | ECON | [id number] | | | | | [place], | | | | | [place] [address] | | + + + + + Care Team Providers + +------+ + | Care End Polisher Name | Role | Phone | + +------+ + PCP | Unavailable | + +------+ + Encounter Details +--------+ + + + + | Date | Type | Department | Care Team | Description | +--------+ + + + + | 12/07/ | ED Progress | UNKNOWN DEPARTMENT | Report, Emergency | ED Progress Note | | 2006 | | [address] | Services | | | | Note-Bijan | [address] | | | | | kitty | [place], [place] | | | | | | [address] | | | +--------+ + + + [...]
--- OUTSIDE RECORDS SUMMARY | ~2019-01-26 | XMS | Encounter Summary ---
Demographics + + + | Address | [address] | | | [place] [address] | + + + | Home Phone [...] + | Nurys Flores | ECON | [address] | | | | | [place], | | | | | [place] [address] | | + + + + + Care Team Providers + +------+ + | Care Pediatric Speech Therapist Name | Role | Phone | + +------+ + | Juanjo Ro MD | PCP | | + +------+ + Encounter Details +--------+ + + + + | Date | Type | Department | Care Team | Description | +--------+ + + + + | 01/20/ | Ancillary | Registration [id number] | Victor Manuel Crowley MD | | | 2006 | Registratio | [address] | | | | | n | Alex Mailcode: [id number] | | | | | | [place], [place] | | | | | | [address] | | | | | | [phone] | | | +--------+ + + + [...]
--- OUTSIDE RECORDS SUMMARY | ~2019-01-26 | XMS | Encounter Summary ---
Demographics + + + | Address | [address] | | | [place] [address] | + + + | Home Phone [...] + + + | Author | [facility] | + + + | Organization | [facility] | + + + | Address | Unknown | + + + | Phone | Unavailable | + + + Support + + + + + | Name | Relationship | Address | Phone | + + + + + | Nurys Flores | ECON | [id number] | | | | | [place], | | | | | [place] [address] | | + + + + + Care Team Providers + +------+ + | Care Supervising Deputy Name | Role | Phone | + +------+ + PCP | Unavailable | + +------+ + Encounter Details +--------+ + + + + | Date | Type | Department | Care Team | Description | +--------+ + + + + | 12/09/ | Respiratory | Respiratory | Marilee Cuevas | | | 2006 | Therapy | Therapy [address] [facility] | [phone] | | | | | [address] | | | | | | Mailcode: [id number] | | | | | | [place], [place] | | | | | | [address] | | | | | | [phone] | | | +--------+ + + + [...] Morris, | | | | | | FLOOR MECHANIC | | | | + + + + + + + + | Specimen | + + | | + + + + + | Narrative | Performed At | + + + | Ordered by an unspecified provider. | [facility] | | | RESPIRAT[facility] | | | THERAPY | + + + + + + + + | Performing | Address | City/[facility]/Zipcode | Phone Number | | Organization | | | | + + + + + | [facility] | [address] | [place], [place] | | | THERAPY | [address] | [address] | | + + + + + | [facility] | [address] | [place], [place] | | | THERAPY | [address] | [address] | | + + + + + [...] [facility] | [address] | [place], [place] | | | THERAPY | [address] | [address] | | + + + + + | [facility] | [address] | [place], [place] | | | THERAPY | [facility] | [address] | | + + + + + [...] | | THERAPY | | | | FLOOR MECHANIC | | | | + + + [...] [facility] | [address] | [place], [place] | | | THERAPY | [address] | [address] | | + + + + + | [facility] | [address] | [place], [place] | | | THERAPY | [facility] | [address] | | + + + + + documented in this encounter Visit Diagnoses Not on filedocumented in this encounter"
--- OUTSIDE RECORDS SUMMARY | ~2019-01-26 | XMS | Encounter Summary ---
Demographics + + + | Address | [address] | | | [place] [address] | + + + | Home Phone | | + + + | Preferred Language | Unknown | + + + | Marital Status | Single | + + + | Religion Affiliation | EPI | + + + [...] + | Nurys Flores | ECON | [address] | | | | | [place], | | | | | [place] [address] | | + + + + + Care Team Providers + +------+ + | Care Miter Sawyer Name | Role | Phone | + +------+ + PCP | Unavailable | + +------+ + Encounter Details +--------+ + + + + | Date | Type | Department | Care Team | Description | +--------+ + + + + | 12/11/ | Respiratory | Respiratory | Marilee Cuevas | | | 2006 | Therapy | Therapy [address] [facility] | [phone] | | | | | [address] | | | | | | Mailcode: [id number] | | | | | | [place], [place] | | | | | | [address] | | | | | | [phone] | | | +--------+ + + + [...] | | THERAPY | | | | TRAVEL AGENCY MANAGER | | | | + + + [...] [facility] | [address] | [place], [place] | | | THERAPY | [facility] | [address] | | + + + + + | [facility] | [address] | [place], [place] | | | THERAPY | [facility] | [address] | | + + + + + [...] Damian, | | | | | | TRAVEL AGENCY MANAGER | | | | + + + [...] + + | [facility] | [address] [facility] | [place], [place] | | | THERAPY | [address] | [address] | | + + + + + | [facility] | [address] [facility] | [place], [place] | | | THERAPY | [address] | [address] | | + + + + + [...] [facility] | [address] | [place], [place] | | | THERAPY | [address] | [address] | | + + + + + | [facility] | [address] | [place], [place] | | | THERAPY | [address] | [address] | | + + + + + documented in this encounter Visit Diagnoses Not on filedocumented in this encounter"
--- OUTSIDE RECORDS SUMMARY | ~2019-01-26 | XMS | Encounter Summary ---
Demographics + + + | Address | [address] | | | [place] [address] | + + + | Home Phone [...] + + + | Author | [facility] | + + + | Organization | [facility] | + + + | Address | Unknown | + + + | Phone | Unavailable | + + + Support + + + + + | Name | Relationship | Address | Phone | + + + + + | Nurys Flores | ECON | [address] | | | | | [place], | | | | | [place] [address] | | + + + + + Care Team Providers + +------+ + | Care Tier Lift Truck Operator Name | Role | Phone | [...] | | 2007 | | [facility] [address] [facility] | | | | | | [address] | | | | | | Mailcode: [id number] | | | | | | Physicianmanny Garcia | | | | | | [place], [place] | | | | | | [address] | | | | | | [phone] | | | +--------+ + + + [...]
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
--- OUTSIDE RECORDS SUMMARY | ~2019-01-26 | XMS | Encounter Summary ---
Demographics + + + | Address | [address] | | | [place] [address] | + + + | Home Phone | | + + + | Preferred Language | Unknown | + + + | Marital Status | Single | + + + | Spiritism Affiliation | EPI | + + + | Race | White | + + + | Ethnic Group | Not or | + + + Author + + + | Author | [facility] | + + + | Organization | [facility] | + + + | Address | Unknown | + + + | Phone | Unavailable | + + + Support + + + + + | Name | Relationship | Address | Phone | + + + + + | Nurys Flores | ECON | [address] | | | | | [place], | | | | | [place] [address] | | + + + + + Care Team Providers + +------+ + | Care Director Social Welfare Name | Role | Phone | + [...] | Office | Preoperative | [facility], [facility] [address] | Preop Examination | | 2008 | Visit | Medicine Clinic at | [address] | (Primary Dx) | | | | [address] 4th Floor Day | [place] [address] | | | | | Stay [address] [facility] | | | | | | [address] | | | | | | Mailcode: [id number] | | | | | | [place] | | | | | | [address] [place], [place] | | | | | | [address] | | | | | | [phone] | | | +--------+---------+ + + + [...]
--- OUTSIDE RECORDS SUMMARY | ~2019-01-26 | XMS | Encounter Summary ---
Demographics + + + | Address | [address] | | | [place] [address] | + + + | Home Phone [...] + | Nurys Flores | ECON | [address] | | | | | [place], | | | | | [place] [address] | | + + + + + Care Team Providers + +------+ + | Care Adventure Therapist Name | Role | Phone | [...] | | | | Closed | MD Victor Manuel | [address] | | | | | fracture of | [address] | [address] | | | | | proximal end | [address] | [address] | | | | | of humerus | Rd | Mailcode: | | | | | Procedures | [facility] [place] | [address] | | | | | MRI | [id number] | [place] | | | | | [address] | | Research | | | | | WO CONT | | [place] | | | | | | | [place], [place] | | | | | | | [address] | | | | | | | Phone: | | | | | | | [phone] | | | | | | | Fax: | | | | | | | [phone] | +--------+--------+ + + + + Encounter Details +--------+ + + + + | Date | Type | Department | Care Team | Description | +--------+ + + + + | 08/12/ | Hospital | Diagnostic Imaging | | | | 2008 | Encounter | Services at [facility] | | | | | | [address] | | | | | | [place] Mailcode: | | | | | | [address] [place] | | | | | | [facility] | | | | | | [place], [place] | | | | | | [address] | | | | | | [phone] | | | +--------+ + + + [...] + +--------+ + + + | MRI SHOULDER RT WO | Routin | 08/12/2008 | Closed Fracture of | Results for this | | CONT | e | 3:43 PM | Proximal End of | procedure are in the | | | | PDT | Humerus | results section. | + +--------+ + + + documented in this encounter Results MRI SHOULDER RT WO [...] | | | | | | ARIADNA ACOSTA | | | | | | FedeSTATUS FINAL / DrKaia | | | | | | ARIADNA [...]
--- OUTSIDE RECORDS SUMMARY | ~2019-01-26 | XMS | Encounter Summary ---
Demographics + + + | Address | [address] | | | [place] [address] | + + + | Home Phone [...] + | Nurys Flores | ECON | [address] | | | | | [place], | | | | | [place] [address] | | + + + + + Care Team Providers + +------+ + | Care Fire Patroller Name | Role | Phone | + +------+ + PCP | Unavailable | + +------+ + Encounter Details +--------+ + + + + | Date | Type | Department | Care Team | Description | +--------+ + + + + | 12/09/ | Results | Registration [address] | Ildefonso Hays MD | | | 2006 | Only | [address] | [facility] | | | | | [address] Mailcode: [id number] | [facility] | | | | | [place], [place] | [address] | | | | | [address] | [address] [place], | | | | | [phone] | [place] [address] | | +--------+ + + + + [...] X-RAY CHEST 1 VIEW | Specif | 12/10/2006 | | Results for this | | | ic | 7:06 AM | | procedure are in the | | | (Rad | PDT | | results section. | | | orders | | | | | | only) | | | | + +--------+ + + + | X-RAY CHEST 1 VIEW | Specif | 12/09/2006 | | Results for this | | | ic | 2:28 PM | | procedure are in the | | | (Rad | PDT | | results section. | | | orders | | | | | | only) | | | | + +--------+ + + + documented in this encounter Results CHEST 1 VIEW (12/10/2006 7:06 AM PDT) + + + + + + | Component | Value | Ref Range | Performed | Pathologist | | | | | At | Signature | + + + + + + | CHEST, 1 | Radiologist 1: TAMARA, | | | | | VIEW | Fede TEJADAAP chest | | | | | | Comparison: Yesterday | | | | | | Findings: A left | | | | | | chest tube has been | | | | | | placed with | | | | | | intervalsignificant | | | | | | decrease in the amount | | | | | | of left pleural | | | | | | fluid.Subcutaneous | | | | | | emphysema is noted along | | | | | | the left chest wall. | | | | | | Thecardiac and | | | | | | mediastinal contours are | | | | | | normal. | | | | | | Subsegmentalatelectasi | | | | | | s is present in the | | | | | | right lung. No | | | | | | pneumothorax | | | | | | isvisualized. | | | | | | Retrocardiac | | | | | | atelectasis/aspiration | | | | | | is noted. Distalleft | | | | | | clavicular fracture, | | | | | | comminuted fracture of | | | | | | the proximalright | | | | | | humerus and bilateral | | | | | | rib fractures again | | | | | | noted.Impression: | | | | | | Interval significant | | | | | | decrease in left pleural | | | | | | fluid following | | | | | | leftchest tube | | | | | | placement. | | | | + + + + + + + + | Specimen | + + | | + + + +---------+ + + | Performing | Address | City/State/Zipcode | Phone Number | | Organization | | | | + +---------+ + + | [facility] DEPARTMENT OF | | | | | RADIOLOGY | | | | + +---------+ + + CHEST 1 VIEW (12/09/2006 2:28 PM PDT) + + + + + + | Component | Value | Ref Range | Performed | Pathologist | | | | | At | Signature | + + + + + + | CHEST, 1 | Radiologist 1: DEEPALI | | | | | VIEW | Fede WADDELL-Radiologist | | | | | | 2: ERNESTINE [place], | | | | | | FedeEXAM: AP chest. | | | | | | COMPARISON: Earlier | | | | | | today FINDINGS: There | | | | | | is increasing pleural | | | | | | fluid extending from | | | | | | theleft lung base to the | | | | | | left apex. There is | | | | | | an additional | | | | | | componentof left basilar | | | | | | atelectasis. The | | | | | | mediastinum remains | | | | | | somewhatwidened and | | | | | | dense. Bilateral rib | | | | | | fractures are again | | | | | | noted.There is no | | | | | | pneumothorax.IMPRESSION: | | | | | | 1. Increasing pleural | | | | | | fluid, presumably | | | | | | hematoma with a | | | | | | widenedand dense | | | | | | mediastinum. CT of the | | | | | | chest is recommended. | | | | | | Thesefindings were | | | | | | called to the | | | | | | residentcaring for the | | | | | | patient at the time of | | | | | | dictation. | | | | + + + + + + + + | Specimen | + + | | + + + +---------+ + + | Performing | Address | City/State/Zipcode | Phone Number | | Organization | | | | + +---------+ + + | [facility] DEPARTMENT OF | | | | | RADIOLOGY | | | | + +---------+ + + documented in this encounter Visit Diagnoses Not on filedocumented in this encounter"
--- OUTSIDE RECORDS SUMMARY | ~2019-01-26 | XMS | Encounter Summary ---
Demographics + + + | Address | [address] | | | [place] [address] | + + + | Home Phone [...] + | Nurys Flores | ECON | [phone] | | | | | [place], | | | | | [place] [address] | | + + + + + Care Team Providers + +------+ + | Care Security Specialist Name | Role | Phone | [...] | Alex Mailcode: [id number] | [address] [place], | | | | | [place], [place] | [place] [address] | | | | | [address] | | | | | | [phone] | | | +--------+ + + + [...] | | + +---------+ + + | [facility] DEPARTMENT OF | | | | | RADIOLOGY | | | | + +---------+ + + documented in this encounter Visit Diagnoses Not on filedocumented in this encounter"
--- OUTSIDE RECORDS SUMMARY | ~2019-01-26 | XMS | Encounter Summary ---
Demographics + + + | Address | [address] | | | [place] [address] | + + + | Home Phone [...] + + + | Author | [facility] | + + + | Organization | [facility] | + + + | Address | Unknown | + + + | Phone | Unavailable | + + + Support + + + + + | Name | Relationship | Address | Phone | + + + + + | Nurys Flores | ECON | [address] | | | | | [place], | | | | | [place] [address] | | + + + + + Care Team Providers + +------+ + | Care Sr. Payroll Manager Name | Role | Phone | [...] [address] | | | | | [place], [place] | [place] [address] | | | | | [address] | | | | | | [phone] | | | +--------+ + + + [...] | | + +---------+ + + | [facility] DEPARTMENT OF | | | | | RADIOLOGY | | | | + +---------+ + + documented in this encounter Visit Diagnoses Not on filedocumented in this encounter"
--- OUTSIDE RECORDS SUMMARY | ~2019-01-26 | XMS | Encounter Summary ---
Demographics + + + | Address | [address] | | | [place] [address] | + + + | Home Phone | | + + + | Preferred Language | Unknown | + + + | Marital Status | Single | + + + | Anglican Affiliation | EPI | + + + | Race | White | + + + | Ethnic Group | Not or | + + + Author + + + | Author | [facility] | + + + | Organization | [facility] | + + + | Address | Unknown | + + + | Phone | Unavailable | + + + Support + + + + + | Name | Relationship | Address | Phone | + + + + + | Nurys Flores | ECON | [address] | | | | | [place], | | | | | [place] [address] | | + + + + + Care Team Providers + +------+ + | Care Warehouse Foreman Name | Role | Phone | + [...] [address] | | | | | [place], [place] | [place] [address] | | | | | [address] | | | | | | [phone] | | | +--------+ + + + [...] | | + +---------+ + + | [facility] DEPARTMENT OF | | | [...] | | | | | Dr. Oscar Hasy. | | | | + + + + + + + + | Specimen | + + | | + + + +---------+ + + | Performing | Address | City/State/[facility] | Phone Number | | Organization | | | | + +---------+ + + | [facility] DEPARTMENT OF | | | [...] | | + +---------+ + + | [facility] DEPARTMENT | | | | | RADIOLOGY | | | | + +---------+ + + documented in this encounter Visit Diagnoses Not on filedocumented in this encounter"
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
--- OUTSIDE RECORDS SUMMARY | ~2019-01-26 | XMS | Encounter Summary ---
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 | Role | Phone | + [...] | | | Sprain and | John Chambers | [address] | | | | | strain of | Rd | Mailcode: | | | | | other | [place], [place] | [id number] | | | | | specified | [phone] | Physician's | | | | | sites of | | [facility] | | | | | shoulder and | | [place], [place] | | | | | upper arm | | [address] | | | | | left distal | | Phone: | | | | | clavicle | | [phone] | | | | | nonuion wiht | | Fax: | | | | | medial | | [phone] | | | | | coracoclavic | | | | | | | ular | | | | | | | ligament | | | | | | | rupture | | | | | | | Procedures | | | | | | | [place] PART | | | | | | | EXCIS | | | | | | | [place] | | | | | | | PARTIAL | | | | | | | REMOVAL, | | | | | | | [place] | | | | | | | [...] Jose | | | | | | [place], [place] | | | | | | [address] | | | | | | [phone] | | | +--------+---------+ + + + [...] injury. She is engaed and lives in [place]. Physical Examination: Patient is alert and oriented [...] dec ompression might suffice. documented in this [facility] hospital [facility] Plan of Treatment Not on filedocumented as of this encounter Visit Diagnoses + + | Diagnosis | + + | Clavicle fracture - Primary Unspecified part of closed fracture of clavicle | + + documented in this encounter
--- OUTSIDE RECORDS SUMMARY | ~2019-01-26 | XMS | Encounter Summary ---
Demographics + + + | Address | [address] | | | [place] [address] | + + + | Home Phone | | + + + | Preferred Language | Unknown | + + + | Marital Status | Single | + + + | Jewish Affiliation | EPI | + + + [...] + | Nurys Flores | ECON | [id number] | | | | | [place], | | | | | [place] [address] | | + + + + + Care Team Providers + +------+ + | Care Av Specialist Name | Role | Phone | [...] | Closed | | | | | [facility] | | | | | | | [place] | | | | | | | [address] | | | | | | | [address] | | | | | | | [place] | | | | | | | [address] | | | | | | | [place] | | | | | | | [place] | | | | | | | [place] | | | | | | | [address] | | | | | | | Phone: | | | | | | | [phone] | | | | | | | Fax: | | | | | | | [phone] | +--------+--------+ + + + + Encounter Details +--------+ + + + + | Date | Type | Department | Care Team | Description | +--------+ + + + + | 07/13/ | Hospital | [facility] [address] | Victor Manuel Crowley MD | | | 2008 | Encounter | [address] | | | | | | [id number] [place] | | | | | | [place], | | | | | | [place] [address] | | | | | | [phone] | | | +--------+ + + + [...] + + + | Blood Pressure | 114/69 | 07/13/2008 4:00 PM | | | | | PDT | | + + + + + | Pulse | 77 | 07/13/2008 4:00 PM | | | | | PDT | | + + + + + | Temperature | 36.7 C (98.1 F) | 07/13/2008 4:00 PM | | | [...] + + + + | Weight | 61.8 kg (136 lb 3.9 | 07/13/2008 1:51 PM | | | | oz) | PDT | | + + + + + | Height | 167.6 cm (5' 6") | 07/13/2008 1:51 PM | | | | | PDT | | + + + + + | Body Mass Index | 21.99 | 07/13/2008 1:51 PM | | | | | PDT | | + + + + + documented in this encounter Discharge Summaries Other, Faculty - 07/13/2008 4:45 PM PDT Roque Devi MD - 07/13/2008 3:01 PM PDTForm atting of this note might be different from the original. 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 She has had superficial shoulder pain with motion at the location of the coracoclavicula r screw since a recent fall. She was indicated for screw removal. She tolerated procedure w ell without complication and will be discharged to home. Discharge Medications: START taking these medications hydrocodone-acetaminophen (VICODIN) 5-500 mg Oral Tablet Take 1 Tab by mouth every six hours as needed for pain. Not to exceed 5 in 24 hours Qty: 30 Refills: 0 CONTINUE these medications which have NOT CHANGED CALCIUM ORAL twice a day MULTIVITAMINS OR Take by mouth once daily. oxycodone (immediate release) 15 mg Oral Tablet 1 tab po q4-6 hr prn pain oxycodone (immediate release) 5 mg Oral Capsule Take 5 mg by mouth every six hours as needed STOOL SOFTENER OR Take by mouth once daily. VITAMIN D OR one pill in the morning Diet: No restrictions Activity: No lifting greater than 10 lbs until clinic follow up Special Instructions: -No heavy lifting until follow up -Do not soak incisionj -Use tylenol for pain if needed; may fill Vicodin prescription if pain not controlled Call: Orthopedic Clinic Line at If you have any of the following: Difficulty breathing or unusual shortness of breath Excessive bleeding, drainage at the operative site Fevers, chills, increased pain that is not relieved by pain medications Persistent nausea or vomiting Follow Up Appointments: PCP: Juanjo Ro MD As needed Other: Dr. Crowley in 2 weeks; call [phone] to schedule Follow Up Tests: (Tests at [facility] must be entered into [facility]) None Condition On Discharge: Good Vital Signs at discharge as appropriate: BP: 106/72 mmHg (07/13/08 1:51 PM) Pulse: 81 (07/13/08 1:51 PM) Resp: 15 (07/13/08 1:51 PM) Wt - Scale: 61.8 kg (136 lb 3.9 oz) (07/13/08 1:51 PM) Discharge Patient To: Home Does patient have a planned readmission: No Discharge Summary Completed?: Yes Discharging Provider: ROQUE DEVI MD Date Completed: 07/13/08 Time Completed: 1458 Discharging Attending: Victor Manuel Crowley MD documented in this enc ounter Discharge Instructions Instructions Farhan Holbrook - 07/13/2008Formatting of this note might be different from t he original. 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 She has had superficial shoulder pain with motion at the location of the coracoclavicula r screw since a recent fall. She was indicated for screw removal. She tolerated procedure w ell without complication and will be discharged to home. Discharge Medications: START taking these medications hydrocodone-acetaminophen (VICODIN) 5-500 mg Oral Tablet Take 1 Tab by mouth every six hours as needed for pain. Not to exceed 5 in 24 hours Qty: 30 Refills: 0 CONTINUE these medications which have NOT CHANGED CALCIUM ORAL twice a day MULTIVITAMINS OR Take by mouth once daily. oxycodone (immediate release) 15 mg Oral Tablet 1 tab po q4-6 hr prn pain oxycodone (immediate release) 5 mg Oral Capsule Take 5 mg by mouth every six hours as needed STOOL SOFTENER OR Take by mouth once daily. VITAMIN D OR one pill in the morning Diet: No restrictions Activity: No lifting greater than 10 lbs until clinic follow up Special Instructions: -No heavy lifting until follow up -Do not soak incisionj -Use tylenol for pain if needed; may fill Vicodin prescription if pain not controlled Call: Orthopedic Clinic Line at If you have any of the following: Difficulty breathing or unusual shortness of breath Excessive bleeding, drainage at the operative site Fevers, chills, increased pain that is not relieved by pain medications Persistent nausea or vomiting Follow Up Appointments: PCP: Juanjo Ro MD As needed Other: Dr. Crowley in 2 weeks; call [phone] to schedule Follow Up Tests: (Tests at [facility] must be entered into [facility]) None Condition On Discharge: Good Vital Signs at discharge as appropriate: BP: 106/72 mmHg (07/13/08 1:51 PM) Pulse: 81 (07/13/08 1:51 PM) Resp: 15 (07/13/08 1:51 PM) Wt - Scale: 61.8 kg (136 lb 3.9 oz) (07/13/08 1:51 PM) Discharge Patient To: Home Does patient have a planned readmission: No Discharge Summary Completed?: Yes Discharging Provider: ROQUE DEVI MD Date Completed: 07/13/08 Time Completed: 8 Discharging Attending: Victor Manuel Crowley MD INPATIENT NURSE ORDER FOR DISCHARGE AND INTERDISCIPLINARY INSTRUCTIONS DISCHARGE DATE: 07/13/2008 PATIENT EDUCATION: Patient given the following printed education materials None except MD instructions Review with patient/family: Understanding of disease/injury/surgical repair Yes Signs/symptoms that they should report Yes Understanding of medications and side effects Yes Activity and diet instructions Yes Follow-up appointments Yes Any concerns/fears N/A Smoking Cessation Counseling/Information was given: N/A Additional Instructions: (ex: daily weights, wound care, tube feeding, trach care, CBG nahomy toring etc.) None Personal Effects/Medications: Sent home with patient Discharged Via: Wheelchair Mode of Transportation: Car Accompanied by: Family/Responsible [employer] Name: (when applicable) Phone #: Discharge Nurse: Farhan Holbrook Date: 07/13/2008 Discharge Time: 3:55 PM documented in this encounter Medications at Time [...] documented as of this encounter Progress Notes Roque Devi MD - 07/13/2008 5:34 PM PDTPOC Pain controlled. No complaints Makes OK sign, finger abd/add, thumb extension SILT m/r/u distribution No excessive swelling Painless shoulder and arm AROM D/C to home. ictor Manuel Barron MD - 07/13/2008 1:58 PM PDTI have reviewed the pre-procedural history and physical and there are no changes. documented in this enc ounter Plan of Treatment Not on filedocumented as of this encounter Procedures + +--------+ + + + | Procedure Name | Priori | Date/Time | Associated Diagnosis | Comments | | | ty | | | | + +--------+ + + + | PROCEDURE NOTE | Routin | 05/17/2015 | | Results for this | | | e | 1:38 PM | | procedure are in the | | | | PST | | results section. | + +--------+ + + + | ANESTHESIA/SEDATION | | 07/13/2008 | | Results for this | | | | 4:45 PM | | procedure are in the | | | | PDT | | results section. | + +--------+ + + + | ANESTHESIA/SEDATION | | 07/13/2008 | | Results for this | | | | 4:45 PM | | procedure are in the | | | | PDT | | results section. | + +--------+ + + + | OPERATION RECORD | | 07/13/2008 | | Results for this | | | | 12:00 AM | | procedure are in the | | | | PDT | | results section. | + +--------+ + + + documented in this encounter Results PROCEDURE NOTE (05/17/2015 1:38 PM PST)ANESTHESIA/SEDATION (07/13/2008 4:45 PM PDT) + + + | Narrative | Performed At | + + + | | | + + + + + | Procedure Note | + + | Marilee Cuevas - 07/13/2008 4:45 PM PDT | + + ANESTHESIA/SEDATION (07/13/2008 4:45 PM PDT) + + + | Narrative | Performed At | + + + | | | + + + + + | Procedure Note | + + | Marilee Cuevas - 07/13/2008 4:45 PM PDT | + + OPERATION RECORD (07/13/2008 12:00 AM PDT) + + + | Narrative | Performed At | + + + | [id number] | | | [id number] | | | [id number] [place] [id number] | | | Date: 07/13/2008 Attending Surgeon: | | | Victor Manuel Crowley M.D. [employer] Supervisor(s): | | | Roque Devi M.D. | | | Preoperative Diagnosis(es): Retained coracoclavicular screw, left | | | shoulder. Postoperative Diagnosis(es): Retained | | | coracoclavicular screw, left shoulder. Procedure Performed: | | | Removal of coracoclavicular screw, washer, and suture, left | | | shoulder. Anesthesia: General. Blood Loss: Negligible. | | | Blood Replacement: Intravenous crystalloid fluids 600 mL. | | | Complications: None apparent. Postoperative Plan: To | | | return to clinic in approximately 2 weeks for suture removal. She | | | will gradually increase her activities as tolerated, call for any | | | signs or symptoms of infections or any other questions or concerns. | | | She will remove the dressing in 2 to 3 days' time, wash with soap | | | and water but not immerse until sutures were removed. | | | Attending Surgeon Attestation: I certify I was present in the | | | operating room and participated in all phases of the procedure. | | | Indications: This 42-year-old woman sustained a left distal | | | clavicle fracture and a right proximal humerus fracture on November | | | 2006. These were initially treated nonoperatively. 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 | | | She has done well since then but is now indicated for screw | | | removal as the repair is healed and the screw is symptomatic. | | | Preoperative x-rays show loosening of the screw in the clavicle and | | | maintenance of position in the coracoid with the washer no longer | | | firmly apposed along the superior clavicle indicating that the | | | ligament reconstruction is functioning. Operative Findings: | | | The screw head was easily identified, and the screw and the washer | | | were removed. The suture around the screw was also identified and | | | easily removed. There were no signs of infection. | | | Procedure: The patient was identified in the holding area. I marked | | | the operative shoulder. She was then brought to operating room | | | #10, placed supine on the OR table, and general anesthesia was | | | administered. CLINDAMYCIN 600 MG WAS GIVEN INTRAVENOUSLY IN | | | RESPECT OF HER PENICILLIN ANAPHYLAXIS ALLERGY. She was positioned | | | in a slight beachchair position. The palpable screw was centered | | | in the operative field which was squared off with plastic adhesive | | | drapes and then sterilely prepped with ChloraPrep and draped in a | | | sterile fashion. Surgical pause was carried out confirming we had | | | the correct patient, operative site, procedure, and appropriate | | | instruments to remove the screw and washer. Everyone in the room | | | was in agreement including nursing, anesthetic, and surgical team | | | members. The screw head was then palpated in longitudinal | | | incision in Amol's lines, was marked centered on the incision, | | | approximately 1 cm in length. Infiltrated with 0.5% Marcaine with | | | epinephrine, the skin was sharply incised. The subcutaneous | | | tissue was divided with electrocautery. The interval between the | | | trapezius and the deltoid identified and divided with spreading | | | technique. The screw head identified. The guidepins for the | | | 6.5/7.3 mm Synthes cannulated screw set inserted down the barrel of | | | the cannulated screw and the screwdriver placed and the screw | | | backed out slightly. We then identified the washer and put a | | | hemostat on this and delivered this out of the wound over the | | | screw. With removal of the screw and washer came some of the | | | nonresorbable suture that had been tied around the screw, and this | | | was cut out as well. The wound was then irrigated with additional | | | 0.5% Marcaine with epinephrine and infiltrated again and then closed | | | in layers using [id number]-[id number]-yhnfz 2-0 Vicryl for the fascial layer | | | and the subcutaneous layer and 3-0 vertical mattress nylon sutures | | | for the skin. Xeroform, 4 x 4s, and Cover-Roll comprised the | | | dressing. The patient was undraped, reversed from anesthesia, | | | transferred to the [facility], and brought to the recovery room in | | | stable and satisfactory condition having tolerated the procedure | | | well without apparent complication. All sponge, needle, and | | | instrument counts were reported correct prior to leaving the OR. | | | Victor Manuel Crowley M.D. / [id number] / [id number] / [id number] | | | / | | + + + + -+ | Procedure Note | + -+ | Victor Manuel Crowley MD - 07/13/2008 12:00 AM [facility] [id number] | | [id number] [place] | | L [id number] Date: 07/13/2008 Attending Surgeon: | | Victor Manuel Crowley M.D. [employer] Supervisor(s): Roque Devi | | Fede Preoperative Diagnosis(es):Retained coracoclavicular screw, left shoulder. | | Postoperative Diagnosis(es):Retained coracoclavicular screw, left shoulder. Procedure | | Performed:Removal of coracoclavicular screw, washer, and suture, left shoulder. | | Anesthesia:General. Blood Loss:Negligible. Blood Replacement:Intravenous crystalloid | | fluids 600 mL. Complications:None apparent. Postoperative Plan:To return to clinic in | | approximately 2 weeks for suture removal. She willgradually increase her activities as | | tolerated, call for any signs orsymptoms of infections or any other questions or | | concerns. She will removethe dressing in 2 to 3 days' time, wash with soap and water | | but not immerseuntil sutures were removed. Attending Surgeon Attestation:I certify I | | was present in the operating room and participated in allphases of the procedure. | | Indications:This 42-year-old woman sustained a left distal clavicle fracture and aright | | proximal humerus fracture on December 06, 2006. These were initiallytreated | | nonoperatively. She went on to develop a nonunion of the leftdistal clavicle fracture | | with a late disruption of the coracoclavicularligament and underwent excision of her | | distal clavicle fragment andcoracoclavicular ligament reconstruction with a left | | coracoacromialligament and reinforcement with a coracoclavicular screw on January | | . She has done well since then but is now indicated for screw removalas the | | repair is healed and the screw is symptomatic. Preoperative x-raysshow loosening of the | | screw in the clavicle and maintenance of position inthe coracoid with the washer no | | longer firmly apposed along the superiorclavicle indicating that the ligament | | reconstruction is functioning. Operative Findings:The screw head was easily identified, | | and the screw and the washer wereremoved. The suture around the screw was also | | identified and easilyremoved. There were no signs of infection. Procedure:The patient | | was identified in the holding area. I marked the operativeshoulder. She was then | | brought to operating room #10, placed supine on theOR table, and general anesthesia was | | administered. CLINDAMYCIN 600 MG WASGIVEN INTRAVENOUSLY IN RESPECT OF HER PENICILLIN | | ANAPHYLAXIS ALLERGY. Shewas positioned in a slight beachchair position. The palpable | | screw wascentered in the operative field which was squared off with plastic | | adhesivedrapes and then sterilely prepped with ChloraPrep and draped in a | | sterilefashion. Surgical pause was carried out confirming we had the correctpatient, | | operative site, procedure, and appropriate instruments to removethe screw and washer. | | Everyone in the room was in agreement includingnursing, anesthetic, and surgical team | | members. The screw head was thenpalpated in longitudinal incision in Amol's lines, | | was marked centered onthe incision, approximately 1 cm in length. Infiltrated with 0.5% | | Marcainewith epinephrine, the skin was sharply incised. The subcutaneous tissuewas | | divided with electrocautery. The interval between the trapezius andthe deltoid | | identified and divided with spreading technique. The screwhead identified. The | | guidepins for the 6.5/7.3 mm Synthes cannulated screwset inserted down the barrel of the | | cannulated screw and the screwdriverplaced and the screw backed out slightly. We then | | identified the washerand put a hemostat on this and delivered this out of the wound over | | thescrew. With removal of the screw and washer came some of the nonresorbable suture | | that hadbeen tied around the screw, and this was cut out as well. The wound wasthen | | irrigated with additional 0.5% Marcaine with epinephrine andinfiltrated again and then | | closed in layers using ekynxq-wb-kawla 2-0Vicryl for the fascial layer and the | | subcutaneous layer and 3-0 verticalmattress nylon sutures for the skin. Xeroform, 4 x | | 4s, and Cover-Rollcomprised the dressing. The patient was undraped, reversed | | fromanesthesia, transferred to the [facility], and brought to the recovery room instable and | | satisfactory condition having tolerated the procedure wellwithout apparent | | complication. All sponge, needle, and instrument countswere reported correct prior to | | leaving the OR. Victor Manuel Crowley M.D. / [id number] / [id number] / [id number] / T: | | 07/14/2008 | |This 42-year-old woman sustained a left distal clavicle fracture and a | |right proximal humerus fracture on December 06, 2006. These were initially | |treated nonoperatively. She went on to develop a nonunion of the left | |distal clavicle fracture with a late disruption of the coracoclavicular | |ligament and underwent excision of her distal clavicle fragment and | |coracoclavicular ligament reconstruction with a left coracoacromial | |ligament and reinforcement with a coracoclavicular screw on February 09, | |2007. She has done well since then but is now indicated for screw removal | |as the repair is healed and the screw is symptomatic. Preoperative x-rays | |show loosening of the screw in the clavicle and maintenance of position in | |the coracoid with the washer no longer firmly apposed along the superior | |clavicle indicating that the ligament reconstruction is functioning. | | | | | |Operative Findings: | |The screw head was easily identified, and the screw and the washer were | |removed. The suture around the screw was also identified and easily | |removed. There were no signs of infection. | | | | | |Procedure: | |The patient was identified in the holding area. I marked the operative | |shoulder. She was then brought to operating room #10, placed supine on the | |OR table, and general anesthesia was administered. CLINDAMYCIN 600 MG WAS | |GIVEN INTRAVENOUSLY IN RESPECT OF HER PENICILLIN ANAPHYLAXIS ALLERGY. She | |was positioned in a slight beachchair position. The palpable screw was | |centered in the operative field which was squared off with plastic adhesive | |drapes and then sterilely prepped with ChloraPrep and draped in a sterile | |fashion. Surgical pause was carried out confirming we had the correct | |patient, operative site, procedure, and appropriate instruments to remove | |the screw and washer. Everyone in the room was in agreement including | |nursing, anesthetic, and surgical team members. The screw head was then | |palpated in longitudinal incision in Amol's lines, was marked centered on | |the incision, approximately 1 cm in length. Infiltrated with 0.5% Marcaine | |with epinephrine, the skin was sharply incised. The subcutaneous tissue | |was divided with electrocautery. The interval between the trapezius and | |the deltoid identified and divided with spreading technique. The screw | |head identified. The guidepins for the 6.5/7.3 mm Synthes cannulated screw | |set inserted down the barrel of the cannulated screw and the screwdriver | |placed and the screw backed out slightly. We then identified the washer | |and put a hemostat on this and delivered this out of the wound over the | |screw. With removal of the screw and washer came some of the nonresorbable suture that had | |been tied around the screw, and this was cut out as well. The wound was | |then irrigated with additional 0.5% Marcaine with epinephrine and | |infiltrated again and then closed in layers using gtewuu-no-dbwmu 2-0 | |Vicryl for the fascial layer and the subcutaneous layer and 3-0 vertical | |mattress nylon sutures for the skin. Xeroform, 4 x 4s, and Cover-Roll | |comprised the dressing. The patient was undraped, reversed from | |anesthesia, transferred to the [facility], and brought to the recovery room in | |stable and satisfactory condition having tolerated the procedure well | |without apparent complication. All sponge, needle, and instrument counts | |were reported correct prior to leaving the OR. | | | | | | | | | |Victor Manuel Crowley M.D. | | | | | |ELLIOTT / MARVIN | |[id number] / [id number] / [id number] / | | | | | | | | | | | | | | | | | | | | | + -+ documented in this encounter Visit Diagnoses Not on filedocumented in this encounter
--- OUTSIDE RECORDS SUMMARY | ~2019-01-26 | XMS | Encounter Summary ---
Demographics + + + | Address | [address] | | | [place] [address] | + + + | Home Phone | | + + + | Preferred Language | Unknown | + + + | Marital Status | Single | + + + | Hoahaoism Affiliation | EPI | + + + | Race | White | + + + | Ethnic Group | Not or | + + + Author + + + | Author | [facility] | + + + | Organization | [facility] | + + + | Address | Unknown | + + + | Phone | Unavailable | + + + Support + + + + + | Name | Relationship | Address | Phone | + + + + + | Nurys Flores | ECON | [address] | | | | | [place], | | | | | [place] [address] | | + + + + + Care Team Providers + +------+ + | Care Gas Welding Machine Operator Name | Role | Phone [...] | | | | | | | [id number] | | | | | | | [place] | | | | | | | [place] | | | | | | | [place] | | | | | | | [address] | | | | | | | Phone: | | | | | | | [phone] | | | | | | | Fax: | | | | | | | [phone] | +--------+--------+ + + + + Encounter Details +--------+ + + + + | Date | Type | Department | Care Team | Description | +--------+ + + + + | 07/13/ | Hospital | [facility] [address] | Victor Manuel Crowley MD | | | 2008 | Encounter | [address] | | | | | | [address] | | | | | | [place], | | | | | | [place] [address] | | | | | | [phone] | | | +--------+ + + + [...] Other: Dr. Crowley in 2 weeks; call [phone] to schedule Follow Up Tests: (Tests at [facility] must be entered into Epic) None Condition [...] Other: Dr. Crowley in 2 weeks; call [phone] to schedule Follow Up Tests: (Tests at [facility] must be entered into [facility]) None Condition On Discharge: Good Vital Signs [...] Mode of Transportation: Car Accompanied by: Family/Responsible [employer] Company Name: (when applicable) Phone #: [...] Performed At | + + + | [id number] | | | [id number] | | | [phone] URSULA Cosby [address] | | | Date: 07/13/2008 Attending Surgeon: | | | Victor Manuel Crowley M.D. Silk Screen Printer Machine(s): | | | Roque Devi M.D. | [...] closed | | | in layers using bvysie-uq-cdina 2-0 Vicryl for the fascial layer | | | and the subcutaneous layer and 3-0 vertical mattress nylon sutures | | | for the skin. Xeroform, 4 x 4s, and Cover-Roll comprised the | | | dressing. The patient was undraped, reversed from anesthesia, | | | transferred to the [facility], and brought to the recovery room in | | | stable and satisfactory condition having tolerated the procedure | | | well without apparent complication. All sponge, needle, and | | | instrument counts were reported correct prior to leaving the OR. | | | Victor Manuel Crowley M.D. / [id number] / [id number] / [id number] | | | / | | + + + + -+ | Procedure Note | + -+ | Victor Manuel Crowley MD - 07/13/2008 12:00 AM [facility] [id number] | | [id number] URSULA BUCIO | | L [id number] Date: 07/13/2008 Attending Surgeon: | | Victor Manuel Crowley M.D. Silk Screen Printer Machine(s): Roque Devi | | Fede Preoperative Diagnosis(es):Retained [...] then | | closed in layers using bwujef-do-dehpb 2-0Vicryl for the fascial layer and the | | subcutaneous layer and 3-0 verticalmattress nylon sutures for the skin. Xeroform, 4 x | | 4s, and Cover-Rollcomprised the dressing. The patient was undraped, reversed | | fromanesthesia, transferred to the [facility], and brought to the recovery room instable and | | satisfactory condition having tolerated the procedure wellwithout apparent | | complication. All sponge, needle, and instrument countswere reported correct prior to | | leaving the OR. Victor Manuel Crowley M.D. / [id number] / [id number] / [id number] / T: | | 07/14/2008 | |This [...] again and then closed in layers using mxqumq-yv-zgjah 2-0 | |Vicryl for the fascial layer and the subcutaneous layer and 3-0 vertical | |mattress nylon sutures for the skin. Xeroform, 4 x 4s, and Cover-Roll | |comprised the dressing. The patient was undraped, reversed from | |anesthesia, transferred to the [facility], and brought to the recovery room in | |stable and satisfactory condition having tolerated the procedure well | |without apparent complication. All sponge, needle, and instrument counts | |were reported correct prior to leaving the OR. | | | | | | | | | |Victor Manuel Crowley M.D. | | | | | |ELLIOTT / MARVIN | |[id number] / [id number] / [id number] / | | | | | | | | | | | | | | | | | | | | | + -+ documented in this encounter Visit Diagnoses Not on filedocumented in this encounter
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
--- OUTSIDE RECORDS SUMMARY | ~2019-01-26 | XMS | Encounter Summary ---
Demographics + + + | Address | [address] | | | [place] [address] | + + + | Home Phone | | + + + | Preferred Language | Unknown | + + + | Marital Status | Single | + + + | Amish Affiliation | EPI | + + + [...] + | Nurys Flores | ECON | [id number] | | | | | [place], | | | | | [place] [address] | | + + + + + Care Team Providers + +------+ + | Care Pathologist Assistant Name | Role | Phone | + +------+ + | Juanjo Ro MD | PCP | | + +------+ + Encounter Details +--------+ + + + + | Date | Type | Department | Care Team | Description | +--------+ + + + + | 07/12/ | Ground Source Heat Pump Technician | Orthopaedics at | Victor Manuel Crowley MD | Clavicle Fracture | | 2008 | | [facility] [address] | | (Primary Dx) | | | | [address] | | | | | | Mailcode: PV430 | | | | | | [facility] | | | | | | [place] | | | | | | [address] | | | | | | [phone] | | | +--------+ + + + [...]
--- OUTSIDE RECORDS SUMMARY | ~2019-01-26 | XMS | Encounter Summary ---
Demographics + + + | Address | [address] | | | [place] [address] | + + + | Home Phone | | + + + | Preferred Language | Unknown | + + + | Marital Status | Single | + + + | Orthodox Affiliation | EPI | + + + [...] + | Nurys Flores | ECON | [address] | | | | | [place], | | | | | [place] [address] | | + + + + + Care Team Providers + +------+ + | Care Hazardous Materials Driver Name | Role | Phone | + +------+ + PCP | Unavailable | + +------+ + Encounter Details +--------+ + + + + | Date | Type | Department | Care Team | Description | +--------+ + + + + | 12/08/ | Results | Registration [address] | Mason, Faculty | | | 2006 | Only | [address] | [phone] | | | | | [address] Mailcode: [id number] | | | | | | [place], [place] | | | | | | [address] | | | | | | [phone] | | | +--------+ + + + [...] | + +--------+ + + + | PRODUCT - RED CELLS | Routin | 12/08/2006 | | Results for this | | LEUKOREDUCED | e | 8:13 AM | | procedure are in the | | | | PDT | | results section. | + +--------+ + + + | TYPE AND SCREEN | Routin | 12/08/2006 | | Results for this | | | e | 7:32 AM | | procedure are in the | | | | PDT | | results section. | + +--------+ + + + documented in this encounter Results RED CELLS, LEUKOREDUCED (12/08/2006 8:13 AM PDT) + + + + + + | Component | Value | Ref Range | Performed | Pathologist | | | | | At | Signature | + + + + + + | PRODUCT | -1 RED BLOOD | | [facility] | | | DESCRIPTION | CELLS,ADENINE-SALINE | | DEPARTMENT | | | | ADDED,LEUKOCYTES REDUCED | | OF | | | | | | PATHOLOGY | | + + + + + + | PRODUCT | [id number] | | [facility] | | | UNIT # | | | DEPARTMENT | | | | | | OF | | | | | | PATHOLOGY | | + + + + + + | UNIT ABO | A | | [facility] | | | | | | DEPARTMENT | | | | | | OF | | | | | | PATHOLOGY | | + + + + + + | UNIT RH | POS | | [facility] | | | | | | DEPARTMENT | | | | | | OF | | | | | | PATHOLOGY | | + + + + + + | CROSSMATCH | Compatible | | [facility] | | | ANALYSIS | | | DEPARTMENT | | | | | | OF | | | | | | PATHOLOGY | | + + + + + + | STATUS OF | Presumed Transfused | | [facility] | | | UNIT | | | DEPARTMENT | | | [...] | + + + + + | [facility] DEPARTMENT OF | [address] [facility] | [place] [address] | | | PATHOLOGY | [address] | | | + + + + + | [facility] DEPARTMENT OF | [address] [facility] | [place] [address] | | | PATHOLOGY | [address] | | | + + + + + TYPE AND SCREEN (12/08/2006 7:32 AM PDT) + + + + + [...] | + + + + + | [facility] DEPARTMENT OF | [address] | [place] [address] | | | PATHOLOGY | [address] | | | + + + + + | [facility] DEPARTMENT OF | [address] | [place] [address] | | | PATHOLOGY | [address] | | | + + + + + documented in this encounter Visit Diagnoses Not on filedocumented in this encounter"
--- OUTSIDE RECORDS SUMMARY | ~2019-01-26 | XMS | Encounter Summary ---
Demographics + + + | Address | [address] | | | [place] [address] | + + + | Home Phone [...] + + + | Author | [facility] | + + + | Organization | [facility] | + + + | Address | Unknown | + + + | Phone | Unavailable | + + + Support + + + + + | Name | Relationship | Address | Phone | + + + + + | Nurys Flores | ECON | [address] | | | | | [place], | | | | | [place] [address] | | + + + + + Care Team Providers + +------+ + | Care Physician Primary Care Sports Medicine Name | Role | Phone | + +------+ + PCP | Unavailable | + +------+ + Encounter Details +--------+ + + + + | Date | Type | Department | Care Team | Description | +--------+ + + + + | 12/07/ | Results | Registration [address] | Braydon Salazar MD | | | 2006 | Only | [address] | [address] | | | | | [address] Mail[address]: [address] | [place], | | | | | [place], [place] | [place] [address] | | | | | [address] | [phone] | | | | | [phone] | | | +--------+ + + + [...] +--------+ + + + | X-RAY SHOULDER 2 | Urgent | 12/07/2006 | | Results for this | | VIEWS RIGHT | | 6:38 AM | | procedure are in the | | | | PDT | | results section. | + +--------+ + + + | X-RAY HUMERUS 2 | Urgent | 12/07/2006 | | Results for this | | VIEWS RIGHT | | 6:38 AM | | procedure are in the | | | | PDT | | results section. | + +--------+ + + + | X-RAY FEMUR 2 VIEWS | Urgent | 12/07/2006 | | Results for this | | RIGHT | | 6:38 AM | | procedure are in the | | | | PDT | | results section. | + +--------+ + + + documented in this encounter Results SHOULDER 2 VIEWS RIGHT (12/07/2006 6:38 AM PDT) + + + + + + | Component | Value | Ref Range | Performed | Pathologist | | | | | At | Signature | + + + + + + | SHOULDER 2 | Radiologist 1: ELIAZAR, | | | | | VIEWS RIGHT | Fede CARNEYStudy: Two | | | | | | views of the right | | | | | | humerus and right | | | | | | shoulder, 12/07/06. | | | | | | Indication: Trauma. | | | | | | Comparison: None. | | | | | | Findings: There is a | | | | | | comminuted fracture of | | | | | | the right humeral | | | | | | diametaphysisinvolving | | | | | | the greater tuberosity | | | | | | with intra-articular | | | | | | extension. | | | | | | Thisfracture shows | | | | | | half shaft displacement | | | | | | with medial impaction | | | | | | and varusangulation of | | | | | | the distal fragment. | | | | | | There is widening of | | | | | | theglenohumeral joint | | | | | | space with inferior | | | | | | subluxation of the | | | | | | humeral headmost likely | | | | | | secondary to | | | | | | hemarthrosis. The | | | | | | humerus is | | | | | | otherwiseintact with | | | | | | maintained elbow joint | | | | | | spaces. A minimally | | | | | | displacedfracture is | | | | | | also seen through the | | | | | | tip of the acromion. | | | | | | Wherefractures are | | | | | | seen through the right | | | | | | third and fourth ribs | | | | | | withassociated pleural | | | | | | thickening. The | | | | | | visualized right upper | | | | | | lung isclear. | | | | | | Impression: 1. | | | | | | Comminuted, | | | | | | intra-articular fracture | | | | | | of the right | | | | | | humeraldiametaphysis | | | | | | with displacement, | | | | | | medial impaction and | | | | | | varus angulationat the | | | | | | fracture site. 2. | | | | | | Widening of the | | | | | | glenohumeral joint space | | | | | | with | | | | | | caudalpseudosubluxation | | | | | | of the humeral head | | | | | | secondary to | | | | | | hemarthrosis. 3. | | | | | | Minimally displaced | | | | | | fracture of the | | | | | | acromion. 4. Right | | | | | | third and fourth rib | | | | | | fractures. Addendum # 1 | | | | | | by Carlos Galvez M.D. | | | | | | on 05-Jan-2007 16:16 The | | | | | | purpose of the addendum | | | | | | is to administratively | | | | | | correct theRequesting or | | | | | | Attending Physician's | | | | | | name. | | | | + + + + + + + + | Specimen | + + | | + + + +---------+ + + | Performing | Address | City/State/Zipcode | Phone Number | | Organization | | | | + +---------+ + + | [facility] DEPARTMENT OF | | | | | RADIOLOGY | | | | + +---------+ + + HUMERUS 2 VIEWS RIGHT (12/07/2006 6:38 AM PDT) + + + + + + | Component | Value | Ref Range | Performed | Pathologist | | | | | At | Signature | + + + + + + | HUMERUS 2 | Radiologist 1: ELIAZAR, | | | | | VIEWS RIGHT | Fede CARNEYStudy: Two | | | | | | views of the right | | | | | | humerus and right | | | | | | shoulder, 12/07/06. | | | | | | Indication: Trauma. | | | | | | Comparison: None. | | | | | | Findings: There is a | | | | | | comminuted fracture of | | | | | | the right humeral | | | | | | diametaphysisinvolving | | | | | | the greater tuberosity | | | | | | with intra-articular | | | | | | extension. | | | | | | Thisfracture shows | | | | | | half shaft displacement | | | | | | with medial impaction | | | | | | and varusangulation of | | | | | | the distal fragment. | | | | | | There is widening of | | | | | | theglenohumeral joint | | | | | | space with inferior | | | | | | subluxation of the | | | | | | humeral headmost likely | | | | | | secondary to | | | | | | hemarthrosis. The | | | | | | humerus is | | | | | | otherwiseintact with | | | | | | maintained elbow joint | | | | | | spaces. A minimally | | | | | | displacedfracture is | | | | | | also seen through the | | | | | | tip of the acromion. | | | | | | Wherefractures are | | | | | | seen through the right | | | | | | third and fourth ribs | | | | | | withassociated pleural | | | | | | thickening. The | | | | | | visualized right upper | | | | | | lung isclear. | | | | | | Impression: 1. | | | | | | Comminuted, | | | | | | intra-articular fracture | | | | | | of the right | | | | | | humeraldiametaphysis | | | | | | with displacement, | | | | | | medial impaction and | | | | | | varus angulationat the | | | | | | fracture site. 2. | | | | | | Widening of the | | | | | | glenohumeral joint space | | | | | | with | | | | | | caudalpseudosubluxation | | | | | | of the humeral head | | | | | | secondary to | | | | | | hemarthrosis. 3. | | | | | | Minimally displaced | | | | | | fracture of the | | | | | | acromion. 4. Right | | | | | | third and fourth rib | | | | | | fractures. Addendum # 1 | | | | | | by Carlos Galvez M.D. | | | | | | on 05-Jan-2007 16:16 The | | | | | | purpose of the addendum | | | | | | is to administratively | | | | | | correct theRequesting or | | | | | | Attending Physician's | | | | | | name. | | | | + + + + + + + + | Specimen | + + | | + + + +---------+ + + | Performing | Address | City/State/Zipcode | Phone Number | | Organization | | | | + +---------+ + + | [facility] DEPARTMENT OF | | | | | RADIOLOGY | | | | + +---------+ + + FEMUR 2 VIEWS RIGHT (12/07/2006 6:38 AM PDT) + + + + + + | Component | Value | Ref Range | Performed | Pathologist | | | | | At | Signature | + + + + + + | FEMUR 2 | Radiologist 1: ELIAZAR, | | | | | VIEWS RIGHT | Fede CARNEYStudy: Two | | | | | | views of the right | | | | | | femur, one view of the | | | | | | right hip,11/29/06. | | | | | | Indication: Trauma. | | | | | | Comparison: None. | | | | | | Findings: No fracture or | | | | | | focal destructive | | | | | | lesions are seen in the | | | | | | right hip orright femur. | | | | | | The right hip joint | | | | | | space is maintained. | | | | | | There is airin the | | | | | | soft tissues of the | | | | | | medial thigh. A 4 mm | | | | | | density is seenoverlying | | | | | | the right obturator | | | | | | foramen which may be a | | | | | | foreign body. | | | | | | Impression: No fracture | | | | | | or dislocation of the | | | | | | right hip and femur. | | | | | | Soft tissue injury with | | | | | | air in the soft tissues | | | | | | of the thigh. A density | | | | | | overlying the obturator | | | | | | foramen may be a foriegn | | | | | | body. Addendum # 1 by | | | | | | Carlos Galvez M.D. on | | | | | | 05-Jan-2007 16:15 The | | | | | | purpose of the addendum | | | | | | is to administratively | | | | | | correct theRequesting or | | | | | | Attending Physician's | | | | | | name. | | | | + + + + + + + + | Specimen | + + | | + + + +---------+ + + | Performing | Address | City/State/Zipcode | Phone Number | | Organization | | | | + +---------+ + + | [facility] DEPARTMENT OF | | | | | RADIOLOGY | | | | + +---------+ + + documented in this encounter Visit Diagnoses Not on filedocumented in this encounter"
--- OUTSIDE RECORDS SUMMARY | ~2019-01-26 | XMS | Encounter Summary ---
Demographics + + + | Address | [address] | | | [place] [address] | + + + | Home Phone [...] + | Nurys Flores | ECON | [id number] | | | | | [place], | | | | | [place] [address] | | + + + + + Care Team Providers + +------+ + | Care Computer Game Tester Name | Role | Phone | [...] | | | | | kitty | [place], [place] | | | | | | [address] | | | +--------+ + + + [...]
--- OUTSIDE RECORDS SUMMARY | ~2019-01-26 | XMS | Encounter Summary ---
Demographics + + + | Address | [address] | | | [place] [address] | + + + | Home Phone [...] + | Nurys Flores | ECON | [id number] | | | | | [place], | | | | | [place] [address] | | + + + + + Care Team Providers + +------+ + | Care Commercial Loan Manager Name | Role | Phone | + +------+ + PCP | Unavailable | + +------+ + Reason for Visit + + + | Reason | Comments | + + + | Follow-up visit | | + + + Encounter Details +--------+---------+ + + + | Date | Type | Department | Care Team | Description | +--------+---------+ + + + | 12/17/ | Office | [facility] at | Stas Osuna MD | Rib Fractures; | | 2006 | Visit | [facility] [address] | | Sternal Fracture; Fx | | | | [address] | | Humerus | | | | Mailcode: [id number] | | Shaft-Closed; Pelvic | | | | [facility] | | Fracture (HCC); Fx | | | | [address], | | Clavicle NOS-Closed; | | | | [place] [address] | | Spine Injury | | | | [phone] | | | +--------+---------+ + + + [...] + + + | Blood Pressure | 102/70 | 12/17/2006 3:26 PM | | | | | PDT | | + + + + + | Pulse | 88 | 12/17/2006 3:26 PM | | | | | PDT | | + + + + + | Temperature | 36.1 C (97 F) | 12/17/2006 3:26 PM | | | | | PDT | | + + + + + | Respiratory Rate | 16 | 12/17/2006 3:26 PM | | | | | PDT [...] + documented in this encounter Progress Notes Stas Osuna - 12/17/2006 4:00 PM PDTSee letter. She's doing OK. I removed head ld and chest tube stitch. Lungs are clear. Manubrium non-displaced. Didn't need Rx. Follow-up prn. documented gregoria n this encounter Plan of Treatment Not on filedocumented as of this encounter Visit Diagnoses + + | Diagnosis | + + | Rib fractures Closed fracture of rib(s), unspecified | + + | Sternal fracture Closed fracture of sternum | + + | Fx humerus shaft-closed Closed fracture of shaft of humerus | + + | Pelvic fracture (HCC) Unspecified closed fracture of pelvis | + + | Fx clavicle NOS-closed Unspecified part of closed fracture of clavicle | + + | Spine injury Unspecified site of spinal cord injury without evidence of spinal bone | | injury | + + documented in this encounter"
--- OUTSIDE RECORDS SUMMARY | ~2019-01-26 | XMS | Encounter Summary ---
Demographics + + + | Address | [address] | | | [place] [address] | + + + | Home Phone | | + + + | Preferred Language | Unknown | + + + | Marital Status | Single | + + + | Christian Affiliation | EPI | + + + [...] + | Nurys Flores | ECON | [id number] | | | | | [place], | | | | | [place] [address] | | + + + + + Care Team Providers + +------+ + | Care Laser Cutter Name | Role | Phone | + [...] | | | | | Procedures | [facility] [place] | [address] | | | | | MRI | [address] | Ifeoma | | | | | [address]OULDER [address] | | Research | | | | | WO CONT | | Lawson | | | | | | | [place], [place] | | | | | | | [address] | | | | | | | Phone: | | | | | | | [phone] | | | | | | | Fax: | | | | | | | [phone] | +--------+--------+ + + + + Reason [...] Closed | | Orthopedics | Diagnoses | Koe | [facility] | | | | | Other | MD Thomsa | [facility] [address] | | | | | complication | [address] | [address] | | | | | s due to | [address] | [address] | | | | | other | Rd | Mailcode: | | | | | internal | [place], [place] | [address] | | | | | orthopedic | [address] | Physician's | | | | | device, | | Pavilion | | | | | implant, and | | [place], [place] | | | | | graft s/p | | [address] | | | | | left | | Phone: | | | | | villagran-Kwan | | [phone] | | | | | cc ligament | | Fax: | | | | | reconstructi | | [phone] | | | | | on | | | | | | | Painful | | | | | | | hardware | | | | | | | Procedures | | | | | | | AR REMOVAL | | | | | | [...] Syndrome of Shoulder | | | | [place], [place] | | | | | | [address] | | | | | | [phone] | | | +--------+---------+ + + + [...] living now in her own apartment in [place] and engaged to her [employer]. She has not consumed alcohol since her [...] to h ave the surgery in the [facility] as this is closer to her home in [place] [facility] [place] [facility]. documented in this enc ounter Plan of [...] | | + +---------+ + + | [facility] DEPARTMENT OF | | | | | [...] | SHOULDER 3+ | Med Rec No: [id number] | | | | | VIEWS | Name: | | | | | RIGHT | NEETA LEONG | | | | | | Birthday: 1965 | | | | | | Sex: F | | | | | | Alias:Patient Location: | | | | | | [id number]: Outpatient | | | | | | ActiveOrdering | | | | | | Physician: THOMAS | | | | | | Fede CROWLEYGSHO3R | | | | | | SHOULDER 3 VIEWS RIGHT | | | | | | completed on 08/02/2008 | | | | | | 3:51 PMAccession # | | | | | | [id number]:RIGHT | | | | | | SHOULDER, [...] | | + +---------+ + + | [facility] DEPARTMENT OF | | | | | [...]
--- OUTSIDE RECORDS SUMMARY | ~2019-01-26 | XMS | Encounter Summary ---
Demographics + + + | Address | [address] | | | [place] [address] | + + + | Home Phone [...] + | Nurys Flores | ECON | [id number] | | | | | [place], | | | | | [place] [address] | | + + + + + Care Team Providers + +------+ + | Care Drug Enforcement Agent Name | Role | Phone | + [...] | | | | | | | [facility] | | | | | | | [facility] | | | | | | | [facility] | | | | | | | ([facility]) | | | | | | | [place], | | | | | | | [place] [address] | | | | | | | Phone: | | | | | | | [phone] | | | | | | | Fax: | | | | | | | | +--------+--------+ + + + + Encounter Details +--------+ + + + + | Date | Type | Department | Care Team | Description | +--------+ + + + + | 02/09/ | Hospital | [facility] [address] | Victor Manuel Crowley MD | | | 2007 | Encounter | [address] | | | | | | [address] [facility] | | | | | | [facility] | | | | | | ([facility]) | | | | | | [place], [place] | | | | | | [address] | | | | | | [phone] | | | +--------+ + + + [...] 42 y.o. female who was admitted to [facility] on 02/10/2008 . The patient suffered the above mentioned injuires over a year ago in [facility]. Since then her L shouler pain has [...] daily living. The patient was discharged from [facility] to home on 02/10/08 good and stable [...] as previously scheduled) with Dr. Crowley, call [phone] for appointment PCP: Svetlana Cedillo MD, follow [...] 42 y.o. female who was admitted to [facility] on 02/10/2008 . The patient suffered the above mentioned injuires over a year ago in [facility]. Since then her L shouler pain has [...] daily living. The patient was discharged from [facility] to home on 02/10/08 good and stable [...] as previously scheduled) with Dr. Crowley, call [phone] for appointment PCP: Svetlana Cedillo MD, follow [...] (pain goal: ____) Adults: Adult Pain Service #[id number] (if this is an after h ours emergency, page #[phone]) Pediatric: Pediatric Pain Service #[id number] (if this is an after h ours emergency, page #[phone]) Admin Instructions: For peripheral nerve block Peripheral [...] home pump made. Victor Manuel Crowley M.D. Gym Supervisor General Orthopaedics, Trauma documented in this encount [...] Procedure Note | + + | Marilee Cueavs - 02/10/2008 5:30 PM PDT | + [...] | | + +---------+ + + | [facility] | | | | | RADIOLOGY | | | | + +---------+ + + OPERATION RECORD (02/10/2008 12:00 AM PDT) + + + | Narrative | Performed At | + + + | [id number] | | | [id number] | | | [id number] [facility] Cosby [id number] | | | Date: 02/10/2008 Attending Surgeon: | | | Victor Manuel Crowley M.D. Oil And Gas Field Technician(s): | | | Wolf Storm M.D. Preoperative [...] | | will do pendulum and gentle wfmio-zd-jimgpr exercises to avoid | | | shoulder [...] | | | room #4 in the [facility] operating room suite at the [facility] and | | | [place], placed supine on the OR table, and [...] | irrigated and closed in layers using qqeogx-jk-jiios 0 Vicryl for | | | the [...] Victor Manuel Crowley M.D. ELLIOTT / MARVIN [id number] / [id number] / [id number] / D: | | | 02/10/2008 | | + + + + + | Procedure Note | + + | Victor Manuel Crowley MD - 02/10/2008 12:00 AM PDT [id number] | | [id number] [facility] | | L [id number] Date: 02/10/2008 Attending Surgeon: | | Victor Manuel Crowley M.D. Oil And Gas Field Technician(s): Wolf Storm M.D. | | Preoperative Diagnosis(es):1. [...] will do | | pendulum and gentle ffqet-rp-yzmlgd exercisesto avoid shoulder stiffness. In | | [...] to the operating room #4 in the [facility] operating room suiteat the [facility] | | and [facility], placed supine on the OR table,and [...] and closed in | | layers using xrmzto-vt-apjeg 0 Vicryl for thedeltotrapezial fascia, inverted 2-0 [...] the OR. Victor Manuel Crowley M.D. / [id number] / [id number] / [id number] /D: | | 02/10/2008T: 02/11/2008 | | | |Postoperative Plan: | |Ms. Leong to use a sling to support the weight of the arm for the next | |6 to 12 weeks. She will do pendulum and gentle xtnoy-ty-mujizp exercises | |to avoid shoulder stiffness. In [...] to the operating room #4 in the [facility] operating room suite | |at the [facility] and [facility], placed supine on the OR table, [...] | |irrigated and closed in layers using vdqtbs-co-duiwh 0 Vicryl for the | |deltotrapezial fascia, [...] | | | | | / | |[id number] / [id number] / [id number] / | | | | | | [...]
--- OUTSIDE RECORDS SUMMARY | ~2019-01-26 | XMS | Encounter Summary ---
Demographics + + + | Address | [address] | | | [place] [address] | + + + | Home Phone [...] Author + + + | Author | [facility] | + + + | Organization | [facility] | + + + | Address | Unknown | + + + | Phone | Unavailable | + + + Support + + + + + | Name | Relationship | Address | Phone | + + + + + | Nurys Flores | ECON | [address] | | | | | [place], | | | | | [place] [address] | | + + + + + Care Team Providers + +------+ + | Care Monorail Operator Name | Role | Phone | + +------+ + PCP | Unavailable | + +------+ + Encounter Details +--------+ + + + + | Date | Type | Department | Care Team | Description | +--------+ + + + + | 12/08/ | Results | Registration [id number] | [facility], Faculty | | | 2006 | Only | [address] | [phone] | | | | | Rd Mailcode: [address] | | | | | | [place], [place] | | | | | | [address] | | | | | | [phone] | | | +--------+ + + + [...] + + + + | PRODUCT | [id number] | | [facility] | | | UNIT [...] | + + + + + | [facility] DEPARTMENT OF | [address] [facility] [address] | [place] [address] | | | PATHOLOGY | [address] | | | + + + + + | [facility] DEPARTMENT OF | [address] [facility] [address] | [place] [address] | | | PATHOLOGY | [address] [...] | + + + + + | [facility] DEPARTMENT OF | [address] | [place] [address] | | | PATHOLOGY | [address] | | | + + + + + | [facility] DEPARTMENT OF | [address] | [place] [address] | | | PATHOLOGY | [address] | | | + + + + + documented in this encounter Visit Diagnoses Not on filedocumented in this encounter"
--- OUTSIDE RECORDS SUMMARY | ~2019-01-26 | XMS | Encounter Summary ---
Demographics + + + | Address | [address] | | | [place] [address] | + + + | Home Phone | | + + + | Preferred Language | Unknown | + + + | Marital Status | Single | + + + | Mandaen Affiliation | EPI | + + + | Race | White | + + + | Ethnic Group | Not or | + + + Author + + + | Author | [facility] | + + + | Organization | [facility] | + + + | Address | Unknown | + + + | Phone | Unavailable | + + + Support + + + + + | Name | Relationship | Address | Phone | + + + + + | Nurys Flores | ECON | [address] | | | | | [place], | | | | | [place] [address] | | + + + + + Care Team Providers + +------+ + | Care Final Assembly And Packing Supervisor Name | Role | Phone | + [...] | | | | Mailcode: Center | [place], [place] | | | | | [facility] and | [address] | | | | | [facility] [address] | [phone] | | | | | [place], [place] | | | | | | [address] | | | | | | [phone] | | | +--------+ + + + [...] | | + +---------+ + + | [facility] DEPARTMENT OF | | [...] | | | | | CONTRAST | M.DKiaa-Radiologist 2: | | | | | | [...] | | | | | | the [facility] resident on | | | | | | call at 9:14 a.m. | | | | + + + + + + + + | Specimen | + + | | + + + +---------+ + + | Performing | Address | City/State/Zipcode | Phone Number | | Organization | | | | + +---------+ + + | [facility] DEPARTMENT OF | | [...] | | + +---------+ + + | [facility] DEPARTMENT OF | | [...] | | + +---------+ + + | [facility] DEPARTMENT OF | | [...] | + + + + + | [facility] DEPARTMENT OF | [address] | [place] [address] | | | PATHOLOGY | [address] | | | + + + + + | [facility] | [address] | [place] [address] | | | PATHOLOGY | [address] | | | + + + + + documented in this encounter Visit Diagnoses Not on filedocumented in this encounter"
--- OUTSIDE RECORDS SUMMARY | ~2019-01-26 | XMS | Encounter Summary ---
Demographics + + + | Address | [address] | | | [place] [address] | + + + | Home Phone | | + + + | Preferred Language | Unknown | + + + | Marital Status | Single | + + + | Scientology Affiliation | EPI | + + + [...] + | Nurys Flores | ECON | [address] | | | | | [place], | | | | | [place] [address] | | + + + + + Care Team Providers + +------+ + | Care Office Clerk Routine Name | Role | Phone | + [...] Rd | | | | | | [place], [place] | | | | | | [address] | | | +--------+ + + + [...] | 12/09/2006 12:00 AM PDT | | [id number] | | [id number] [facility] BUCIO [id number] | | | | Date: 12/09/2006 | | | | Attending Surgeon: Elmer Matthews M.D. | | | | | | Data Collection Technician(s): Stephanie Hart M.D. | | | | [...] hamilton of blood back. A | | 36-English chest tube was then placed and advanced [...] | | | | | | | Stephnaie Hart M.D. | | | | | | | | Elmer Matthews M.D. | | | | / | | [id number] / [id number] / [id number] / | | | | | | | | | | | | Reviewed or Edited By Stephanie Hart on 12-15-2006 | | Electronically signed by Elmer Matthews 12-21-2006 12:40:14 PM | | MedRecNo: [id number], Account: [id number], DocSeq: [id number] | | Persuant to medicare and medicaid regulations, I was present for the | | critical portions of the procedure. | | Electronically signed by Elmer Matthews 12-21-2006 12:40:10 PM | | | | | + + documented in this encounter Visit Diagnoses Not on filedocumented in this encounter"
--- OUTSIDE RECORDS SUMMARY | ~2019-01-26 | XMS | Encounter Summary ---
Demographics + + + | Address | [address] | | | [place] [address] | + + + | Home Phone | | + + + | Preferred Language | Unknown | + + + | Marital Status | Single | + + + | Denominational Affiliation | EPI | + + + [...] + | Nurys Flores | ECON | [id number] | | | | | [place], | | | | | [place] [address] | | + + + + + Care Team Providers + +------+ + | Care Sander Operator Name | Role | Phone | + +------+ + | Juanjo Ro MD | PCP | | + +------+ + Encounter Details +--------+ + + + + | Date | Type | Department | Care Team | Description | +--------+ + + + + | 07/12/ | Hospital | Diagnostic | | | | 2008 | Encounter | Radiology at [facility] | | | | | | [address] | | | | | | [place] Mailcode: | | | | | | [address] Physician's | | | | | | [place], | | | | | | [place] [address] | | | | | | [phone] | | | +--------+ + + + [...] + | X-RAY CLAVICLE | Routin | 07/12/2008 | Clavicle Fracture | Results for this | | BILATERAL | e | 3:23 PM | | procedure are in the | | | | PDT | | results section. | + +--------+ + + + documented in this encounter Results X-RAY CLAVICLE COMPLETE (07/12/2008 [...] | | + +---------+ + + | [facility] DEPARTMENT OF | | | | | RADIOLOGY | | | | + +---------+ + + documented in this encounter Visit Diagnoses + + | Diagnosis | + + | Clavicle fracture Unspecified part of closed fracture of clavicle | + + documented in this encounter"
--- OUTSIDE RECORDS SUMMARY | ~2019-01-26 | XMS | Encounter Summary ---
Demographics + + + | Address | [address] | | | [place] [address] | + + + | Home Phone | | + + + | Preferred Language | Unknown | + + + | Marital Status | Single | + + + | Presybeterian Affiliation | EPI | + + + | Race | White | + + + | Ethnic Group | Not or | + + + Author + + + | Author | [facility] | + + + | Organization | [facility] | + + + | Address | Unknown | + + + | Phone | Unavailable | + + + Support + + + + + | Name | Relationship | Address | Phone | + + + + + | Nurys Flores | ECON | [address] | | | | | [place], | | | | | [place] [address] | | + + + + + Care Team Providers + +------+ + | Care Network Diagnostic Support Specialist Name | Role | Phone [...] [id number] | | | | | | [place], [place] | | | | | | [address] | | | | | | [phone] | | | +--------+ + + + [...] | | + +---------+ + + | [facility] DEPARTMENT OF | | | [...] | | + +---------+ + + | [facility] DEPARTMENT OF | | | | | RADIOLOGY | | | | + +---------+ + + documented in this encounter Visit Diagnoses Not on filedocumented in this encounter"
--- OUTSIDE RECORDS SUMMARY | ~2019-01-26 | XMS | Encounter Summary ---
Demographics + + + | Address | [address] | | | [place] [address] | + + + | Home Phone [...] + + + | Author | [facility] | + + + | Organization | [facility] | + + + | Address | Unknown | + + + | Phone | Unavailable | + + + Support + + + + + | Name | Relationship | Address | Phone | + + + + + | Nurys Flores | ECON | [phone] | | | | | [place], | | | | | [place] [address] | | + + + + + Care Team Providers + +------+ + | Care Assistant Finance Manager Name | Role | Phone | [...] [address] | | | | | | [place], [place] | | | | | | [address] | | | | | | [phone] | | | +--------+---------+ + + + [...]
--- OUTSIDE RECORDS SUMMARY | ~2019-01-26 | XMS | Encounter Summary ---
Demographics + + + | Address | [address] | | | [place] [address] | + + + | Home Phone [...] Author + + + | Author | [facility] | + + + | Organization | [facility] | + + + | Address | Unknown | + + + | Phone | Unavailable | + + + Support + + + + + | Name | Relationship | Address | Phone | + + + + + | Nurys Flores | ECON | [phone] | | | | | [place], | | | | | [place] [address] | | + + + + + Care Team Providers + +------+ + | Care Director Of Intercollegiate Athletics Name | Role | Phone | + [...] | Alex Mailcode: [id number] | [address] [place], | | | | | [place], [place] | [place] [address] | | | | | [address] | [phone] | | | | | [phone] | | | +--------+ + + + [...] | + +---------+ + + | [facility] DEPARTMENT OF | | | [...] | + +---------+ + + | [facility] DEPARTMENT OF | | | | | RADIOLOGY | | | | + +---------+ + + documented in this encounter Visit Diagnoses Not on filedocumented in this encounter"
--- OUTSIDE RECORDS SUMMARY | ~2019-01-26 | XMS | Encounter Summary ---
Demographics + + + | Address | [address] | | | [place] [address] | + + + | Home Phone | | + + + | Preferred Language | Unknown | + + + | Marital Status | Single | + + + | Roman Catholic Affiliation | EPI | + + [...] + | Nurys Flores | ECON | [address] | | | | | [place], | | | | | [place] [address] | | + + + + + Care Team Providers + +------+ + | Care Director Of Conservation Name | Role | Phone | + +------+ + | Svetlana Cedillo | PCP | | | MD | | | + +------+ + Encounter Details +--------+ + + + + | Date | Type | Department | Care Team | Description | +--------+ + + + + | 05/02/ | Cellar Supervisor | Orthopaedics at | Victor Manuel Crowley MD | Clavicle Fracture | | 2008 | | [facility] [address] | | (Primary Dx) | | | | [address] | | | | | | Mailcode: [id number] | | | | | | [facility] | | | | | | [place], [place] | | | | | | [address] | | | | | | [phone] | | | +--------+ + + + [...]
--- OUTSIDE RECORDS SUMMARY | ~2019-01-26 | XMS | Encounter Summary ---
Demographics + + + | Address | [address] | | | [place] [address] | + + + | Home Phone | | + + + | Preferred Language | Unknown | + + + | Marital Status | Single | + + + | Jainism Affiliation | EPI | + + + [...] + | Nurys Flores | ECON | [address] | | | | | [place], | | | | | [place] [address] | | + + + + + Care Team Providers + +------+ + | Care Crusher Loader Equipment Operator Name | Role | Phone | + +------+ + | Svetlana Cedillo | PCP | | | MD | | | + +------+ + Encounter Details +--------+ + + + + | Date | Type | Department | Care Team | Description | +--------+ + + + + | 01/03/ | Manager Portable | Orthopaedics at | Victor Manuel Crowley MD | Clavicle Fracture | | 2007 | | [facility] [address] | | (Primary Dx) | | | | [place] Mailcode: CH12A | | | | | | [facility] | | | | | | and Healing, | | | | | | [facility] | | | | | | Floor [place], [place] | | | | | | [address] | | | | | | [phone] | | | +--------+ + + + [...]
--- OUTSIDE RECORDS SUMMARY | ~2019-01-26 | XMS | Encounter Summary ---
Demographics + + + | Address | [address] | | | [place] [address] | + + + | Home Phone | | + + + | Preferred Language | Unknown | + + + | Marital Status | Single | + + + | Baptism Affiliation | EPI | + + + [...] + | Nurys Flores | ECON | [id number] | | | | | [place], | | | | | [place] [address] | | + + + + + Care Team Providers + +------+ + | Care Faucets Assembler Name | Role | Phone | + [...] | | 2006 | Only | [facility] [address] | | | | | | [address] | | | | | | Mailcode: [id number] | | | | | | [facility] | | | | | | [place], [place] | | | | | | [address] | | | | | | [phone] | | | +--------+ + + + [...]
--- OUTSIDE RECORDS SUMMARY | ~2019-01-26 | XMS | Encounter Summary ---
Demographics + + + | Address | [address] | | | [place] [address] | + + + | Home Phone | | + + + | Preferred Language | Unknown | + + + | Marital Status | Single | + + + | Lutheran Affiliation | EPI | + + + | Race | White | + + + | Ethnic Group | Not or | + + + Author + + + | Author | [facility] | + + + | Organization | [facility] | + + + | Address | Unknown | + + + | Phone | Unavailable | + + + Support + + + + + | Name | Relationship | Address | Phone | + + + + + | Nurys Flores | ECON | [address] | | | | | [place], | | | | | [place] [address] | | + + + + + Care Team Providers + +------+ + | Care Customer Success Specialist Name | Role | Phone | [...] | Alex Mailcode: [id number] | Mazin Johnson [place], | | | | | [place], [place] | [place] [address] | | | | | [address] | [phone] | | | | | [phone] | | | +--------+ + + + [...] | + + + + + | [facility] | [address] [place] [address] | [place] [address] | | | PATHOLOGY | [address] | | | + + + + + | [facility] DEPARTMENT OF | [address] [place] [address] | [place] [address] | | | PATHOLOGY | [address] [...] DEPARTMENT OF | [address] | [place] [address] | | | PATHOLOGY | [address] | | | + + + + + | [facility] DEPARTMENT OF | [address] | [place] [address] | | | PATHOLOGY | [address] | | | + + + + + AMMONIA (12/12/2006 3:10 PM PDT) + +--------+ + + + | Component | Value | Ref Range | Performed | Pathologist | | | | | At | Signature | + +--------+ + + + | AMMONIA | 40 (H) | 11 - 35 umol/L | [facility] | | | (LAB) | | | [...] + + | [facility] DEPARTMENT | [address] [facility] | [place] [address] | | | PATHOLOGY | [address] | | | + + + + + | [facility] | [address] [facility] | [place] [address] | | | PATHOLOGY | [address] [...] | [address] | [place] [address] | | | PATHOLOGY | [address] | | | + + + + + | [facility] DEPARTMENT OF | [address] | [place] [address] | | | PATHOLOGY | [address] [...] [facility] DEPARTMENT OF | [address] | [place] [address] | | | PATHOLOGY | [address] | | | + + + + + | [facility] DEPARTMENT OF | [address] | [place] [address] | | | PATHOLOGY | [address] [...] | + + + + + | [facility] | [address] [facility] | [place] [address] | | | PATHOLOGY | [address] | | | + + + + + | [facility] | [address] [facility] | [place] [address] | | | PATHOLOGY | [address] [...] [facility] DEPARTMENT OF | [address] [facility] | [place] [address] | | | PATHOLOGY | [address] | | | + + + + + | [facility] DEPARTMENT OF | [address] [facility] | [place] [address] | | | PATHOLOGY | [address] [...] | + + + + + | [facility] | [address] [facility] | [place] [address] | | | PATHOLOGY | [address] | | | + + + + + | [facility] | [address] [facility] | [place] [address] | | | PATHOLOGY | [address] [...] | + + + + + | [facility] | [address] [facility] | [place] [address] | | | PATHOLOGY | [address] | | | + + + + + | [facility] | [address] [facility] | [place] [address] | | | PATHOLOGY | [address] [...] | [facility] DEPARTMENT OF | [facility] | [place] [address] | | | PATHOLOGY | [address] | | | + + + + + | [facility] DEPARTMENT OF | [facility] | [place] [address] | | | PATHOLOGY | [address] [...] | + + + + + | [facility] | [address] [facility] | [place] [address] | | | PATHOLOGY | [address] | | | + + + + + | [facility] | [address] [facility] | [place] [address] | | | PATHOLOGY | [address] [...] | [facility] DEPARTMENT OF | [address] | [place] [address] | | | PATHOLOGY | [address] | | | + + + + + | [facility] DEPARTMENT OF | [address] | [place] [address] | | | PATHOLOGY | [address] [...] DEPARTMENT OF | [address] | [place] [address] | | | PATHOLOGY | [address] | | | + + + + + | [facility] DEPARTMENT OF | [address] | [place] [address] | | | PATHOLOGY | [address] [...] | + + + + + | [facility] | [address] [facility] | [place] [address] | | | PATHOLOGY | [address] | | | + + + + + | [facility] | [address] [facility] | [place] [address] | | | PATHOLOGY | [address] [...] DEPARTMENT OF | [address] | [place] [address] | | | PATHOLOGY | [address] | | | + + + + + | [facility] DEPARTMENT OF | [address] | [place] [address] | | | PATHOLOGY | [address] [...] DEPARTMENT OF | [address] | [place] [address] | | | PATHOLOGY | [address] | | | + + + + + | [facility] DEPARTMENT OF | [address] | [place] [address] | | | PATHOLOGY | [address] [...] [facility] DEPARTMENT OF | [address] | [place] [address] | | | PATHOLOGY | [address] | | | + + + + + | [facility] | [address] | [place] [address] | | | PATHOLOGY | [address] [...] DEPARTMENT OF | [address] | [place] [address] | | | PATHOLOGY | [address] | | | + + + + + | [facility] DEPARTMENT OF | [address] | [place] [address] | | | PATHOLOGY | [address] | | | + + + + + PHOSPHORUS, PLASMA (12/09/2006 4:10 AM PDT) + +-------+ + + + | Component | Value | Ref Range | Performed | Pathologist | | | | | At | Signature | + +-------+ + + + | PHOSPHORUS, | 2.4 | 2.4 - 4.7 mg/dL | [facility] | | | PLASMA | | [...] | + + + + + | [facility] | [address] | [place] [address] | | | PATHOLOGY | [address] | | | + + + + + | [facility] | [facility] | [place] [address] | | | PATHOLOGY | [address] [...] [facility] DEPARTMENT OF | [address] [facility] | [place] [address] | | | PATHOLOGY | [address] | | | + + + + + | [facility] DEPARTMENT OF | [address] [place] [address] | [place] [address] | | | PATHOLOGY | [address] [...] + + | [facility] DEPARTMENT | [address] [facility] | [place] [address] | | | PATHOLOGY | [address] | | | + + + + + | [facility] | [address] [facility] | [place] [address] | | | PATHOLOGY | [address] [...] + + | [facility] DEPARTMENT | [address] [facility] | [place] [address] | | | PATHOLOGY | [address] | | | + + + + + | [facility] | [facility] | [place] [address] | | | PATHOLOGY | [address] [...] + | [facility] DEPARTMENT OF | [address] [facility] | [place] [address] | | | PATHOLOGY | [address] | | | + + + + + | [facility] DEPARTMENT OF | [address] [facility] | [place] [address] | | | PATHOLOGY | [address] [...] + + | [facility] DEPARTMENT OF | [facility] | [place] [address] | | | PATHOLOGY | [address] | | | + + + + + | [facility] DEPARTMENT OF | [address] [facility] | [place] [address] | | | PATHOLOGY | [address] [...] | + + + + + | [facility] | [address] [facility] | [place] [address] | | | PATHOLOGY | [address] | | | + + + + + | [facility] | [address] [facility] | [place] [address] | | | PATHOLOGY | [address] [...] [facility] DEPARTMENT OF | [address] | [place] [address] | | | PATHOLOGY | [address] | | | + + + + + | [facility] DEPARTMENT OF | [address] | [place] [address] | | | PATHOLOGY | [address] [...] | + + + + + | [facility] | [address] | [place] [address] | | | PATHOLOGY | [address] | | | + + + + + | [facility] | [address] | [place] [address] | | | PATHOLOGY | [address] [...] | + + + + + | [facility] | [address] [facility] | [place] [address] | | | PATHOLOGY | [address] | | | + + + + + | [facility] | [address] [facility] | [place] [address] | | | PATHOLOGY | [address] [...] DEPARTMENT OF | [address] | [place] [address] | | | PATHOLOGY | [address] | | | + + + + + | [facility] DEPARTMENT OF | [address] | [place] [address] | | | PATHOLOGY | [address] | | | + + + + + BASIC METABOLIC SET (NA,K,CL,BUN,CR,GLU,CO2,CA) (12/08/2006 4:30 AM PDT) + +---------+ + + + | Component | Value | Ref Range | Performed | Pathologist | | | | | At | Signature | + +---------+ + + + | GLUCOSE, | 97 | 60 - 99 mg/dL | [facility] | | | PLASMA | | [...] [facility] DEPARTMENT OF | [address] [facility] | [place] [address] | | | PATHOLOGY | [address] | | | + + + + + | [facility] DEPARTMENT OF | [facility] | [place] [address] | | | PATHOLOGY | [address] [...] + + | [facility] DEPARTMENT | [address] | [place] [address] | | | PATHOLOGY | [address] | | | + + + + + | [facility] | [address] [facility] | [place] [address] | | | PATHOLOGY | [address] [...] | + + + + + | [facility] | [address] [place] [address] | [place] [address] | | | PATHOLOGY | [address] | | | + + + + + | [facility] | [address] [place] [address] | [place] [address] | | | PATHOLOGY | [address] [...] + | [facility] DEPARTMENT OF | [address] [facility] | [place] [address] | | | PATHOLOGY | [address] | | | + + + + + | [facility] DEPARTMENT OF | [address] [facility] | [place] [address] | | | PATHOLOGY | [address] [...] | [facility] DEPARTMENT OF | [address] [facility] | [place] [address] | | | PATHOLOGY | [address] | | | + + + + + | [facility] DEPARTMENT OF | [address] [facility] | [place] [address] | | | PATHOLOGY | [address] [...] | [address] | [place] [address] | | | PATHOLOGY | [address] | | | + + + + + | [facility] DEPARTMENT OF | [address] | [place] [address] | | | PATHOLOGY | [address] | | | + + + + + MAGNESIUM, PLASMA (12/07/2006 2:55 PM PDT) + +-------+ + + + | Component | Value | Ref Range | Performed | Pathologist | | | | | At | Signature | + +-------+ + + + | MAGNESIUM,P | 2.4 | 1.8 - 2.5 mg/dL | [facility] | | | LASMA | | [...] [facility] DEPARTMENT OF | [address] | [place] [address] | | | PATHOLOGY | [address] | | | + + + + + | [facility] DEPARTMENT OF | [address] | [place] [address] | | | PATHOLOGY | [address] [...] DEPARTMENT OF | [address] | [place] [address] | | | PATHOLOGY | [address] | | | + + + + + | [facility] DEPARTMENT OF | [address] | [place] [address] | | | PATHOLOGY | [address] [...] [facility] DEPARTMENT OF | [address] | [place] [address] | | | PATHOLOGY | [address] | | | + + + + + | [facility] DEPARTMENT | [address] | [place] [address] | | | PATHOLOGY | [address] [...] DEPARTMENT OF | [address] | [place] [address] | | | PATHOLOGY | [address] | | | + + + + + | [facility] DEPARTMENT OF | [address] | [place] [address] | | | PATHOLOGY | [address] | | | + + + + + MAGNESIUM, PLASMA (12/07/2006 10:00 AM PDT) + +---------+ + + + | Component | Value | Ref Range | Performed | Pathologist | | | | | At | Signature | + +---------+ + + + | MAGNESIUM,P | 1.6 (L) | 1.8 - 2.5 mg/dL | [facility] | | | LASMA | | [...] | [facility] DEPARTMENT OF | [address] [facility] | [place] [address] | | | PATHOLOGY | [address] | | | + + + + + | [facility] DEPARTMENT OF | [address] [facility] | [place] [address] | | | PATHOLOGY | [address] [...] | + + + + + | [facility] | [address] [facility] | [place] [address] | | | PATHOLOGY | [address] | | | + + + + + | [facility] | [address] [facility] | [place] [address] | | | PATHOLOGY | [address] [...] DEPARTMENT OF | [address] | [place] [address] | | | PATHOLOGY | [address] | | | + + + + + | [facility] DEPARTMENT OF | [address] | [place] [address] | | | PATHOLOGY | [address] [...] (H) | 2.4 - 4.7 mg/dL | [facility] | | | PLASMA | | | [...] DEPARTMENT OF | [address] | [place] [address] | | | PATHOLOGY | [address] | | | + + + + + | [facility] DEPARTMENT OF | [address] | [place] [address] | | | PATHOLOGY | [address] [...] [facility] DEPARTMENT OF | [address] | [place] [address] | | | PATHOLOGY | [address] | | | + + + + + | [facility] DEPARTMENT OF | [address] | [place] [address] | | | PATHOLOGY | [address] [...] + | [facility] DEPT OF | [address] [facility] | [place], [place] | | | CARDIOLOGY | [address] | [address] | | + + + + + | [facility] DEPT OF | [address] [facility] | [place], [place] | | | CARDIOLOGY | [email or web address] | [address] | | + + + + + [...] DEPARTMENT OF | [address] | [place] [address] | | | PATHOLOGY | [address] | | | + + + + + | [facility] DEPARTMENT OF | [address] | [place] [address] | | | PATHOLOGY | [address] [...] DEPARTMENT OF | [address] | [place] [address] | | | PATHOLOGY | [address] | | | + + + + + | [facility] DEPARTMENT | [address] [facility] | [place] [address] | | | PATHOLOGY | [address] [...] DEPARTMENT OF | [address] | [place] [address] | | | PATHOLOGY | [address] | | | + + + + + | [facility] DEPARTMENT OF | [address] | [place] [address] | | | PATHOLOGY | [address] [...] (H)Comment: | 0.90 - 1.20 INR | [facility] | | | | PT INR [...] DEPARTMENT OF | [address] | [place] [address] | | | PATHOLOGY | [address] | | | + + + + + | [facility] DEPARTMENT OF | [address] | [place] [address] | | | PATHOLOGY | [address] [...] | [facility] DEPARTMENT OF | [facility] | [place] [address] | | | PATHOLOGY | [address] | | | + + + + + | [facility] DEPARTMENT OF | [address] | [place] [address] | | | PATHOLOGY | [address] [...] + + | [facility] DEPARTMENT | [address] [place] [address] | [place] [address] | | | PATHOLOGY | [address] | | | + + + + + | [facility] DEPARTMENT | [address] [facility] | [place] [address] | | | PATHOLOGY | [address] [...] [facility] DEPARTMENT OF | [address] | [place] [address] | | | PATHOLOGY | [address] | | | + + + + + | [facility] DEPARTMENT OF | [address] | [place] [address] | | | PATHOLOGY | [address] | | | + + + + + documented in this encounter Visit Diagnoses Not on filedocumented in this encounter
--- OUTSIDE RECORDS SUMMARY | ~2019-01-26 | XMS | Encounter Summary ---
Demographics + + + | Address | [address] | | | [place] [address] | + + + | Home Phone | | + + + | Preferred Language | Unknown | + + + | Marital Status | Single | + + + | Zoroastrianism Affiliation | EPI | + + + [...] + | Nurys Flores | ECON | [address] | | | | | [place], | | | | | [place] [address] | | + + + + + Care Team Providers + +------+ + | Care Boilermaker Welder Name | Role | Phone | + [...] Fx | | | | [address], | | Clavicle NOS-Closed; | | | | [place] [address] | | Spine Injury | | | | [phone] | | | +--------+---------+ + + + [...]
--- OUTSIDE RECORDS SUMMARY | ~2019-01-26 | XMS | Encounter Summary ---
Demographics + + + | Address | [address] | | | [place] [address] | + + + | Home Phone [...] + + | Author | [facility] | + + + | Organization | [facility] | + + + | Address | Unknown | + + + | Phone | Unavailable | + + + Support + + + + + | Name | Relationship | Address | Phone | + + + + + | Nurys Flores | ECON | [address] | | | | | [place], | | | | | [place] [address] | | + + + + + Care Team Providers + +------+ + | Care Dumpman Name | Role | Phone | + +------+ + | Juajno Ro MD | PCP | | + [...] | | | | | | [place] [address] | | | | | | [phone] | | | +--------+ + + + [...]
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
--- OUTSIDE RECORDS SUMMARY | ~2019-01-26 | XMS | Encounter Summary ---
Demographics + + + | Address | [address] | | | [place] [address] | + + + | Home Phone [...] + | Nurys Flores | ECON | [address] | | | | | [place], | | | | | [place] [address] | | + + + + + Care Team Providers + +------+ + | Care Test Baker Name | Role | Phone | + +------+ + PCP | Unavailable | + +------+ + Encounter Details +--------+ + + + + | Date | Type | Department | Care Team | Description | +--------+ + + + + | 12/09/ | Results | Registration [address] | Ildefonso Hays MD | | | 2006 | Only | [address] | [facility] & | | | | | Alex Mailcode: [id number] | [facility] | | | | | [place], [place] | [address] | | | | | [address] | Esthela Johnson [place], | | | | | [phone] | [place] [address] | | +--------+ + + + + [...] | | + +---------+ + + | [facility] DEPARTMENT OF | | | | [...] | | + +---------+ + + | [facility] DEPARTMENT OF | | | | | RADIOLOGY | | | | + +---------+ + + documented in this encounter Visit Diagnoses Not on filedocumented in this encounter"
--- OUTSIDE RECORDS SUMMARY | ~2019-01-26 | XMS | Encounter Summary ---
Demographics + + + | Address | [address] | | | [place] [address] | + + + | Home Phone | | + + + | Preferred Language | Unknown | + + + | Marital Status | Single | + + + | Anabaptist Affiliation | EPI | + + + [...] + | Nurys Flores | ECON | [id number] | | | | | [place], | | | | | [place] [address] | | + + + + + Care Team Providers + +------+ + | Care Tube Bender Hand Name | Role | Phone | + [...] | | | | | other | [place], [place] | [id number] | | | | | specified | [address] | Physician's | | | | | sites of | | Pavilion | | | | | shoulder and | | [place], [place] | | | | | upper arm | | [address] | | | | | left distal | | Phone: | | | | | clavicle | | [phone] | | | | | nonuion wiht | | Fax: | | | | | medial | | [phone] | | | | | coracoclavic | | | | | | | ular | | | | | | | ligament | | | | | | | rupture | | | | | | | Procedures | | | | | | | MT PART | | | | | | | EXCIS | | | | | | | CLAVICLE MT | | | | | | | PARTIAL | | | | | | | REMOVAL, | | | | | | | CLAVICLE MT | | | | | | | [...] [place] | | | | | | [place], [place] | | | | | | [address] | | | | | | [phone] | | | +--------+---------+ + + + [...] injury. She is engaged and lives in [place]. Physical Examination: Patient is alert and oriented [...]
--- OUTSIDE RECORDS SUMMARY | ~2019-01-26 | XMS | Encounter Summary ---
Demographics + + + | Address | [address] | | | [place] [address] | + + + | Home Phone [...] + | Nurys Flores | ECON | [id number] | | | | | [place], | | | | | [place] [address] | | + + + + + Care Team Providers + +------+ + | Care Bailiff Name | Role | Phone | + [...] | | | | | | [place] [address] | | | | | | [phone] | | | +--------+ + + + [...] | SHOULDER 3+ | Med Rec No: [id number] | | | | | VIEWS | Name: | | | | | RIGHT | FORTUNATO LEONG | | | | | | Birthday: 1965 | | | | | | Sex: F | | | | | | Alias:Patient Location: | | | | | | [id number]: Outpatient | | | | | | ActiveOrdering | | | | | | Physician: THOMAS | | | | | | Fede [id number] | | | | | | SHOULDER 3 VIEWS RIGHT | | | | | | completed on 08/02/2008 | | | | | | 3:51 PMAccession # | | | | | | [id number]:RIGHT | | | | | | SHOULDER, [...] | | + +---------+ + + | [facility] DEPARTMENT OF | | | [...]
--- OUTSIDE RECORDS SUMMARY | ~2019-01-26 | XMS | Encounter Summary ---
Demographics + + + | Address | [address] | | | [place] [address] | + + + | Home Phone | | + + + | Preferred Language | Unknown | + + + | Marital Status | Single | + + + | Mu-Ism Affiliation | EPI | + + + | Race | White | + + + | Ethnic Group | Not or | + + + Author + + + | Author | [facility] | + + + | Organization | [facility] | + + + | Address | Unknown | + + + | Phone | Unavailable | + + + Support + + + + + | Name | Relationship | Address | Phone | + + + + + | Nurys Flores | ECON | [id number] | | | | | [place], | | | | | [place] [address] | | + + + + + Care Team Providers + +------+ + | Care Paper Box Cutter Name | Role | Phone | [...] [address] | | | | | [place], [place] | [place] [address] | | | | | [address] | [phone] | | | | | [phone] | | | +--------+ + + + [...] | | + +---------+ + + | [facility] DEPARTMENT OF | | [...]
--- OUTSIDE RECORDS SUMMARY | ~2019-01-26 | XMS | Encounter Summary ---
Demographics + + + | Address | [address] | | | [place] [address] | + + + | Home Phone [...] + | Nurys Flores | ECON | [address] | | | | | [place], | | | | | [place] [address] | | + + + + + Care Team Providers + +------+ + | Care Skein Winder Name | Role | Phone | + [...] | | | | | Procedures | [facility] [place] | [address] | | | | | MRI | [id number] | [place] | | | | | [address]OULDER [address] | | Research | | | | | WO CONT | | [place] | | | | | | | [place], [place] | | | | | | | [address] | | | | | | | Phone: | | | | | | | [phone] | | | | | | | Fax: | | | | | | | [phone] | +--------+--------+ + + + + Encounter Details +--------+ + + + + | Date | Type | Department | Care Team | Description | +--------+ + + + + | 08/12/ | Hospital | Diagnostic Imaging | | | | 2008 | Encounter | Services at [facility] | | | | | | [address] | | | | | | Esthela Johnson Mailcode: | | | | | | [address] [place] | | | | | | [facility] | | | | | | [place], [place] | | | | | | [address] | | | | | | [phone] | | | +--------+ + + + [...]
[~2019-01-26 13:10] MED LIST: ACETAMINOPHEN-1 EAC2 PO; ALEVE220 MG PO; CLINDAMYCIN HC300 MG PO; ESTRACE0.5 MG; ESTROGEN-METHY1 EAC3 PO; FLAGYL500 MG PO; IMODIUM MULTI-1 EACH PO; MEDROXYPROGESTE10 MG PO; NICOTINE PATCH1 EACH TD; NORCO 5-325 TA1 EACH PO; OMEPRAZOLE20 MG PO; TYLENOL WITH C1 EACH PO
[2019-01-26] MEDS ORDERED: LIDODERM1 EACH TD (13:36)
[2019-01-26] MEDS ORDERED: NAPROSYN500 MG PO (13:36)
== END 2019-01-26 13:46 | disposition home or self-care (01) ==
LOC: ED 13:10
DX: S46.811A Strain of other muscles, fascia and tendons at shoulder and upper arm level, right arm, initial encounter (principal); F17.200 Nicotine dependence, unspecified, uncomplicated; Z88.0 Allergy status to penicillin; W18.30XA Fall on same level, unspecified, initial encounter
CPT/HCPCS: 99283

== ENCOUNTER → 2020-06-14 | Emergency (ER) | payer OTHER ==
[~2020-06-14] VITALS: Ht 167.6 cm; Wt 63.5 kg
[~2020-06-14] MED LIST changes: +LIDODERM1 EACH TD; +NAPROSYN500 MG PO
--- NOTE | 2020-06-14 15:11 | EKG ---
[facility] [address] [facility] [place], [place] [address] Signed Normal sinus rhythm Incomplete right bundle branch block ST \T\ T wave abnormality, consider anterior ischemia Prolonged QT Abnormal ECG No previous ECGs available Confirmed by GINA KING MD ([id number]) on 06/14/2020 3:11:41 PM Electronically Signed By: GINA KING MD 06/14/20 1511 PATIENT NAME: FORTUNATO VERGARA Electrocardiogram DATE OF : 61 PHYSICIAN: GINA KING MD REPORT #: [id number] REPORT IS CONFIDENTIAL AND NOT TO BE RELEASED WITHOUT AUTHORIZATION
== END ==
LOC: ED 03:55
DX: I70.201 Unspecified atherosclerosis of native arteries of extremities, right leg (principal); F17.200 Nicotine dependence, unspecified, uncomplicated; Z88.0 Allergy status to penicillin
CPT/HCPCS: 80053; 85025; 85610; 85730; 93005; 93010; 93926; 96374; 96375; 96376; 99285-25; C9803; J1170; J1644; J2405; J7030; U0003

== ENCOUNTER 2020-10-01 01:50 | Emergency (ER) | payer OTHER ==
[~2020-10-01] VITALS: Ht 167.6 cm; Wt 63.5 kg
[2020-10-01] MEDS ORDERED: ELIQUIS5 MG PO (02:07)
--- NOTE | 2020-10-01 11:26 | EKG ---
[facility] [address] [facility] [place] [address] Signed Normal sinus rhythm Incomplete right bundle branch block Prolonged QT Abnormal ECG When compared with ECG of 14-JUN-2020 04:13, No significant change was found Confirmed by EDWIN MAK MD ([id number]) on 10/01/2020 11:26:34 AM Electronically Signed By: EDWIN MAK MD 10/01/20 1126 PATIENT NAME: FORTUNATO VERGARA Electrocardiogram DATE OF : 61 PHYSICIAN: EDWIN MAK MD REPORT #: [id number] REPORT IS CONFIDENTIAL AND NOT TO BE RELEASED WITHOUT AUTHORIZATION
== END 2020-10-01 04:59 | disposition home or self-care (01) ==
LOC: ED 01:50
DX: R55 Syncope and collapse (principal); F17.200 Nicotine dependence, unspecified, uncomplicated; Z88.0 Allergy status to penicillin; Z79.899 Other long term (current) drug therapy
CPT/HCPCS: 80053; 81001; 83735; 84484; 85025; 93005; 93010; 96360; 99285-25; J7030; J7121

== ENCOUNTER 2021-05-14 12:58 | Emergency (ER) | payer OTHER ==
[~2021-05-14] VITALS: Ht 167.6 cm; Wt 63.5 kg
[~2021-05-14 12:58] MED LIST changes: +ELIQUIS5 MG PO
[2021-05-14] MEDS ORDERED: ELIQUIS5 MG PO ×2 (17:19→17:20)
--- NOTE | 2021-05-15 18:52 | EKG ---
[facility] [address] [facility] [place] [address] Signed Sinus rhythm with occasional premature ventricular complexes Right bundle branch block Abnormal ECG When compared with ECG of 01-OCT-2020 01:56, premature ventricular complexes are now present Confirmed by EDWIN MAK MD ([id number]) on 05/15/2021 6:52:11 PM Electronically Signed By: EDWIN MAK MD 05/15/211851 PATIENT NAME: FORTUNATO VERGARA Electrocardiogram DATE OF : 61 PHYSICIAN: EDWIN MAK MD REPORT #: [id number] REPORT IS CONFIDENTIAL AND NOT TO BE RELEASED WITHOUT AUTHORIZATION
== END 2021-05-14 18:35 | disposition home or self-care (01) ==
LOC: ED 12:58
DX: I70.201 Unspecified atherosclerosis of native arteries of extremities, right leg (principal); F17.200 Nicotine dependence, unspecified, uncomplicated; Z88.0 Allergy status to penicillin
CPT/HCPCS: 36415; 73706; 80053; 83605; 85025; 85610; 85730; 93005; 93010; 99284-25; J1644; J7040; U0003

== ENCOUNTER 2022-01-26 19:54 | Emergency (ER) | payer OTHER ==
[~2022-01-26] VITALS: Ht 167.6 cm; Wt 63.5 kg
[2022-01-26] MEDS ORDERED: PENTOXIFYLLINE400 MG PO (21:57)
== END 2022-01-26 22:17 | disposition home or self-care (01) ==
LOC: ED 19:54
DX: I73.9 Peripheral vascular disease, unspecified (principal); Z88.0 Allergy status to penicillin; Z79.01 Long term (current) use of anticoagulants
CPT/HCPCS: 93926

== ENCOUNTER 2022-02-08 06:47 | Emergency (ER) | payer OTHER ==
[~2022-02-08] VITALS: Ht 167.6 cm; Wt 63.5 kg
[~2022-02-08 06:47] MED LIST changes: +PENTOXIFYLLINE400 MG PO
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
[2022-02-08] MEDS ORDERED: GABAPENTIN300 MG PO (07:25)
== END 2022-02-08 07:38 | disposition home or self-care (01) ==
LOC: ED 06:47
DX: M79.674 Pain in right toe(s) (principal); M79.671 Pain in right foot; F17.200 Nicotine dependence, unspecified, uncomplicated; Z88.0 Allergy status to penicillin; Z79.899 Other long term (current) drug therapy
CPT/HCPCS: 73630; 99283-25

== ENCOUNTER 2022-03-02 22:28 | Emergency (ER) | payer OTHER ==
[~2022-03-02] VITALS: Ht 167.6 cm; Wt 69.4 kg
[~2022-03-02 22:28] MED LIST changes: +GABAPENTIN300 MG PO
--- OUTSIDE RECORDS SUMMARY | 2022-03-02 22:30 | XMS ---
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 - 2 Visits in 30 Days CARE PROVIDERS There are no care providers on record at this time. Zuri has no Care Guidelines for this patient. Stephanie V[facility]IT COUNT (12 MO.) [facility] 4 [facility] TOTAL 6 NOTE: Visits indicate total known visits. 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 [facility] [place] TYPE: Emergency COMPLAINT: - LEG AND FOOT NUMB DIAGNOSES: - USP (current) use of anticoagulants - Peripheral vascular disease, unspecified - Anesthesia of skin - Allergy status to penicillin 11/22/2021 23:25 [facility] [place] TYPE: Emergency COMPLAINT: - RLE pain DIAGNOSES: - Personal history of other venous thrombosis and embolism - Pain in right lower leg - Allergy status to other antibiotic agents - Low back pain, unspecified - Nicotine dependence, cigarettes, uncomplicated - USP (current) use of anticoagulants 05/14/2021 12:59 [facility] [place] TYPE: Emergency COMPLAINT: - R LEG NUMBNESS DIAGNOSES: - Allergy status to penicillin - Nicotine dependence, unspecified, uncomplicated - Anesthesia of skin - Unspecified atherosclerosis of [place] arteries of extremities, right leg INPATIENT VISIT TRACKING (12 MO.) No inpatient visits to display in this time frame [id number]
[2022-03-02] MEDS ORDERED: ELIQUIS5 MG PO (22:43)
[2022-03-02] MEDS ORDERED: OXYCODONE-ACET1 EAC1 PO (22:43)
[2022-03-02] MEDS ORDERED: BACTRIM DS TAB1 EACH PO (23:06)
== END 2022-03-02 23:49 | disposition home or self-care (01) ==
LOC: ED 22:28
DX: L03.115 Cellulitis of right lower limb (principal); F17.200 Nicotine dependence, unspecified, uncomplicated; Z79.01 Long term (current) use of anticoagulants; Z86.718 Personal history of other venous thrombosis and embolism; Z03.6 Encounter for observation for suspected toxic effect from ingested substance ruled out
CPT/HCPCS: 99283; A9270

== ENCOUNTER 2022-04-29 05:53 | Emergency (ER) | payer OTHER ==
[~2022-04-29] VITALS: Ht 167.6 cm; Wt 63.5 kg
[~2022-04-29 05:53] MED LIST changes: +BACTRIM DS TAB1 EACH PO; +OXYCODONE-ACET1 EAC1 PO
--- OUTSIDE RECORDS SUMMARY | 2022-04-29 05:57 | XMS ---
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 Zuri has no Care Guidelines for this patient. EGina VISIT COUNT (12 MO.) 1 [facility] 1 [facility] 6 [facility] [place] TOTAL 8 NOTE: Visits indicate total known visits. ED/UCC VISIT TRACKING (12 MO.) 04/29/2022 05:[address] [facility] [address] [facility] [place] TYPE: Emergency COMPLAINT: - BACK PAIN 04/22/2022 16:51 [facility] Oseguera TYPE: Emergency COMPLAINT: - SUICIDAL IDEATIONS DIAGNOSES: - Allergy status to penicillin - Nicotine dependence, unspecified, uncomplicated - jail (current) use of anticoagulants - Suicidal ideations 03/02/2022 22:[address] [facility] [address] 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 [place] TYPE: Emergency COMPLAINT: - RLE pain DIAGNOSES: - Nicotine dependence, cigarettes, uncomplicated - jail (current) use of anticoagulants - Personal history of other venous thrombosis and embolism - Pain in right lower leg - Allergy status to other antibiotic agents - Low back pain, unspecified 05/14/2021 12:59 [facility] [place] TYPE: Emergency COMPLAINT: - R LEG NUMBNESS DIAGNOSES: - Anesthesia of skin - Unspecified atherosclerosis of [place] arteries of extremities, right leg - Allergy status to penicillin - Nicotine dependence, unspecified, uncomplicated INPATIENT VISIT TRACKING (12 MO.) No inpatient visits to display in this time frame [id number]
[2022-04-29] MEDS ORDERED: PENTOXIFYLLINE400 MG PO (06:07)
[2022-04-29] MEDS ORDERED: GABAPENTIN300 MG PO (06:08)
--- NOTE | 2022-04-29 13:59 | EKG ---
[facility] [address] [facility] [place] [address] Signed Normal sinus rhythm Incomplete right bundle branch block Borderline ECG When compared with ECG of 14-MAY-2021 15:27, premature ventricular complexes are no longer present Confirmed by EDWIN MAK MD ([id number]) on 04/29/2022 1:59:14 PM Electronically Signed By: EDWIN MAK MD 04/29/22 1359 PATIENT NAME: FORTUNATO VERGARA Electrocardiogram DATE OF : 61 PHYSICIAN: EDWIN MAK MD REPORT #: [id number] REPORT IS CONFIDENTIAL AND NOT TO BE RELEASED WITHOUT AUTHORIZATION
== END 2022-04-29 08:42 | disposition home or self-care (01) ==
LOC: ED 05:53
DX: M54.6 Pain in thoracic spine (principal); F10.20 Alcohol dependence, uncomplicated; F15.90 Other stimulant use, unspecified, uncomplicated; F17.200 Nicotine dependence, unspecified, uncomplicated; Z88.0 Allergy status to penicillin; Z79.899 Other long term (current) drug therapy; Z79.01 Long term (current) use of anticoagulants; Z20.822 Contact with and (suspected) exposure to COVID-19
CPT/HCPCS: 36415; 71045; 80053; 81001; 84484; 85025; 85379; 87502; 93005; 93010; 96374; 96375; 99284-25; A9270; J2270; J2405; U0003

== ENCOUNTER 2022-08-19 11:34 | Emergency (ER) | payer OTHER ==
[~2022-08-19] VITALS: Ht 167.6 cm; Wt 63.5 kg
[2022-08-19] MEDS ORDERED: HYDROCODON-ACE1 EA11 PO (12:40)
[2022-08-19 14:44] VITALS: BP 138/79
== END 2022-08-19 14:45 | disposition home or self-care (01) ==
LOC: ED 11:34
DX: S42.031A Displaced fracture of lateral end of right clavicle, initial encounter for closed fracture (principal); S01.81XA Laceration without foreign body of other part of head, initial encounter; W18.30XA Fall on same level, unspecified, initial encounter; F17.200 Nicotine dependence, unspecified, uncomplicated; Z88.0 Allergy status to penicillin; Z79.899 Other long term (current) drug therapy
CPT/HCPCS: 12011; 73030; 73200; 99284-25; A9270

== ENCOUNTER 2022-08-28 23:23 | Emergency (ER) | payer OTHER ==
[~2022-08-28] VITALS: Ht 167.6 cm; Wt 63.5 kg
[~2022-08-28 23:23] MED LIST changes: +HYDROCODON-ACE1 EA11 PO
--- OUTSIDE RECORDS SUMMARY | 2022-08-28 23:26 | XMS ---
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 E.DKaia VISIT COUNT (12 MO.) 1 [facility] [address] TOTAL 9 NOTE: Visits indicate total known visits. ED/UCC VISIT TRACKING (12 MO.) 08/28/2022 23:[address] [facility] [address] 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 therapy - Pain in right shoulder 04/29/2022 05:53 [facility] [place] TYPE: Emergency COMPLAINT: - BACK PAIN DIAGNOSES: - Alcohol dependence, uncomplicated - Allergy status to penicillin - Contact with and (suspected) exposure to COVID-19 - correction (current) use of anticoagulants - Nicotine dependence, unspecified, uncomplicated - Other nursing home (current) drug therapy - Other stimulant use, unspecified, uncomplicated - Pain in thoracic spine 04/22/2022 16:51 [facility] [place] TYPE: Emergency COMPLAINT: - SUICIDAL IDEATIONS DIAGNOSES: - Allergy status to penicillin - correction (current) use of anticoagulants - Nicotine dependence, unspecified, uncomplicated - Suicidal ideations 03/02/2022 22:29 [facility] [place] TYPE: Emergency COMPLAINT: - OD ACCIDENTAL DIAGNOSES: - Cellulitis of right lower limb - Encounter for observation for suspected toxic effect from ingested substance ruled out - correction (current) use of anticoagulants - Nicotine dependence, unspecified, uncomplicated - Pain in right toe(s) - Personal history of other venous thrombosis and embolism 02/14/2022 22:56 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
[2022-08-28] MEDS ORDERED: HYDROCODON-ACE1 EA10 PO (23:57)
[2022-08-29 00:13] VITALS: BP 119/75
== END 2022-08-29 00:13 | disposition home or self-care (01) ==
LOC: ED 23:23
DX: S42.001D Fracture of unspecified part of right clavicle, subsequent encounter for fracture with routine healing (principal); S22.41XD Multiple fractures of ribs, right side, subsequent encounter for fracture with routine healing; X58.XXXD Exposure to other specified factors, subsequent encounter; F17.200 Nicotine dependence, unspecified, uncomplicated; Z88.0 Allergy status to penicillin; Z79.899 Other long term (current) drug therapy
CPT/HCPCS: 99283; A9270

== ENCOUNTER 2022-12-21 15:32 | Emergency (ER) | payer OTHER ==
[~2022-12-21] VITALS: Ht 167.6 cm; Wt 58.5 kg
[~2022-12-21 15:32] MED LIST changes: +HYDROCODON-ACE1 EA10 PO
--- OUTSIDE RECORDS SUMMARY | 2022-12-21 15:35 | XMS ---
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 E.DKaia VISIT COUNT (12 MO.) 8 [facility] TOTAL 9 NOTE: Visits indicate total known visits. ED/UCC VISIT TRACKING (12 MO.) 12/21/2022 15:33 [facility] [place] [place] TYPE: Emergency COMPLAINT: - RT LEG SWELLING 08/28/2022 23:24 [facility] [place] TYPE: Emergency COMPLAINT: - RIB PAIN DIAGNOSES: - Allergy status to penicillin - Exposure to other specified factors, subsequent encounter - Fracture of unspecified part of right clavicle, subsequent encounter for fracture with routine healing - Multiple fractures of ribs, right side, subsequent encounter for fracture with routine healing - Nicotine dependence, unspecified, uncomplicated - Other nursing home (current) drug therapy - Pleurodynia 08/19/2022 11:35 [facility] [place] TYPE: Emergency [...] Other nursing home (current) drug therapy - Pain in right shoulder 04/29/2022 05:53 [facility] [place] TYPE: Emergency COMPLAINT: - BACK PAIN DIAGNOSES: - Alcohol dependence, uncomplicated - Allergy status to penicillin - Contact with and (suspected) exposure to COVID-19 - 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 - Nicotine dependence, unspecified, uncomplicated - Other nursing home (current) drug therapy - Other stimulant use, unspecified, uncomplicated - Pain in thoracic spine 04/22/2022 16:51 [facility] [place] [place] TYPE: Emergency COMPLAINT: - SUICIDAL IDEATIONS DIAGNOSES: - Allergy status to penicillin - [facility] (current) use of anticoagulants - Nicotine dependence, unspecified, uncomplicated - Suicidal ideations 03/02/2022 22:29 [facility] [place] TYPE: Emergency COMPLAINT: - OD ACCIDENTAL DIAGNOSES: - Cellulitis of right lower limb - Encounter for observation for suspected toxic effect from ingested substance ruled out - [facility] (current) use of anticoagulants - Nicotine dependence, unspecified, uncomplicated - Pain in right toe(s) - Personal history of other venous thrombosis and embolism [facility]14/2022 22:[facility] [place] [facility] DIAGNOSES: - Pain in right toe(s) - toe pain 02/08/2022 06:47 [facility] [place] TYPE: Emergency COMPLAINT: - TOE PN DIAGNOSES: - Allergy status to penicillin - Nicotine dependence, unspecified, uncomplicated - Other nursing home (current) drug therapy - Pain in right foot - Pain in right toe(s) 01/26/2022 19:56 [facility] Oseguera TYPE: Emergency COMPLAINT: - LEG AND FOOT NUMB DIAGNOSES: - Allergy status to penicillin - Anesthesia of skin - 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
[2022-12-21] MEDS ORDERED: NEURONTIN100 MG PO (20:12)
[2022-12-21 20:24] VITALS: BP 114/74
== END 2022-12-21 20:25 | disposition home or self-care (01) ==
LOC: ED 15:32
DX: R20.2 Paresthesia of skin (principal); F17.200 Nicotine dependence, unspecified, uncomplicated; Z88.0 Allergy status to penicillin
CPT/HCPCS: 93926

== ENCOUNTER 2025-03-08 03:32 | Emergency (ER) | payer MEDICARE ==
[~2025-03-08] VITALS: Ht 167.6 cm; Wt 63.0 kg
[~2025-03-08 03:32] MED LIST changes: +ATORVASTATIN CA40 MG PO; +AZITHROMYCIN500 MG PO; +CLOPIDOGREL75 MG PO; +ELIQUIS2.5 MG PO; +GABAPENTIN100 MG PO; +NEURONTIN100 MG PO; +OXYCODONE HCL5 MG PO
[2025-03-08 03:44] LABS: BASOPHILS 1.0 % (0.1-1.2); EOSINOPHILS 1.4 % (0.7-5.8); LYMPHOCYTES 26.4 % (19.3-51.7); MCH 33.6 PG (25.6-32.2); MCHC 33.4 g/dL (32.2-35.5); MCV 100.6 fL (79.4-94.8); MONOCYTES 8.5 % (4.7-12.5); NEUTROPHILS 62.4 % (34.0-71.1); RBC 3.51 M/uL (3.93-5.22)
[2025-03-08] MEDS ORDERED: diazePAM 10 MG/2 ML SYR IV ONE (03:45)
[2025-03-08] MEDS ORDERED: LORazepam 2 MG/ML VIAL IV/IM PRN (03:45)
[2025-03-08] MEDS ORDERED: THIAMINE HCL 200 MG/2 ML VIAL IV ONE (03:45)
[2025-03-08] MEDS ORDERED: LACTATED RINGER'S 1,000 ML IV ONE (03:45)
[2025-03-08] MEDS ORDERED: FOLIC ACID 1 MG/0.2 ML ML IV ONE (03:45)
[2025-03-08 03:54] LABS: ALCOHOL, MEDICAL <3 ng/dL (<3); ALT (SGPT) 26 U/L (14-59); AST (SGOT) 25 U/L (15-37); GLOMERULAR FILTRATION RATE,EST 79 mL/min (>60); PHOSPHORUS, INORGANIC 3.6 mg/dL (2.5-4.9); PROTEIN, TOTAL 6.9 g/dL (6.4-8.2); UREA NITROGEN 23 mg/dL (7-18)
[2025-03-08] MEDS ORDERED: NALTREXONE HCL50 MG PO (04:45)
[2025-03-08 05:54] VITALS: BP 116/71
== END 2025-03-08 05:30 | disposition home or self-care (01) ==
LOC: ED 03:32
PROVIDERS: Family Medicine
DX: R56.9 Unspecified convulsions (principal); F19.10 Other psychoactive substance abuse, uncomplicated; F17.200 Nicotine dependence, unspecified, uncomplicated; Z88.1 Allergy status to other antibiotic agents; Z88.0 Allergy status to penicillin
CPT/HCPCS: 36415; 80053; 80307; 83735; 84100; 85025; 96374; 96375; 99285-25; G0480; J1953; J3360; J3411; J7121